=== PATIENT | female | born 1995 | race Caucasian/White ===

== ENCOUNTER 2016-09-21 01:17 | Emergency (ER) | payer OTHER ==
[2016-09-21 01:25] VITALS: TEMP 99; BMI 41.0
--- NOTE | 2016-09-21 01:40 | PDOC ---
History of Present Illness - General Chief Complaint: Pain, Acute Stated Complaint: ABDOMINAL PAIN Time Seen by Provider: 09/21/16 01:20 History Source: Patient Exam Limitations: No Limitations - History of Present Illness Travel History: No Timing/Duration: reports: intermittent Quality: reports: mild Abdominal Pain Onset Location: reports: suprapubic (right) Pain Radiation: reports: no radiation Past History - Travel Traveled outside of the country in the last 30 days: No Close contact w/someone who was outside of country & ill: No - Past Medical History Allergies/Adverse Reactions: Allergies Allergy/AdvReac Type Severity Reaction Status Date / Time No Known Allergies Allergy Verified 09/21/16 01:20 Home Medications: Ambulatory Orders Acyclovir [Zovirax -] 800 mg PO BID 08/23/16 Asthma: Yes - Surgical History Abdominal Surgery: Yes Appendectomy: Yes - Reproductive History (#): 0 Para: 0 Cervical CA: No Dysfunctional Uterine Bleeding: No Ectopic : No Endometrial CA: No Polycystic Ovaries: No Therapeutic (s) & number: No Tubal Ligation: No - Immunization History Immunization Up to Date: Yes - Psycho/Social/Smoking Cessation Hx Anxiety: No Suicidal Ideation: No Smoking Status: No Smoking History: Never smoked Have you smoked in the past 12 months: No Number of Cigarettes Smoked Daily: 0 Hx Alcohol Use: Yes (SOCIAL) Drug/Substance Use Hx: No Substance Use Type: None Abd/GI Specific PMHX - Complaint Specific PMHX Colitis: No Gall Bladder Disease: No GERD: No Hepatitis: No Irritable Bowel Synd (IBS): No Review of Systems - Review of Systems Able to Perform ROS?: Yes Comments:: 09/21/16 01:51 CONSTITUTIONAL: Absent: fever, chills, diaphoresis, generalized weakness, malaise, loss of appetite HEENT: Absent: rhinorrhea, nasal congestion, throat pain, throat swelling, difficulty swallowing, mouth swelling, ear pain, eye pain, visual Changes CARDIOVASCULAR: Absent: chest pain, loss of consciousness, palpitations, irregular heart rate, peripheral edema RESPIRATORY: Absent: cough, shortness of breath, dyspnea with exertion, orthopnea, wheezing, stridor, hemoptysis GASTROINTESTINAL: Absent: abdominal pain, abdominal distension, nausea, vomiting, diarrhea, constipation, melena, hematochezia GENITOURINARY: Left suprapubic pain +frequency, urgency, hesitancy, Absent: dysuria, hematuria, flank pain, genital pain MUSCULOSKELETAL: Absent: myalgia, arthralgia, joint swelling SKIN: Absent: rash, itching, pallor HEMATOLOGIC/IMMUNOLOGIC: Absent: easy bleeding, easy bruising, lymphadenopathy, frequent infections ENDOCRINE: Absent: unexplained weight gain, unexplained weight loss, heat intolerance, cold intolerance NEUROLOGIC: Absent: headache, focal weakness or paresthesias, dizziness, unsteady gait, seizure, mental status changes, bladder or bowel incontinence PSYCHIATRIC: Absent: anxiety, depression, suicidal or homicidal ideation, hallucinations. Is the patient limited Mauritanian proficient: No *Physical Exam - Vital Signs Last Vital Signs Temp Pulse Resp BP Pulse Ox 99 F 113 H 20 128/72 97 09/21/16 01:20 09/21/16 01:20 09/21/16 01:20 09/21/16 01:20 09/21/16 01:20 - Physical Exam Comments: 09/21/16 01:52 GENERAL: Well developed, well nourished. Awake and alert. No acute distress. HEENT: Normocephalic, atraumatic. PERRLA, EOMI. No conjunctival pallor. Sclera are non- icteric. Moist mucous membranes. Oropharynx is clear. NECK: Supple. Full ROM. No JVD. Carotid pulses 2+ and symmetric, without bruits. No thyromegaly. No lymphadenopathy. CARDIOVASCULAR: Regular rate and rhythm. No murmurs, rubs, or gallops. Distal pulses are 2+ and symmetric. PULMONARY: No evidence of respiratory distress. Lungs clear to auscultation bilaterally. No wheezing, rales or rhonchi. ABDOMINAL: Soft. Non-tender. Non-distended. No rebound or guarding. No organomegaly. Normoactive bowel sounds. MUSCULOSKELETAL Normal range of motion at all joints. No bony deformities or tenderness. No CVA tenderness. EXTREMITIES: No cyanosis. No clubbing. No edema. No calf tenderness. SKIN: Warm and dry. Normal capillary refill. No rashes. No jaundice. NEUROLOGICAL: Alert, awake, appropriate. Cranial nerves 2-12 intact. No deficits to light touch and temperature in face, upper extremities and lower extremities. No motor deficits in the in face, upper extremities and lower extremities. Normoreflexic in the upper and lower extremities. Normal speech. Toes are down- going bilaterally. Gait is normal without ataxia. PSYCHIATRIC: Cooperative. Good eye contact. Appropriate mood and affect. ED Treatment Course - LABORATORY CBC & Chemistry Diagram: 09/21/16 02:54 09/21/16 02:54 - RADIOLOGY Radiograph Interpretation: 09/21/16 03:09 Patient Name: Megan Real THIS IS A PRELIMINARYREPORT FROM IMAGING SLOT FLOORPERSON EXAM: Transabdominal pelvic ultrasound, endovaginal pelvic ultrasound and pelvic duplex IMAGES: 27 INDICATION: Suprapubic pain DATE OF SERVICE: 2016-09-21 02:16:17.0 COMPARISON: none FINDINGS: Transabdominal pelvic ultrasound:Uterus is anteverted and measures 7.1centimeters in length. Endovaginal pelvic ultrasound: The endometrium is 3millimeters in thickness which is normal. There are no fibroids. The right ovary measures 3.8centimeters in length, contains a 2.3 cm slightly complex cyst and demonstrates normal flow. Left ovary measures 3.5centimeters in length appears normal demonstrates normal flow. There is no significant free fluid. Pelvic duplex: There is normal arterial and venous flow in both ovaries. IMPRESSION: 2.3 cm slightly complex right ovarian cyst without torsion or free fluid. THIS DOCUMENT HAS BEEN ELECTRONICALLY SIGNED Rich Weller MD 09/21/2016 03:02 CLIVE [place] Please call Imaging Supervisor [employer] [phone] ([phone]) with questions 09/21/16 03:10 Patient Name: Megan Real THIS IS A PRELIMINARYREPORT FROM IMAGING [facility]LOOR[facility] EXAM: Ultrasound abdomen limited, right upper quadrant and limited abdominal duplex IMAGES: 38 INDICATION: Right upper quadrant pain DATE OF SERVICE: 2016-09-21 02:05:48.0 COMPARISON: none FINDINGS: Right upper quadrant ultrasound:The liver is normal, without mass or biliary duct dilation. The gallbladder is partially collapsed but appears normal. The CBD is not dilated and measures4 millimeters in diameter. Right kidney measures 10.0centimeters in length and is unremarkable. The visualized aorta and IVC are normal. Pancreas is partially obscured, but appears normal. Abdominal duplex: The main portal vein demonstrates normal hepatopedal flow. IMPRESSION: No evidence of pathology. THIS DOCUMENT HAS BEEN ELECTRONICALLY SIGNED Rich Weller MD 09/21/16 03:28 Progress Note - Progress Note Progress Note: 21-year-old female presents to the emergency department complaining of right supra pubic pain 2 weeks with urinary urgency/frequency without hematuria/vag d /c or bleed. As as 2 days ago, patient developed right upper quadrant discomfort. Pain is described as 3/10 dull nonradiating intermittent discomfort. There are no exacerbating or alleviating factors. Patient reports she developed a dry cough with a low-grade fever and chills but no n/v/d, cp, sob. Pt believes her discomfort to her abd is from taking acyclovir (x5d). Pt also ran out of her inhaler/proair *DC/Admit/Observation/Transfer Diagnosis at time of Disposition: Cyst of ovary Qualifiers: Laterality: right Qualified Code(s): N83.20 - Unspecified ovarian cysts UTI (urinary tract infection) Qualifiers: Urinary tract infection type: acute cystitis Hematuria presence: without hematuria Qualified Code(s): N30.00 - Acute cystitis without hematuria - Discharge Dispostion Disposition: HOME Condition at time of disposition: Improved Admit: No - Referrals Referrals: Angus Adames [Primary Care Provider] - Destiny Unger MD [Staff Physician] - - Patient Instructions Printed Discharge Instructions: Urinary Tract Infection, DI for Ovarian Cyst Additional Instructions: Take tylenol/motrin as needed for pain Rest Pelvic rest Increase fluids Follow up with your lead architect or the one listed on your discharge
[2016-09-21 03:01] LABS: URINE APPEARANCE CLEAR; URINE BILIRUBIN NEGATIVE (NEGATIVE); URINE COLOR YELLOW; URINE GLUCOSE (UA) NEGATIVE (NEGATIVE); URINE KETONE NEGATIVE (NEGATIVE); URINE NITRITE NEGATIVE (NEGATIVE); URINE UROBILINOGEN NEGATIVE E.U./dl (0.2-1.0)
[2016-09-21 03:02] LABS: MCH 32.2 pg (25.7-33.7); MCHC 33.6 g/dl (32.0-36.0); MEAN CELL VOLUME 95.9 fl (80-96); MEAN PLT VOLUME 8.6 fl (7.5-11.1); PLATELET COUNT 243 K/MM3 (134-434); RDW 13.1 % (11.6-15.6); WHITE BLOOD COUNT 8.1 K/mm3 (4.0-10.0)
[2016-09-21 03:03] LABS: URINE BLOOD 1+ (NEGATIVE); URINE LEUK ESTERASE TRACE (NEGATIVE); URINE PROTEIN 1+ (NEGATIVE)
[2016-09-21 03:06] LABS: URINE BACTERIA RARE /hpf (NONE SEEN); URINE HYALINE CAST 4 /lpf; URINE MUCUS RARE; URINE RBC 2 /hpf (0-3); URINE WBC 6 /hpf (3-5)
[2016-09-21 03:20] LABS: ALBUMIN 3.8 g/dl (3.4-5.0); ANION GAP 10 (8-16); BILIRUBIN,TOTAL 0.3 mg/dL (0.2-1.0); CALCIUM 8.8 mg/dL (8.5-10.1); CO2 25 mmol/L (21-32); CREATININE 0.8 mg/dL (0.55-1.02); GLUCOSE,RANDOM 101 mg/dL (74-106); SGOT/AST 21 U/L (15-37); SGPT/ALT 34 U/L (12-78); TOT PROT 7.7 g/dl (6.4-8.2)
[2016-09-21 03:21] LABS: ALK PHOS 93 U/L (45-117)
[2016-09-21 03:38] LABS: PLATELET COMMENT2 NO CLOTTING DETECTED; PLATELET ESTIMATE ADEQUATE (NORMAL)
[2016-09-21 03:39] VITALS: BP 115/70; PULSE 76
== END 2016-09-21 03:39 | disposition home or self-care (01) ==
LOC: JER 01:17
DX: N30.00 Acute cystitis without hematuria (principal); N83.291 Other ovarian cyst, right side
CPT/HCPCS: 36415; 76705-TC; 76830-TC; 80053; 81003; 81015; 84703; 85025; 99282-25

== ENCOUNTER 2016-09-22 12:46 | Emergency (ER) | payer OTHER ==
[2016-09-22 13:17] VITALS: BP 125/45; PULSE 88; TEMP 98; BMI 39.6
--- NOTE | 2016-09-22 16:52 | PDOC ---
History of Present Illness - General Chief Complaint: Pain, Acute Stated Complaint: PAIN Time Seen by Provider: 09/22/16 16:45 History Source: Patient Exam Limitations: No Limitations - History of Present Illness Initial Comments: CHIEF COMPLAINT: 21 y/o afebrile female with PMH Herpes c/o right sided pelvic pain. HISTORY OF PRESENT ILLNESS: The patient was seen here approximately 36 hours ago for the same complaint. She was diagnosed with a right ovarian cyst and was discharged to home. She states she has been taking 200mg of Ibuprofen every once in a while for the pain with little relief. She denies f/c, n/v/d, CP, SOB, back pain, hematuria, dysuria. She tried to see her [employer]AM MEMBER but could not get an appointment until next week. Vital signs on arrival are within normal limits. REVIEW OF SYSTEMS: GENERAL/CONSTITUTIONAL: No fever/chills. No weakness. No weight change. HEAD, EYES, EARS, NOSE AND THROAT: No change in vision. No ear pain or discharge. No sore throat. CARDIOVASCULAR: No chest pain or shortness of breath. RESPIRATORY: No cough, wheezing, or hemoptysis. GASTROINTESTINAL: +right pelvic pain. No nausea, vomiting, diarrhea, constipation. GENITOURINARY: No dysuria, frequency, or change in urination. MUSCULOSKELETAL: No joint or muscle swelling or pain. No neck or back pain. SKIN: No rash or easy bruising. NEUROLOGIC: No headache, vertigo, loss of consciousness, or loss of sensation. PHYSICAL EXAM: GENERAL: The patient is awake, alert, and fully oriented, in no acute distress. The patient is well appearing, obese and ambulatory. HEAD: Normal with no signs of trauma. ENT: Pupils equal, round and reactive to light, extraocular movements intact, sclera anicteric, conjunctiva clear. Neck supple. LUNGS: Clear to auscultation bilaterally. Normal excursion. No respiratory distress or use of accessory muscles. CV: RRR, S1/S2, no MRG. Cap refill < 2 sec. ABDOMEN: Soft, obese, TTP of RLQ/right pelvic region. No rebound, guarding or rigidity. No flank pain b/l BACK: No CVA TTP b/l VAGINAL: Right adnexal TTP and CMT. Small painful lesion seen at entrance to vaginal canal, consistent with herpes. EXTREMITIES: Normal range of motion, no edema. NEUROLOGICAL: Normal speech, normal gait. CN II-XII grossly intact. PSYCH: Normal mood, normal affect. SKIN: Warm, dry, normal turgor, no rashes or lesions noted. Past History - Past Medical History Allergies/Adverse Reactions: Allergies Allergy/AdvReac Type Severity Reaction Status Date / Time No Known Allergies Allergy Verified 09/22/16 13:14 Home Medications: Ambulatory Orders NK [No Known Home Medication] 09/22/16 Asthma: Yes Other medical history: OVARIAN CYST - Surgical History Abdominal Surgery: Yes Appendectomy: Yes - Reproductive History (#): 0 Para: 0 Cervical CA: No Dysfunctional Uterine Bleeding: No Ectopic : No Endometrial CA: No Polycystic Ovaries: No Therapeutic (s) & number: No Tubal Ligation: No - Immunization History Immunization Up to Date: Yes - Psycho/Social/Smoking Cessation Hx Anxiety: No Suicidal Ideation: No Smoking Status: No Smoking History: Never smoked Have you smoked in the past 12 months: No Number of Cigarettes Smoked Daily: 0 Information on smoking cessation initiated: No Hx Alcohol Use: No Drug/Substance Use Hx: No Substance Use Type: None *Physical Exam - Vital Signs Last Vital Signs Temp Pulse Resp BP Pulse Ox 98.0 F 88 18 125/45 100 09/22/16 13:14 09/22/16 13:14 09/22/16 13:14 09/22/16 13:14 09/22/16 13:14 Medical Decision Making - Medical Decision Making A/P: 21 y/o female with diagnosed right ovarian cyst who is underdosing herself with Ibuprofen c/o continued right pelvic pain. Plan is as follows: 1. UA/culture 2. Repeat transvaginal ultrasound 3. IM Toradol hcg drawn 2 days ago - negative; will not recheck I am signing this patient out to my colleague: CANDI Vuong In brief, this patient is being seen in the ED for a chief complaint of: right pelvic pain I have completed the initial assessment interview note and have ordered: UA/ culture I have reviewed the following results: UA Pending results are: Transvaginal US Plan for disposition is as follows: Pending *DC/Admit/Observation/Transfer Diagnosis at time of Disposition: Pelvic pain Ovarian cyst Qualifiers: Laterality: right Qualified Code(s): N83.20 - Unspecified ovarian cysts - Discharge Dispostion Condition at time of disposition: Stable
[2016-09-22 18:05] LABS: URINE APPEARANCE CLEAR; URINE BILIRUBIN NEGATIVE (NEGATIVE); URINE COLOR YELLOW; URINE GLUCOSE (UA) NEGATIVE (NEGATIVE); URINE KETONE 2+ (NEGATIVE); URINE NITRITE NEGATIVE (NEGATIVE); URINE PROTEIN NEGATIVE (NEGATIVE); URINE UROBILINOGEN NEGATIVE E.U./dl (0.2-1.0)
[2016-09-22 18:14] LABS: URINE BLOOD 1+ (NEGATIVE); URINE LEUK ESTERASE TRACE (NEGATIVE)
[2016-09-22 18:15] LABS: URINE MUCUS RARE; URINE RBC 2 /hpf (0-3); URINE WBC 2 /hpf (3-5)
[2016-09-22] MEDS ORDERED: KETOROLAC TROMETHAMINE 60 MG/2 ML VIAL IM ONE (18:38)
[2016-09-22] MEDS ORDERED: KETOROLAC TROMETHAMINE 60 MG/2 ML VIAL ONE (19:14)
--- NOTE | 2016-09-22 19:20 | PDOC ---
*Physical Exam - Vital Signs Last Vital Signs Temp Pulse Resp BP Pulse Ox 98.0 F 88 18 125/45 100 09/22/16 13:14 09/22/16 13:14 09/22/16 13:14 09/22/16 13:14 09/22/16 13:14 - Physical Exam Comments: 09/22/16 19:20 Sign-out received from outgoing ER provider Jose Angel. Pt interviewed and examined. Ancillary studies reviewed. Awaiting TV US results. 09/22/16 21:49 Ultrasound results: A small right ovarian cyst is noted which appears to be slightly diminished in size comparison to previous exam of 09/21/2016 ? due to cyst rupture. Department of a small amount of free fluid is seen within the cul- de-sac. Read by Chung Nance M.D. Patient reassessed. Patient complains of worsening nausea and abdominal pain. Discussed with patient that she can be managed outpatient with pain control or admitted for observation. At this time patient states she wants to stay. Will administer pain medication and reassess. -Perococet 5/325 po -8 mg Zofran ODT ED Treatment Course - ADDITIONAL ORDERS Additional order review: Laboratory Results 09/22/16 17:53 Urine Color Yellow Urine Appearance Clear Urine pH 6.0 Ur Specific Man 1.019 Urine Protein Negative Urine Glucose (UA) Negative Urine Ketones 2+ H Urine Blood 1+ H Urine Nitrite Negative Urine Bilirubin Negative Urine Urobilinogen Negative Ur Leukocyte Esterase Trace H Urine RBC 2 Urine WBC 2 Ur Epithelial Cells Rare Urine Mucus Rare *DC/Admit/Observation/Transfer Diagnosis at time of Disposition: Pelvic pain, Ruptured ovarian cyst Ovarian cyst Qualifiers: Laterality: right Qualified Code(s): N83.20 - Unspecified ovarian cysts - Discharge Dispostion Disposition: HOME Condition at time of disposition: Stable Admit: No - Prescriptions Prescriptions: Oxycodone HCl/Acetaminophen [Percocet 5-325 mg Tablet] 1 tab PO Q8H PRN #15 tablet MDD 3 PRN Reason: Pain Ondansetron [Zofran *Odt*] 8 mg SL TID PRN #12 od.tablet PRN Reason: Nausea And/Or Vomiting - Referrals Referrals: Angus Adames [Primary Care Provider] - Everardo Rae MD [Staff Physician] - - Patient Instructions Printed Discharge Instructions: DI for Ovarian Cyst Additional Instructions: Please take medication as prescribed. As discussed, do not operate vehicles or heavy machinery while taking Percocet. You MUST follow up with a realtime court reporter in the next two days. If you experience any severe pain, extreme vaginal bleeding (more than one soaked pad per hour (, fever, chills, nausea, vomiting, diarrhea, that is not resolved with medication or any new or worsening symptoms please return to the ED. - Post Discharge Activity Work/School Note: Back to Work
[2016-09-22] MEDS ORDERED: OXYCODONE/APAP 5/325MG COMBO TABLET PO ONE (21:30)
[2016-09-22] MEDS ORDERED: ONDANSETRON *ODT* 4 MG TABLET SL ONE (21:40)
[2016-09-22] MEDS ORDERED: ONDANSETRON *ODT* 4 MG TABLET ONE (21:52)
[2016-09-22] MEDS ORDERED: OXYCODONE/APAP 5/325MG COMBO TABLET ONE (21:52)
== END 2016-09-22 23:14 | disposition home or self-care (01) ==
LOC: JER 12:46
PROC: 3E0233Z Introduction of Anti-inflammatory into Muscle, Percutaneous Approach (ICD-10-PCS; principal; 2016-09-22)
DX: N83.291 Other ovarian cyst, right side (principal); J45.909 Unspecified asthma, uncomplicated
CPT/HCPCS: 76830-TC; 81003; 81015; 87086; 96372; 99282-25

== ENCOUNTER 2017-05-04 05:08 | Emergency (ER) | payer OTHER ==
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
[2017-05-04] MEDS ORDERED: ACETAMINOPHEN 500 MG TABLET (FP) PO ONE (06:34)
[2017-05-04] MEDS ORDERED: BACITRACIN 15 GM TUBE TOPICAL OINTMENT TP ONE (06:34)
[2017-05-04] MEDS ORDERED: DIPHTH,PERTUSS(ACELL),TET VAC 0.5 ML VIAL IM ONE (06:34)
[2017-05-04] MEDS ORDERED: ACETAMINOPHEN 325 MG TABLET (FP) ONE (06:34)
[2017-05-04] MEDS ORDERED: BACITRACIN 0.9 GM PACKET ONE (06:40)
[2017-05-04 07:04] VITALS: BMI 30.2
[2017-05-04 07:10] LABS: URINE APPEARANCE CLOUDY; URINE BILIRUBIN NEGATIVE (NEGATIVE); URINE BLOOD 1+ (NEGATIVE); URINE COLOR YELLOW; URINE GLUCOSE (UA) NEGATIVE (NEGATIVE); URINE KETONE 1+ (NEGATIVE); URINE LEUK ESTERASE TRACE (NEGATIVE); URINE NITRITE NEGATIVE (NEGATIVE); URINE UROBILINOGEN NEGATIVE mg/dL (0.2-1.0)
[2017-05-04 07:14] LABS: URINE PROTEIN 2+ (NEGATIVE)
[2017-05-04 07:15] LABS: URINE MUCUS FEW; URINE RBC 2 /hpf (0-3); URINE WBC 8 /hpf (3-5)
--- NOTE | 2017-05-04 07:41 | PDOC ---
*Physical Exam - Vital Signs Last Vital Signs Temp Pulse Resp BP Pulse Ox 97.9 F 85 18 130/70 100 05/04/17 05:09 05/04/17 05:09 05/04/17 05:09 05/04/17 05:09 05/04/17 05:09 ED Treatment Course - ADDITIONAL ORDERS Additional order review: Laboratory Results 05/04/17 05/04/17 06:41 06:41 Urine Color Yellow Urine Appearance Cloudy Urine pH 5.0 Urine Protein 2+ H Urine Glucose (UA) Negative Urine Ketones 1+ H Urine Blood 1+ H Urine Nitrite Negative Urine Bilirubin Negative Urine Urobilinogen Negative Ur Leukocyte Esterase Trace Urine RBC 2 Urine WBC 8 Ur Epithelial Cells Moderate Urine Mucus Few Urine HCG, Qual Negative - Medications Given in the ED: ED Medications Discontinued Medications Generic Name Dose Route Start Last Admin Trade Name Freq PRN Reason Stop Dose Admin Acetaminophen 1,000 mg 05/04/17 06:34 05/04/17 06:39 Tylenol - PO 05/04/17 06:35 1,000 mg ONCE ONE Administration Bacitracin 1 applic 05/04/17 06:34 05/04/17 06:49 Bacitracin - TP 05/04/17 06:35 1 applic ONCE ONE Administration Diphtheria/Tetanus/Acell Pertussis 0.5 ml 05/04/17 06:34 05/04/17 06:38 Adacel Adolescent/Adult - IM 05/04/17 06:35 0.5 ml .ONCE ONE Administration *DC/Admit/Observation/Transfer Diagnosis at time of Disposition: Closed head injury Qualifiers: Encounter type: initial encounter Qualified Code(s): S09.90XA - Unspecified injury of head, initial encounter - Discharge Dispostion Disposition: HOME Condition at time of disposition: Stable Admit: No - Referrals Referrals: Angus Adames [Primary Care Provider] - - Patient Instructions - Post Discharge Activity
[2017-05-04 10:09] VITALS: BP 101/55; PULSE 81; TEMP 98.1
== END 2017-05-04 10:09 | disposition home or self-care (01) ==
LOC: JER 05:08
PROC: 3E0234Z Introduction of Serum, Toxoid and Vaccine into Muscle, Percutaneous Approach (ICD-10-PCS; principal; 2017-05-04)
DX: S00.03XA Contusion of scalp, initial encounter (principal); S01.81XA Laceration without foreign body of other part of head, initial encounter; S01.21XA Laceration without foreign body of nose, initial encounter; Y04.0XXA Assault by unarmed brawl or fight, initial encounter; Y93.89 Activity, other specified; Y92.014 Private driveway to single-family (private) house as the place of occurrence of the external cause; Y07.411 Sister, perpetrator of maltreatment and neglect
CPT/HCPCS: 70450-TC; 81003; 81015; 84703; 90471; 90715; 99285-25

== ENCOUNTER 2017-07-23 15:48 | Emergency (ER) | payer OTHER ==
[2017-07-23 16:04] VITALS: BMI 31.1
[2017-07-23 16:59] LABS: BASOPHIL 0.4 % (0-2.0); EOSINOPHIL 2.4 % (0-4.5); MCH 32.1 pg (25.7-33.7); MCHC 33.9 g/dl (32.0-36.0); MEAN CELL VOLUME 94.8 fl (80-96); MEAN PLT VOLUME 8.5 fl (7.5-11.1); NEUTROPHILS 63.3 % (42.8-82.8); PLATELET COUNT 277 K/MM3 (134-434); WHITE BLOOD COUNT 10.8 K/mm3 (4.0-10.0)
--- NOTE | 2017-07-23 17:05 | PDOC ---
History of Present Illness - General Chief Complaint: Pain, Acute Stated Complaint: ABD PAIN Time Seen by Provider: 07/23/17 16:38 - History of Present Illness Initial Comments: 07/23/17 16:59 21 yo F with h/o appendectomy who presents with RLQ abdominal pain. Pt. reports onset of sharp, remitting, RLQ abdominal pain beginning yesterday evening. Has been exeperiencing crampy abdominal pain for 2 weeks. Also endorses vaginal spotting and nausea yesterday evening and this morning. No clots or tissues visualized. Denies fevers/chills, dysuria, hematuria, appetite changes, diarrhea/constipation, BRBPR, lightheadedness, chest pain, palpitations, SOB, weakness. No PCP. confirmed by urine BHCG at outpatient [facility]OMER ASSISTANT ( Liss Almendarez) 2 weeks ago. Not on OCP. Transvaginal U/S () Unremarkable. LMP 05/01/17 with irregular spotting and dysmennorhea. Past History - Past Medical History Allergies/Adverse Reactions: Allergies Allergy/AdvReac Type Severity Reaction Status Date / Time No Known Allergies Allergy Verified 07/23/17 15:52 Home Medications: Ambulatory Orders NK [No Known Home Medication] 05/04/17 Asthma: Yes COPD: No - Surgical History Abdominal Surgery: Yes Appendectomy: Yes - Reproductive History Is Patient Now?: Yes (#): 0 Para: 0 Cervical CA: No Dysfunctional Uterine Bleeding: No Ectopic : No Endometrial CA: No Polycystic Ovaries: No Therapeutic (s) & number: Yes (x1) Tubal Ligation: No - Immunization History Immunization Up to Date: Yes - Suicide/Smoking/Psychosocial Hx Smoking Status: No Smoking History: Never smoked Have you smoked in the past 12 months: No Number of Cigarettes Smoked Daily: 0 Information on smoking cessation initiated: Yes Hx Alcohol Use: No Drug/Substance Use Hx: No Substance Use Type: None Review of Systems - Review of Systems Comments:: 07/23/17 17:08 GENERAL/CONSTITUTIONAL: No fever or chills. No weakness. HEAD, EYES, EARS, NOSE AND THROAT: No change in vision. No ear pain or discharge. No sore throat.- CARDIOVASCULAR: No chest pain or shortness of breath RESPIRATORY: No cough, wheezing, or hemoptysis. GASTROINTESTINAL: + Abdominal pain. No nausea, vomiting, diarrhea or constipation. GENITOURINARY:+ Vaginal bleeding. No dysuria, frequency, or change in urination. MUSCULOSKELETAL: No joint or muscle swelling or pain. No neck or back pain. SKIN: No rash NEUROLOGIC: No headache, vertigo, loss of consciousness, or change in strength/ sensation. ENDOCRINE: No increased thirst. No abnormal weight change HEMATOLOGIC/LYMPHATIC: No anemia, easy bleeding, or history of blood clots. ALLERGIC/IMMUNOLOGIC: No hives or skin allergy. *Physical Exam - Vital Signs Last Vital Signs Temp Pulse Resp BP Pulse Ox 97.9 F 94 H 20 117/70 100 07/23/17 15:52 07/23/17 15:52 07/23/17 15:52 07/23/17 15:52 07/23/17 15:52 - Physical Exam Comments: 07/23/17 17:09 GENERAL: Awake, alert, and fully oriented, in no acute distress HEAD: No signs of trauma, normocephalic, atraumatic EYES: PERRLA, EOMI, sclera anicteric, conjunctiva clear ENT: Hearing grossly normal, nares patent, oropharynx clear without exudates. Moist mucosa NECK: Normal ROM, no JVD, or masses LUNGS: No distress, speaks full sentences, clear to auscultation bilaterally HEART: Regular rate and rhythm, normal S1 and S2, no murmurs, rubs or gallops, peripheral pulses normal and equal bilaterally. ABDOMEN: Soft, RLQ > LLQ ttp. Normoactive bowel sounds. No guarding,no rigidity , no rebound. No masses. Neg CVA ttp. EXTREMITIES : Normal inspection, Normal range of motion, no edema. No clubbing or cyanosis. SKIN: Warm, Dry, normal turgor, no rashes or lesions noted. ED Treatment Course - LABORATORY CBC & Chemistry Diagram: 07/23/17 04:45 07/23/17 04:45 Medical Decision Making - Medical Decision Making 07/23/17 17:12 21 yo F with h/o appendectomy who reports acute onset of sharp , remitting, RLQ abdominal pain beginning yesterday evening. Associated with vaginal spotting and nausea yesterday evening and this morning. No clots or tissues visualized. confirmed by in office test 2 weeks ago. Denies fevers/chills, dysuria, hematuria, appetite changes, diarrhea/ constipation, BRBPR, lightheadedness, chest pain, palpitations, SOB, weakness. Physical exam reveals RLQ/LLQ ttp. Hemodynamically stable. Differential includes ectopic vs. ( incomplete, complete, threatened). ED Course: CBC, CMP,Cardiac, BNP, Trop EKG, CXR UA 07/23/17 18:32 CBC, CMP: Unremarkable UA: Neg Patient is comfortable and stable at bedside. Advised to f/u with OBGYN with strict return precautions. Transvaginal U/S pending. 07/23/17 19:13 U/S: 5 w 6 d intrauterine . *DC/Admit/Observation/Transfer Diagnosis at time of Disposition: Vaginal bleeding before 22 weeks gestation - Discharge Dispostion Disposition: HOME Condition at time of disposition: Stable Admit: No - Referrals Referrals: Everardo Rae MD [Staff Physician] - - Patient Instructions Printed Discharge Instructions: DI for Vaginal Bleeding During Additional Instructions: Please return to the emergency department with any new or worsening symptoms or concerns. Please establish care with [facility]IST[facility] physician this following week. - Post Discharge Activity - Attestations Physician Attestion: 07/23/17 18:48 I attest to the information provided in this note.
[2017-07-23] MEDS ORDERED: ACETAMINOPHEN 325 MG TABLET (FP) PO ONE (17:11)
[2017-07-23] MEDS ORDERED: ONDANSETRON 4 MG TABLET PO ONE (17:11)
[2017-07-23] MEDS ORDERED: ONDANSETRON *ODT* 4 MG TABLET ONE (17:17)
[2017-07-23] MEDS ORDERED: ACETAMINOPHEN 325 MG TABLET (FP) ONE (17:17)
[2017-07-23 17:32] LABS: URINE APPEARANCE CLOUDY; URINE BILIRUBIN NEGATIVE (NEGATIVE); URINE BLOOD NEGATIVE (NEGATIVE); URINE COLOR YELLOW; URINE GLUCOSE (UA) NEGATIVE (NEGATIVE); URINE KETONE NEGATIVE (NEGATIVE); URINE NITRITE NEGATIVE (NEGATIVE); URINE PROTEIN NEGATIVE (NEGATIVE); URINE UROBILINOGEN NEGATIVE mg/dL (0.2-1.0)
[2017-07-23 17:37] LABS: ALBUMIN 3.4 g/dl (3.4-5.0); ANION GAP 6 (8-16); CALCIUM 8.5 mg/dL (8.5-10.1); CO2 27 mmol/L (21-32); GLUCOSE,RANDOM 86 mg/dL (74-106); SGOT/AST 17 U/L (15-37); SGPT/ALT 25 U/L (12-78)
--- NOTE | 2017-07-23 17:45 | PDOC ---
Attending Attestation - Resident Resident Name: Daniel Holliday - ED Attending Attestation I have performed the following: I have examined & evaluated the patient, The case was reviewed & discussed with the resident, I agree w/resident's findings & plan, Exceptions are as noted - HPI HPI: 07/23/17 17:42 21 yo F currently , unsure last menstrual period with positive test 2 weeks ago, here today with rlq pain and abd pain. vaginal spotting. no h/o of prior ectopic. pain intermittent. moderate. no mod factors. no urinary complaints. - Physicial Exam PE: 07/23/17 17:44 awake alert lungs clear bilat heart rrr no mrg. abd soft NT ND. skin warm and dry. alert oriented x 3 - Medical Decision Making 07/23/17 17:44 differential includes, ectopic, , iup, uti, ovarian cyst plans labs ua tvus. blood type. 07/23/17 19:12 us demonstrating IUP 5 wk and 6 days iup with yolk sac , no free fluid. blood type RH positive. will follow up with ob given referral.
[2017-07-23 17:53] LABS: ALK PHOS 92 U/L (45-117); BILIRUBIN,TOTAL 0.5 mg/dL (0.2-1.0); TOT PROT 7.1 g/dl (6.4-8.2)
[2017-07-23 19:30] VITALS: BP 107/73; PULSE 82; TEMP 98.7
[2017-07-23 22:32] LABS: URINE LEUK ESTERASE Negative (NEGATIVE)
== END 2017-07-23 19:30 | disposition home or self-care (01) ==
LOC: JER 15:48
DX: O26.891 Other specified pregnancy related conditions, first trimester (principal); O20.8 Other hemorrhage in early pregnancy; Z3A.01 Less than 8 weeks gestation of pregnancy
CPT/HCPCS: 36415; 76817-TC; 80053; 81003; 84702; 85025; 86850; 86900; 86901; 99284-25

== ENCOUNTER 2017-07-28 15:53 | Emergency (ER) | payer OTHER ==
--- NOTE | 2017-07-28 15:59 | PDOC ---
Rapid Medical Evaluation Medical Evaluation: Allergies Allergy/AdvReac Type Severity Reaction Status Date / Time No Known Allergies Allergy Verified 07/28/17 15:54 07/28/17 15:57 Pt here for c/o: vag bleeding, 6 wks preg, + abd pain Pt briefly examined: vss Pt ordered for: cbc, comp, beta hcg, ua, upreg, preg u/s Pt to proceed to the ED <Silvia Lawrence - Last Filed: 07/28/17 15:57> Medical Evaluation: Allergies Allergy/AdvReac Type Severity Reaction Status Date / Time No Known Allergies Allergy Verified 07/28/17 15:57 Vital Signs Temp Pulse Resp BP Pulse Ox 98.1 F 87 18 116/58 100 07/28/17 15:58 07/28/17 15:58 07/28/17 15:58 07/28/17 15:58 07/28/17 15:58 <Sofy Watson - Last Filed: 07/28/17 22:15> Time Seen by Provider: 07/28/17 15:57 Discharge Disposition <Silvia Lawrence - Last Filed: 07/28/17 15:57> <Sofy Watson - Last Filed: 07/28/17 22:15> - Diagnosis Abdominal pain, Vaginal bleeding before 22 weeks gestation
[2017-07-28 16:01] VITALS: BP 116/58; PULSE 87; TEMP 98.1; BMI 30.2
[2017-07-28 16:43] LABS: URINE APPEARANCE CLEAR; URINE BILIRUBIN NEGATIVE (NEGATIVE); URINE BLOOD NEGATIVE (NEGATIVE); URINE COLOR LT. YELLOW; URINE GLUCOSE (UA) NEGATIVE (NEGATIVE); URINE KETONE 1+ (NEGATIVE); URINE NITRITE NEGATIVE (NEGATIVE); URINE PROTEIN NEGATIVE (NEGATIVE); URINE UROBILINOGEN 0.2 mg/dL (0.2-1.0)
[2017-07-28 17:25] LABS: ALBUMIN 3.8 g/dl (3.4-5.0); ANION GAP 11 (8-16); BILIRUBIN,TOTAL 0.8 mg/dL (0.2-1.0); CALCIUM 9.1 mg/dL (8.5-10.1); CO2 23 mmol/L (21-32); CREATININE 0.7 mg/dL (0.55-1.02); GLUCOSE,RANDOM 83 mg/dL (74-106); SGOT/AST 25 U/L (15-37); SGPT/ALT 41 U/L (12-78); TOT PROT 7.2 g/dl (6.4-8.2)
[2017-07-28 17:40] LABS: ALK PHOS 99 U/L (45-117)
[2017-07-28 19:53] LABS: URINE LEUK ESTERASE Negative (NEGATIVE)
--- NOTE | 2017-07-28 22:16 | PDOC ---
History of Present Illness - History of Present Illness Initial Comments: 07/28/17 22:31 The patient is a 21 year old female who is currently (~5 weeks 6 days) , with a significant past medical history of asthma, who presents to the emergency department with vaginal bleeding for 5 days. She states her LMP was in the beginning of May. She was seen 2 weeks ago where they did an ultrasound and she found out that she was 5 weeks . She is currently experiencing suprapublic cramping and small vaginal blood clots. She denies recent fevers, chills, headache or dizziness. She denies recent nausea, vomit, diarrhea or constipation. She denies recent dysuria, frequency, urgency or hematuria. She denies recent chest pain or shortness of breath. Allergies: NKA Past surgical history: tonsillectomy Social history: Nonsmoker. Denies EtOH use and recreational drug use. Primary Care Physician: Angus Adames <Lynette Hathaway - Last Filed: 07/28/17 22:31> <Sofy Watson - Last Filed: 07/29/17 02:17> - General Chief Complaint: Vaginal Bleeding Stated Complaint: ABD PAIN, BLEEDING (6 WKS ) Time Seen by Provider: 07/28/17 15:57 Past History <Lynette Hathaway - Last Filed: 07/28/17 22:31> - Past Medical History Asthma: Yes COPD: No - Surgical History Abdominal Surgery: Yes Appendectomy: Yes - Reproductive History (#): 0 Para: 0 Cervical CA: No Dysfunctional Uterine Bleeding: No Ectopic : No Endometrial CA: No Polycystic Ovaries: No Therapeutic (s) & number: Yes (x1) Tubal Ligation: No - Immunization History Immunization Up to Date: Yes - Suicide/Smoking/Psychosocial Hx Smoking Status: No Smoking History: Never smoked Have you smoked in the past 12 months: No Number of Cigarettes Smoked Daily: 0 Information on smoking cessation initiated: No Hx Alcohol Use: No Drug/Substance Use Hx: No Substance Use Type: None <Sofy Watson - Last Filed: 07/29/17 02:17> - Past Medical History Allergies/Adverse Reactions: Allergies Allergy/AdvReac Type Severity Reaction Status Date / Time No Known Allergies Allergy Verified 07/28/17 15:57 Home Medications: Ambulatory Orders NK [No Known Home Medication] 05/04/17 Abd/GI Specific PMHX - Complaint Specific PMHX Colitis: No Gall Bladder Disease: No GERD: No Hepatitis: No Irritable Bowel Synd (IBS): No <Sofy Watson - Last Filed: 07/29/17 02:17> Review of Systems - Review of Systems Comments:: 07/28/17 22:31 CONSTITUTIONAL: Absent: fever, no chills, no fatigue EYES: Absent: visual changes ENT: Absent: ear pain, no sore throat CARDIOVASCULAR: Absent: chest pain, no palpitations RESPIRATORY: Absent: cough, no SOB GI: Present: suprapubic tenderness. Absent: no nausea, no vomiting, no constipation, no diarrhea GENITOURINARY: Absent: dysuria, no frequency, no hematuria NUTRITION HELPER: Present: passing small blood clots MUSCULOSKELETAL: Absent: back pain, no arthralgia, no myalgia SKIN: Absent: rash NEURO: Absent: headache <Lynette Hathaway - Last Filed: 07/28/17 22:31> *Physical Exam - Vital Signs Last Vital Signs Temp Pulse Resp BP Pulse Ox 98.1 F 87 18 116/58 100 07/28/17 15:58 07/28/17 15:58 07/28/17 15:58 07/28/17 15:58 07/28/17 15:58 - Physical Exam Comments: 07/28/17 22:31 GENERAL: Well-appearing, well-nourished. No apparent distress. HEENT: Normocephalic, atraumatic. PERRL, EOM intact. CARDIOVASCULAR: Normal S1, S2. Regular rate and rhythm. PULMONARY: Clear to auscultation bilaterally. ABDOMEN: Soft, non-distended, suprapubic tenderness. EXTREMITIES: Normal ROM in all four extremities. No gross deformities. SKIN: Warm, dry. No rash NEUROLOGICAL: No focal neurological deficits. <Lynette Hathaway - Last Filed: 07/28/17 22:31> - Vital Signs Last Vital Signs Temp Pulse Resp BP Pulse Ox 98.1 F 87 18 116/58 100 07/28/17 15:58 07/28/17 15:58 07/28/17 15:58 07/28/17 15:58 07/28/17 15:58 <Sofy Watson - Last Filed: 07/29/17 02:17> ED Treatment Course - LABORATORY CBC & Chemistry Diagram: 07/28/17 16:30 07/28/17 16:30 - ADDITIONAL ORDERS Additional order review: Laboratory Results 07/28/17 07/28/17 16:30 16:30 Sodium 137 Potassium 3.9 Chloride 103 Carbon Dioxide 23 Anion Gap 11 BUN 8 D Creatinine 0.7 D Creat Clearance w eGFR > 60 Random Glucose 83 Calcium 9.1 Total Bilirubin 0.8 D AST 25 D ALT 41 D Alkaline Phosphatase 99 Total Protein 7.2 Albumin 3.8 Beta HCG, Quant .1 Urine Color Lt. yellow Urine Appearance Clear Urine pH 8.0 Ur Specific [place] 1.020 Urine Protein Negative Urine Glucose (UA) Negative Urine Ketones 1+ H Urine Blood Negative Urine Nitrite Negative Urine Bilirubin Negative Urine Urobilinogen 0.2 Ur Leukocyte Esterase Negative <Lynette Hathaway - Last Filed: 07/28/17 22:31> - LABORATORY CBC & Chemistry Diagram: 07/28/17 16:30 07/28/17 16:30 - ADDITIONAL ORDERS Additional order review: Laboratory Results 07/28/17 07/28/17 16:30 16:30 Sodium 137 Potassium 3.9 Chloride 103 Carbon Dioxide 23 Anion Gap 11 BUN 8 D Creatinine 0.7 D Creat Clearance w eGFR > 60 Random Glucose 83 Calcium 9.1 Total Bilirubin 0.8 D AST 25 D ALT 41 D Alkaline Phosphatase 99 Total Protein 7.2 Albumin 3.8 Beta HCG, Quant .1 Urine Color Lt. yellow Urine Appearance Clear Urine pH 8.0 Ur Specific [place] 1.020 Urine Protein Negative Urine Glucose (UA) Negative Urine Ketones 1+ H Urine Blood Negative Urine Nitrite Negative Urine Bilirubin Negative Urine Urobilinogen 0.2 Ur Leukocyte Esterase Negative <Sofy Watson - Last Filed: 07/29/17 02:17> Medical Decision Making - Medical Decision Making 07/29/17 02:06 29-year-old female who states she is about 5 weeks and had some brown vaginal discharge. Beta-hCG is 4200. Ultrasound shows intrauterine sac of 5 weeks and 4 days but no pole. Impression threatened AB. Patient has an appointment this week with her [facility] on <Sofy Watson - Last Filed: 07/29/17 02:17> *DC/Admit/Observation/Transfer - Attestations Scribe Attestion: 07/28/17 22:32 Documentation prepared by Lynette Hathaway, acting as medical transcription supervisor for Sofy Watson MD. <Lynette Hathaway - Last Filed: 07/28/17 22:31> <oSfy Watson - Last Filed: 07/29/17 02:17> Diagnosis at time of Disposition: Threatened in early - Discharge Dispostion Disposition: HOME Condition at time of disposition: Stable - Referrals Referrals: Angus Adames [Primary Care Provider] - - Patient Instructions Printed Discharge Instructions: DI for Threatened Additional Instructions: follow up with your manager installation - Post Discharge Activity
[2017-07-28 23:59] LABS: BASOPHIL 0.4 % (0-2.0); MCH 31.7 pg (25.7-33.7); MCHC 32.9 g/dl (32.0-36.0); MEAN CELL VOLUME 96.3 fl (80-96); PLATELET COUNT 319 K/MM3 (134-434); RDW 12.9 % (11.6-15.6); WHITE BLOOD COUNT 12.4 K/mm3 (4.0-10.0)
== END 2017-07-28 23:24 | disposition home or self-care (01) ==
LOC: JER 15:53
DX: O26.891 Other specified pregnancy related conditions, first trimester (principal); O20.0 Threatened abortion; Z3A.01 Less than 8 weeks gestation of pregnancy
CPT/HCPCS: 36415; 76801-TC; 80053; 81003; 84702; 85025; 87086; 99283-25

== ENCOUNTER 2017-09-01 18:58 | Emergency (ER) | payer OTHER ==
[2017-09-01 19:06] VITALS: BP 121/78; PULSE 115; TEMP 98.7; BMI 28.3
--- NOTE | 2017-09-01 19:07 | PDOC ---
Rapid Medical Evaluation Time Seen by Provider: 09/01/17 19:04 Medical Evaluation: Allergies Allergy/AdvReac Type Severity Reaction Status Date / Time No Known Allergies Allergy Verified 09/01/17 19:04 09/01/17 19:04 I have performed a brief in-person evaluation of this patient. The patient presents with a chief complaint of: Abd pain w/ n/v x 1 week. No sig pmhx Pertinent physical exam findings:Tachy to 115 I have ordered the following: labs The patient will proceed to the ED for further evaluation. 09/01/17 19:07
[2017-09-01 19:33] LABS: BASO % 0.3 % (0-2.0); EOS % 2.7 % (0-4.5); HEMATOCRIT 42.1 % (32.4-45.2); LYMPH % 19.3 % (8-40); MCH 31.8 pg (25.7-33.7); MCHC 33.2 g/dl (32.0-36.0); MEAN CELL VOLUME 95.6 fl (80-96); MEAN PLT VOLUME 8.3 fl (7.5-11.1); MONO % 6.1 % (3.8-10.2); NEUT % 71.6 % (42.8-82.8); PLATELET COUNT 310 K/MM3 (134-434); RBC 4.41 M/mm3 (3.60-5.2); RDW 12.9 % (11.6-15.6); WHITE BLOOD COUNT 7.6 K/mm3 (4.0-10.0)
[2017-09-01 19:55] LABS: ALBUMIN 3.9 g/dl (3.4-5.0); ALK PHOS 107 U/L (45-117); ANION GAP 7 (8-16); BILIRUBIN,TOTAL 1.4 mg/dL (0.2-1.0); BLOOD UREA NITROGEN 10 mg/dL (7-18); CALCIUM 8.5 mg/dL (8.5-10.1); CHLORIDE 104 mmol/L (98-107); CO2 26 mmol/L (21-32); CREATININE 0.7 mg/dL (0.55-1.02); GLUCOSE,RANDOM 88 mg/dL (74-106); SGPT/ALT 30 U/L (12-78); SODIUM 137 mmol/L (136-145); TOT PROT 7.9 g/dl (6.4-8.2)
[2017-09-01 19:58] LABS: POTASSIUM 3.7 mmol/L (3.5-5.1); SGOT/AST 20 U/L (15-37)
--- NOTE | 2017-09-01 21:25 | PDOC ---
History of Present Illness - General History Source: Patient Exam Limitations: No Limitations - History of Present Illness Initial Comments: 09/01/17 22:57 Patient is a 22 year old female with a significant past medical history of Appendectomy, s/p AB (Surgical) x2 weeks, who presents to the ED with complaints of right sided abdominal pain that began this morning. Patient reports getting 2 weeks ago on August 15, while 10 weeks . She reports experiencing intermittent right sided abdominal pain since this morning suddenly while at home. Patient does not rate abdominal pain on a scale but states right sided abdominal pain is a stabbing pain that was intense enough to wake her from sleep. She reports experiencing vomiting and constipation, but is unsure if it is related to her abdominal pain. Patient's Beta levels were 20,000 at end of July, and is currently at 50 while in the ED. Patient states she had sexual intercourse 1 week following her procedure. Denies chest pain, SOB. Denies contact with sick individuals, out of state travel. Denies any other symptoms. Allergies: None Social history: Live with daughter. No smoking. No alcohol. No illicit drugs. Surgical history: Appendectomy PMD: None <Jamal Renteria - Last Filed: 09/01/17 22:56> <Sofy Watson - Last Filed: 09/01/17 23:56> - General Chief Complaint: Pain Stated Complaint: NAUSEA/VOMITING Time Seen by Provider: 09/01/17 19:04 Past History <Jamal Renteria - Last Filed: 09/01/17 22:56> - Past Medical History Asthma: Yes COPD: No - Surgical History Abdominal Surgery: Yes Appendectomy: Yes - Reproductive History (#): 0 Para: 0 Cervical CA: No Dysfunctional Uterine Bleeding: No Ectopic : No Endometrial CA: No Polycystic Ovaries: No Therapeutic (s) & number: Yes (x1) Tubal Ligation: No - Immunization History Immunization Up to Date: Yes - Suicide/Smoking/Psychosocial Hx Smoking Status: No Smoking History: Never smoked Have you smoked in the past 12 months: No Number of Cigarettes Smoked Daily: 0 Information on smoking cessation initiated: No Hx Alcohol Use: No Drug/Substance Use Hx: No Substance Use Type: None <Sofy Watson - Last Filed: 09/01/17 23:56> - Past Medical History Allergies/Adverse Reactions: Allergies Allergy/AdvReac Type Severity Reaction Status Date / Time No Known Allergies Allergy Verified 09/01/17 19:04 Home Medications: Ambulatory Orders Ranitidine HCl [Zantac] 150 mg PO DAILY PRN #14 tablet 09/01/17 Abd/GI Specific PMHX - Complaint Specific PMHX Colitis: No Gall Bladder Disease: No GERD: No Hepatitis: No Irritable Bowel Synd (IBS): No <Sofy Watson - Last Filed: 09/01/17 23:56> Review of Systems - Review of Systems Able to Perform ROS?: Yes Comments:: 09/01/17 22:57 CONSTITUTIONAL: Absent: fever, no chills, no fatigue EYES: Absent: visual changes ENT: Absent: ear pain, no sore throat CARDIOVASCULAR: Absent: chest pain, no palpitations RESPIRATORY: Absent: cough, no SOB GI: +Right sided abdominal pain. +Vomiting. +Constipation. Absent: no nausea, no diarrhea GENITOURINARY: Absent: dysuria, no frequency, no hematuria MUSCULOSKELETAL: Absent: back pain, no arthralgia, no myalgia SKIN: Absent: rash NEURO: Absent: headache All Other Systems: Reviewed and Negative <Jamal Renteria - Last Filed: 09/01/17 22:56> *Physical Exam - Vital Signs Last Vital Signs Temp Pulse Resp BP Pulse Ox 98.7 F 115 H 18 121/78 100 09/01/17 19:04 09/01/17 19:04 09/01/17 19:04 09/01/17 19:04 09/01/17 19:04 - Physical Exam Comments: 09/01/17 22:57 GENERAL: Well-appearing, well-nourished. No apparent distress. HEENT: Normocephalic, atraumatic. PERRL, EOM intact. CARDIOVASCULAR: Normal S1, S2. Regular rate and rhythm. PULMONARY: Clear to auscultation bilaterally. ABDOMEN: Soft, non-distended, non-tender. EXTREMITIES: Normal ROM in all four extremities. No gross deformities. SKIN: Warm, dry. No rash NEUROLOGICAL: No focal neurological deficits. <Jamal Renteria - Last Filed: 09/01/17 22:56> - Vital Signs Last Vital Signs Temp Pulse Resp BP Pulse Ox 98.7 F 115 H 18 121/78 100 09/01/17 19:04 09/01/17 19:04 09/01/17 19:04 09/01/17 19:04 09/01/17 19:04 <Sofy Watson - Last Filed: 09/01/17 23:56> ED Treatment Course - LABORATORY CBC & Chemistry Diagram: 09/01/17 19:17 09/01/17 19:17 - ADDITIONAL ORDERS Additional order review: Laboratory Results 09/01/17 09/01/17 09/01/17 22:00 19:17 19:17 Sodium Potassium Chloride Carbon Dioxide Anion Gap BUN Creatinine Creat Clearance w eGFR Random Glucose Calcium Total Bilirubin AST ALT Alkaline Phosphatase Total Protein Albumin Beta HCG, Quant 54.6 Serum , Qual Positive Urine Color Yellow Urine Appearance Clear Urine pH 5.0 D Ur Specific [place] 1.024 Urine Protein Negative Urine Glucose (UA) Negative Urine Ketones Negative Urine Blood 1+ H Urine Nitrite Negative Urine Bilirubin Negative Urine Urobilinogen 2.0 H 09/01/17 19:17 Sodium 137 Potassium 3.7 Chloride 104 Carbon Dioxide 26 Anion Gap 7 L BUN 10 D Creatinine 0.7 Creat Clearance w eGFR > 60 Random Glucose 88 Calcium 8.5 Total Bilirubin 1.4 H D AST 20 ALT 30 D Alkaline Phosphatase 107 Total Protein 7.9 Albumin 3.9 Beta HCG, Quant Serum , Qual Urine Color Urine Appearance Urine pH Ur Specific [place] Urine Protein Urine Glucose (UA) Urine Ketones Urine Blood Urine Nitrite Urine Bilirubin Urine Urobilinogen 09/01/17 19:17 RBC 4.41 MCV 95.6 MCHC 33.2 RDW 12.9 MPV 8.3 Neutrophils % 71.6 D Lymphocytes % 19.3 D Monocytes % 6.1 Eosinophils % 2.7 Basophils % 0.3 - Medications Given in the ED: ED Medications Discontinued Medications Generic Name Dose Route Start Last Admin Trade Name Freq PRN Reason Stop Dose Admin Al Hydroxide/Mg Hydroxide 30 ml 09/01/17 21:30 09/01/17 21:56 Mylanta Oral Suspension - PO 09/01/17 21:31 30 ml ONCE ONE Administration Ondansetron HCl 4 mg 09/01/17 21:29 09/01/17 21:56 Zofran Odt - SL 09/01/17 21:30 4 mg ONCE ONE Administration <Jamal Renteria - Last Filed: 09/01/17 22:56> - LABORATORY CBC & Chemistry Diagram: 09/01/17 19:17 09/01/17 19:17 - ADDITIONAL ORDERS Additional order review: Laboratory Results 09/01/17 09/01/17 09/01/17 19:17 19:17 19:17 Sodium 137 Potassium 3.7 Chloride 104 Carbon Dioxide 26 Anion Gap 7 L BUN 10 D Creatinine 0.7 Creat Clearance w eGFR > 60 Random Glucose 88 Calcium 8.5 Total Bilirubin 1.4 H D AST 20 ALT 30 D Alkaline Phosphatase 107 Total Protein 7.9 Albumin 3.9 Beta HCG, Quant 54.6 Serum , Qual Positive 09/01/17 19:17 RBC 4.41 MCV 95.6 MCHC 33.2 RDW 12.9 MPV 8.3 Neutrophils % 71.6 D Lymphocytes % 19.3 D Monocytes % 6.1 Eosinophils % 2.7 Basophils % 0.3 <Sofy Watson - Last Filed: 09/01/17 23:56> Medical Decision Making - Medical Decision Making 09/01/17 23:54 22-year-old female presents with epigastric pain, several episodes of nausea and vomiting and vaginal bleeding. History of present illness patient states she had a surgical on 2016. I reviewed her old chart and found that she had an ER visit on July 28, at which time she had a pelvic ultrasound that showed a single live IUP of 6 weeks. At that time her beta hCG was above 20,000. Her abdominal exam shows some epigastric tenderness but there is no rebound or guarding. She does not have any right lower quadrant tenderness. Urinalysis was negative. Beta-hCG was 50. I spoke with Dr. Nance and he looked at her abdominal ultrasound and he said it was essentially unremarkable with no evidence of acute cholecystitis Assessment, beta-hCG, the patient's labs are essentially noncontributory. Patient told she needs to have a repeat beta-hCG. Within the week to make sure that it does become 0. Prescription for PPI, sent to [facility] <Sofy Watson - Last Filed: 09/01/17 23:56> *DC/Admit/Observation/Transfer - Attestations Scribe Attestion: 09/01/17 22:57 Documentation prepared by Jamal Myra, acting as medical reimbursement specialist for Sofy Watson MD/DO. <Jamal Renteria - Last Filed: 09/01/17 22:56> <Sofy Watson - Last Filed: 09/01/17 23:56> Diagnosis at time of Disposition: Epigastric abdominal pain, Positive test - Discharge Dispostion Disposition: HOME Condition at time of disposition: Stable - Prescriptions Prescriptions: Ranitidine HCl [Zantac] 150 mg PO DAILY PRN #14 tablet PRN Reason: Nausea And/Or Vomiting - Patient Instructions Additional Instructions: Please avoid fatty,fried foods You still have a positive test . You need to have it repeated in 1 week to make sure it is decreasing Return for any worsening symptoms
[2017-09-01] MEDS ORDERED: ONDANSETRON *ODT* 4 MG TABLET SL ONE (21:29)
[2017-09-01] MEDS ORDERED: MAG HYDROX/AL HYDROX/SIMETH 30 ML UNIT-DOSE CUP PO ONE (21:30)
[2017-09-01] MEDS ORDERED: ONDANSETRON *ODT* 4 MG TABLET ONE (21:42)
[2017-09-01] MEDS ORDERED: MAG HYDROX/AL HYDROX/SIMETH 30 ML UNIT-DOSE CUP ONE (21:43)
[2017-09-01 22:32] LABS: URINE APPEARANCE CLEAR; URINE BILIRUBIN NEGATIVE (NEGATIVE); URINE BLOOD 1+ (NEGATIVE); URINE COLOR YELLOW; URINE GLUCOSE (UA) NEGATIVE (NEGATIVE); URINE KETONE NEGATIVE (NEGATIVE); URINE LEUK ESTERASE NEGATIVE (NEGATIVE); URINE NITRITE NEGATIVE (NEGATIVE); URINE PROTEIN NEGATIVE (NEGATIVE)
[2017-09-01 23:15] LABS: EPI CELLS RARE /HPF (FEW); URINE MUCUS MANY
== END 2017-09-02 | disposition home or self-care (01) ==
LOC: JER 18:58
DX: R10.13 Epigastric pain (principal); O03.6 Delayed or excessive hemorrhage following complete or unspecified spontaneous abortion
CPT/HCPCS: 36415; 76705-TC; 80053; 81003; 81015; 84702; 84703; 85025; 99282-25

== ENCOUNTER 2017-10-06 20:55 | Emergency (ER) | payer OTHER ==
--- NOTE | 2017-10-06 21:14 | PDOC ---
Rapid Medical Evaluation Time Seen by Provider: 10/06/17 21:11 Medical Evaluation: Allergies Allergy/AdvReac Type Severity Reaction Status Date / Time No Known Allergies Allergy Verified 09/01/17 19:04 10/06/17 21:11 22 year old female with asthma (overnight hospitalizations in childhood), genital herpes, with 4 days of abdominal pain, constipation, vomiting, nasal congestion, cough, and fever. Hx appendectomy, tonsillectomy. Lungs CTAB. -Tylenol -Rapid flu -To FT for further evaluation
[2017-10-06 21:16] VITALS: BP 107/70; PULSE 112; TEMP 101.5; BMI 34.0
--- NOTE | 2017-10-06 21:21 | PDOC ---
History of Present Illness - General Chief Complaint: Cold Symptoms Stated Complaint: CHILLS/FEVER Time Seen by Provider: 10/06/17 21:11 Past History - Past Medical History Allergies/Adverse Reactions: Allergies Allergy/AdvReac Type Severity Reaction Status Date / Time No Known Allergies Allergy Verified 10/06/17 21:13 Home Medications: Ambulatory Orders Ranitidine HCl [Zantac] 150 mg PO DAILY PRN #14 tablet 09/01/17 Acyclovir [Zovirax -] 400 mg PO TID #15 capsule 10/06/17 Albuterol Sulfate [Proventil HFA Inhaler -] 1 - 2 inh PO QID #1 inhaler Asthma: Yes COPD: No Other medical history: Herpes - Surgical History Abdominal Surgery: Yes Appendectomy: Yes - Reproductive History (#): 0 Para: 0 Cervical CA: No Dysfunctional Uterine Bleeding: No Ectopic : No Endometrial CA: No Polycystic Ovaries: No Therapeutic (s) & number: Yes (x1) Tubal Ligation: No - Immunization History Immunization Up to Date: Yes - Suicide/Smoking/Psychosocial Hx Smoking Status: No Smoking History: Never smoked Have you smoked in the past 12 months: No Number of Cigarettes Smoked Daily: 0 Information on smoking cessation initiated: No Hx Alcohol Use: No Drug/Substance Use Hx: No Substance Use Type: None *Physical Exam - Vital Signs Last Vital Signs Temp Pulse Resp BP Pulse Ox 101.5 F H 112 H 20 107/70 98 10/06/17 21:14 10/06/17 21:14 10/06/17 21:14 10/06/17 21:14 10/06/17 21:14 Medical Decision Making - Medical Decision Making 10/06/17 21:19 22-year-old female, history of asthma, genital herpes, presents with body aches including abdominal pain, some constipation, vomiting, URI symptoms and fever 4 days. No shortness of breath, chest pain or wheezing at this time. Patient requesting refill of her albuterol pump. Also requesting prescription for acyclovir given current genital outbreak 2 days, consistent with her herpes. Patient well-appearing, with low-grade fever and unremarkable exam otherwise. Motrin givem, flu pending 10/06/17 21:37 10/06/17 22:12 Flu positive. Given duration of symptoms, no benefit in giving Tamiflu. Vitals improved with meds. DC with supportive treatment. Contact precautions given 10/06/17 22:14 *DC/Admit/Observation/Transfer Diagnosis at time of Disposition: Influenza, Medication refill - Discharge Dispostion Disposition: HOME Condition at time of disposition: Improved - Prescriptions Prescriptions: Acyclovir [Zovirax -] 400 mg PO TID #15 capsule Albuterol Sulfate [Proventil HFA Inhaler -] 1 - 2 inh PO QID #1 inhaler - Referrals Referrals: Angus Adames [Primary Care Provider] - - Patient Instructions Printed Discharge Instructions: Influenza Additional Instructions: You have the flu. Rest, drink plenty of fluids and take Motrin or Tylenol for pain and/or fever - Post Discharge Activity
[2017-10-06] MEDS ORDERED: IBUPROFEN 400 MG TABLET (FP) PO ONE ×2 (21:36→21:38)
== END 2017-10-06 22:22 | disposition home or self-care (01) ==
LOC: JERFT 20:55
DX: J09.X2 Influenza due to identified novel influenza A virus with other respiratory manifestations (principal); J45.909 Unspecified asthma, uncomplicated; Z76.0 Encounter for issue of repeat prescription; A60.04 Herpesviral vulvovaginitis
CPT/HCPCS: 87804; 99281-25

== ENCOUNTER 2018-01-14 15:03 | Emergency (ER) | payer OTHER ==
[2018-01-14 15:37] VITALS: TEMP 98.6; BMI 38.0
--- NOTE | 2018-01-14 15:44 | PDOC ---
Rapid Medical Evaluation Chief Complaint: Vaginal Bleeding Time Seen by Provider: 01/14/18 15:37 Medical Evaluation: Allergies Allergy/AdvReac Type Severity Reaction Status Date / Time No Known Allergies Allergy Verified 01/14/18 15:35 Vital Signs Temp Pulse Resp BP Pulse Ox 98.6 F 101 H 18 108/70 100 01/14/18 15:35 01/14/18 15:35 01/14/18 15:35 01/14/18 15:35 01/14/18 15:35 01/14/18 15:39 The patient presents with a chief complaint of: Vaginal bleeding for three days. Took pill and has been bleeding since. Also prescribed misopristol. Has not taken it. Going through 3-4 pads every 3 hours. Also with back pain/cramping I have performed a brief in-person evaluation of this patient; Pertinent physical exam findings: ambulatory, in no respiratory distress I have ordered the following: CBC, type and screen, beta, UA, UC, transvaginal us The patient will proceed to the ED for further evaluation.
[2018-01-14 16:41] LABS: BASO % 0.4 % (0-2.0); EOS % 1.3 % (0-4.5); HEMATOCRIT 41.3 % (32.4-45.2); HEMOGLOBIN 13.5 GM/dL (10.7-15.3); LYMPH % 34.5 % (8-40); MCH 31.4 pg (25.7-33.7); MCHC 32.7 g/dl (32.0-36.0); MEAN CELL VOLUME 95.9 fl (80-96); MEAN PLT VOLUME 8.3 fl (7.5-11.1); MONO % 8.9 % (3.8-10.2); NEUT % 54.9 % (42.8-82.8); PLATELET COUNT 272 K/MM3 (134-434); RBC 4.31 M/mm3 (3.60-5.2); RDW 13.3 % (11.6-15.6); WHITE BLOOD COUNT 9.7 K/mm3 (4.0-10.0)
--- NOTE | 2018-01-14 17:03 | PDOC ---
Attending Attestation - HPI HPI: 01/14/18 18:28 This is a 22 YOF who is (two prior D&C's) and who took misoprostol from [facility] 5 days ago to terminate her [id number] . She presents with heavy bright red vaginal bleeding with clots and some white material for the past 3 day. She reports associated lower abdominal cramping radiating to her lower back. She has been taking Motrin for the cramping with minimal relief. She denies any LOC, palpitations, chest pain, dysuria, strange smells to the urine, leg swelling, or other symptoms. - Physicial Exam PE: 01/14/18 18:28 GENERAL: Awake, alert, and fully oriented, in no acute distress HEAD: No signs of trauma EYES: PERRLA, EOMI, sclera anicteric, conjunctiva clear ENT: Auricles normal inspection, hearing grossly normal, nares patent, oropharynx clear without exudates. Moist mucosa NECK: Normal ROM, supple, no lymphadenopathy, JVD, or masses LUNGS: Breath sounds equal, clear to auscultation bilaterally. No wheezes, and no crackles HEART: (+) Tachycardic with regular rhythm, normal S1 and S2, no murmurs, rubs or gallops ABDOMEN: (+) Suprapubic tenderness. Soft, normoactive bowel sounds. No guarding , no rebound. No masses EXTREMITIES: Normal range of motion, no edema. No clubbing or cyanosis. No cords, erythema, or tenderness NEUROLOGICAL: Cranial nerves II through XII grossly intact. Normal speech, normal gait SKIN: Warm, Dry, normal turgor, no rashes or lesions noted. - Medical Decision Making 01/14/18 18:28 Documentation prepared by Bryson Scanlon, acting as biomedical electronics technician for Hannah Garvin DO. <Bryson Scanlon - Last Filed: 01/14/18 18:32> - Resident Resident Name: Liset Owens - ED Attending Attestation I have performed the following: I have examined & evaluated the patient, The case was reviewed & discussed with the resident, I agree w/resident's findings & plan, Exceptions are as noted - Medical Decision Making 01/14/18 17:03 I, Dr. Hannah Garvin DO, attest that this document has been prepared under my direction and personally reviewed by me in its entirety. I further attest, that it accurately reflects all work, treatment, procedures and medical decision -making performed by me. 01/14/18 22:09 h/h stable resident discussed the case with dr. so who recommended doxy and [facility]. 01/14/18 22:09 a/p: 22yo female with medical ab 5 days ago with vaginal bleeding -concern given 7 pads per day of bleeding, passing clots -will check labs, type and screen -will obtain ultrasound will monitor and reassess 01/14/18 22:10 hemoglobin stable 01/14/18 22:11 stable for d/c to home <Hannah Garvin - Last Filed: 01/14/18 22:11> Heart Score/ECG Review - ECG Impressions Comment:: 01/14/18 18:32 Sinus 69 normal axis normal interval no st or t changes <Bryson Scanlon - Last Filed: 01/14/18 18:32>
[2018-01-14 17:21] LABS: URINE APPEARANCE SLCLOUDY; URINE BILIRUBIN NEGATIVE (<2.0 mg/dL); URINE COLOR YELLOW; URINE GLUCOSE (UA) NEGATIVE (NEGATIVE); URINE KETONE NEGATIVE (NEGATIVE); URINE LEUK ESTERASE NEGATIVE (NEGATIVE); URINE NITRITE NEGATIVE (NEGATIVE); URINE PROTEIN NEGATIVE (NEGATIVE)
[2018-01-14 17:27] LABS: CALCIUM OXALATE CRYSTALS RARE /hpf (NONE SEEN); EPI CELLS RARE /HPF (FEW); URINE MUCUS RARE
--- NOTE | 2018-01-14 17:58 | PDOC ---
History of Present Illness - General Chief Complaint: Vaginal Bleeding Stated Complaint: VAGINAL BLEEDING, LIGHTHEADED Time Seen by Provider: 01/14/18 15:37 History Source: Patient Exam Limitations: No Limitations - History of Present Illness Initial Comments: This is a 22 YOF who is (two prior D&C's) and who took misoprostol from [facility] 5 days ago to terminate her [id number] . She presents with heavy bright red vaginal bleeding with clots and some white material for the past 3 days, and soaking 5 heavy-duty feminine pads over 30 minutes [employer]FU[employer] to the ED. She additionally notes moderate lower abdominal cramping radiating to her bilateral lower back, mild headache, lightheadedness, fatigue, and mild shortness of breath. She has never had these symptoms before. She has been taking Motrin for the cramping with minimal relief. She denies any LOC, palpitations, chest pain, dysuria, strange smells to the urine, leg swelling, or other symptoms. Past History - Past Medical History Allergies/Adverse Reactions: Allergies Allergy/AdvReac Type Severity Reaction Status Date / Time No Known Allergies Allergy Verified 01/14/18 15:35 Home Medications: Ambulatory Orders NK [No Known Home Medication] 01/14/18 Asthma: Yes COPD: No - Surgical History Abdominal Surgery: Yes Appendectomy: Yes - Reproductive History (#): 0 Para: 0 Cervical CA: No Dysfunctional Uterine Bleeding: No Ectopic : No Endometrial CA: No Polycystic Ovaries: No Therapeutic (s) & number: Yes (x1) Tubal Ligation: No - Immunization History Immunization Up to Date: Yes - Suicide/Smoking/Psychosocial Hx Smoking Status: No Smoking History: Never smoked Have you smoked in the past 12 months: No Number of Cigarettes Smoked Daily: 4 Information on smoking cessation initiated: No Hx Alcohol Use: No Drug/Substance Use Hx: No Substance Use Type: None Abd/GI Specific PMHX - Complaint Specific PMHX Colitis: No Gall Bladder Disease: No GERD: No Hepatitis: No Irritable Bowel Synd (IBS): No Review of Systems - Review of Systems Able to Perform ROS?: Yes Constitutional: Yes: Weakness, Other (fatigue). No: Chills, Fever, Unexplained wgt Loss HEENTM: No: Nose Congestion, Throat Pain Respiratory: Yes: Shortness of Breath (mild). No: Cough Cardiac (ROS): Yes: Lightheadedness. No: Chest Pain, Edema, Palpitations ABD/GI: Yes: Other (lower abdominal pain). No: Constipated, Diarrhea, Nausea, Vomiting : Yes: Other (vaginal bleeding). No: Burning, Dysuria Musculoskeletal: Yes: Back Pain. No: Neck Pain Integumentary: No: Bruising, Rash Neurological: Yes: Headache. No: Numbness, Tingling, Weakness Endocrine: No: Unexplained Weight Gain, Unexplained Weight Loss *Physical Exam - Vital Signs Last Vital Signs Temp Pulse Resp BP Pulse Ox 98.6 F 101 H 18 108/70 100 01/14/18 15:35 01/14/18 15:35 01/14/18 15:35 01/14/18 15:35 01/14/18 15:35 - Physical Exam General Appearance: Yes: Nourished, Appropriately Dressed, Obese, Other (alert, oriented, answering questions appropriately, not particularly pale appearing, a bit anxious). No: Apparent Distress HEENT: positive: EOMI, KIA, Normal Voice, Hearing Grossly Normal. negative: Pale Conjunctivae, Scleral Icterus (R), Scleral Icterus (L), Nasal Congestion Neck: positive: Trachea midline, Supple. negative: Tender, Rigid Respiratory/Chest: positive: Lungs Clear, Normal Breath Sounds. negative: Respiratory Distress, Crackles, Rhonchi, Stridor, Wheezing Cardiovascular: positive: Regular Rhythm, S1, S2, Tachycardia (mild). negative : Edema, JVD, Murmur Gastrointestinal/Abdominal: positive: Normal Bowel Sounds, Tender (minimal suprapubic ttp), Soft. negative: Organomegaly, Pulsatile Mass, Guarding Musculoskeletal: positive: Normal Inspection. negative: CVA Tenderness, Decreased Range of Motion, Vertebral Tenderness Extremity: positive: Normal Capillary Refill, Normal Inspection, Normal Range of Motion. negative: Tender, Cyanosis Integumentary: positive: Normal Color, Dry, Warm. 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 negative: EOM Palsy, Facial Droop , Numbness, Sensory Deficit, Confused, Disoriented ED Treatment Course - LABORATORY CBC & Chemistry Diagram: 01/14/18 16:27 - ADDITIONAL ORDERS Additional order review: Laboratory Results 01/14/18 01/14/18 16:27 16:27 Urine Color Yellow Urine Appearance Slcloudy Urine pH 5.0 Ur Specific [place] 1.023 Urine Protein Negative Urine Glucose (UA) Negative Urine Ketones Negative Urine Blood 3+ H Urine Nitrite Negative Urine Bilirubin Negative Urine Urobilinogen 2.0 H Ur Leukocyte Esterase Negative Urine WBC (Auto) None Urine RBC (Auto) 892 Ur Epithelial Cells Rare Calcium Oxalate Crystal Rare Urine Mucus Rare Blood Type O POSITIVE Antibody Screen Negative 01/14/18 16:27 RBC 4.31 MCV 95.9 MCHC 32.7 RDW 13.3 MPV 8.3 Neutrophils % 54.9 D Lymphocytes % 34.5 D Monocytes % 8.9 Eosinophils % 1.3 Basophils % 0.4 - RADIOLOGY Radiology Studies Ordered: Category Date Time Status CHEST PA & LAT [RAD] Stat Radiology 01/14/18 17:46 Ordered Medical Decision Making - Medical Decision Making Adult female p/w vaginal bleeding and lower abdominal pain 5 days after taking misoprostol to terminate a 5 week . Initial Vital Signs Temp Pulse Resp BP Pulse Ox 98.6 F 101 H 18 108/70 100 01/14/18 15:35 01/14/18 15:35 01/14/18 15:35 01/14/18 15:35 01/14/18 15:35 Exam: well appearing, no particularly pale, mild suprapubic ttp, on pelvic os is closed, small amount of blood in vaginal vault, no discharge. DDX IBNLT: normal expectant management, threatened/inevitable/incomplete/ complete/septic , ectopic, PID/TOA/cervicitis, endometritis, ruptured ovarian cyst, ovarian torsion, malignancy, menorrhagia, endometriosis, rectal bleed, hematuria, constipation, fibroids, etc. Ordered is CBCD CMP Coags T&S UA UCx hCG Quant transvaginal US. Laboratory Tests 01/14/18 01/14/18 01/14/18 16:27 16:27 16:27 WBC 9.7 RBC 4.31 Hgb 13.5 Hct 41.3 MCV 95.9 MCH 31.4 MCHC 32.7 RDW 13.3 Plt Count 272 MPV 8.3 Neutrophils % 54.9 D Lymphocytes % 34.5 D Monocytes % 8.9 Eosinophils % 1.3 Basophils % 0.4 Beta HCG, Quant 2889.8 Urine Color Yellow Urine Appearance Slcloudy Urine pH 5.0 Ur Specific [place] 1.023 Urine Protein Negative Urine Glucose (UA) Negative Urine Ketones Negative Urine Blood 3+ H Urine Nitrite Negative Urine Bilirubin Negative Urine Urobilinogen 2.0 H Ur Leukocyte Esterase Negative Urine WBC (Auto) None Urine RBC (Auto) 892 Ur Epithelial Cells Rare Calcium Oxalate Crystal Rare Urine Mucus Rare Blood Type Antibody Screen 01/14/18 16:27 WBC RBC Hgb Hct MCV MCH MCHC RDW Plt Count MPV Neutrophils % Lymphocytes % Monocytes % Eosinophils % Basophils % Beta HCG, Quant Urine Color Urine Appearance Urine pH Ur Specific [place] Urine Protein Urine Glucose (UA) Urine Ketones Urine Blood Urine Nitrite Urine Bilirubin Urine Urobilinogen Ur Leukocyte Esterase Urine WBC (Auto) Urine RBC (Auto) Ur Epithelial Cells Calcium Oxalate Crystal Urine Mucus Blood Type O POSITIVE Antibody Screen Negative Blood type is: O+ and patient does not need Rhogam. Patient's care is endorsed to Dr. Jain at the end of my shift. *DC/Admit/Observation/Transfer - Referrals Referrals: Angus Adames [Primary Care Provider] - - Patient Instructions Additional Instructions: You were seen in the ER for vaginal bleeding and cramping after taking misoprostol. We did an exam, laboratory work on your blood and urine, and an ultrasound. After our assessment, we do not think you are having a medical emergency at this time, and you are safe to go home. Please take Tylenol for any pain. Follow up with your patient transport orderly (at [facility]) and regular PCP doctor in the next 1-3 days. Call their clinic [facility], tell them you were seen in the ER, and tell them you need an appointment. Please come back to the ER at any time (24 hours a day) for any new or worsening symptoms, like worsening pelvic pain, discharge, high fever, headache, seizure, fainting, increased blood loss, or other symptoms. If you are having severe or life threatening symptoms, or symptoms that make it unsafe to drive or have someone drive you, please call 911. - Post Discharge Activity
[2018-01-14] MEDS ORDERED: SODIUM CHLORIDE 0.9% 500 ML INFUS.BAG IV ONE (18:25)
[2018-01-14] MEDS ORDERED: ACETAMINOPHEN 1000 MG/100 ML VIAL (NON FORMULARY) IVPB ONE (19:13)
[2018-01-14] MEDS ORDERED: ONDANSETRON 4 MG/2 ML VIAL IVPUSH ONE (19:13)
[2018-01-14] MEDS ORDERED: ACETAMINOPHEN INJECTION 100 ML IVPB ONE (19:30)
[2018-01-14] MEDS ORDERED: ONDANSETRON 4 MG/2 ML VIAL ONE (19:30)
[2018-01-14 20:49] VITALS: BP 92/55; PULSE 75
[2018-01-14 20:54] LABS: BASO % 0.2 % (0-2.0); EOS % 1.3 % (0-4.5); HEMATOCRIT 38.6 % (32.4-45.2); HEMOGLOBIN 12.8 GM/dL (10.7-15.3); LYMPH % 35.2 % (8-40); MCH 31.6 pg (25.7-33.7); MCHC 33.1 g/dl (32.0-36.0); MEAN CELL VOLUME 95.3 fl (80-96); MEAN PLT VOLUME 7.9 fl (7.5-11.1); MONO % 7.1 % (3.8-10.2); NEUT % 56.2 % (42.8-82.8); PLATELET COUNT 258 K/MM3 (134-434); RBC 4.05 M/mm3 (3.60-5.2); RDW 12.9 % (11.6-15.6); WHITE BLOOD COUNT 9.4 K/mm3 (4.0-10.0)
[2018-01-14 21:10] LABS: INR 1.01 (0.82-1.09); PROTHROMBIN TIME (PATIENT) 11.4 SEC (9.7-13.0)
[2018-01-14] MEDS ORDERED: IBUPROFEN 600 MG TABLET (FP) PO ONE ×2 (21:13→22:06)
[2018-01-14] MEDS ORDERED: DOXYCYCLINE HYCLATE 100 MG CAPSULE PO ONE ×2 (22:01→22:06)
--- NOTE | 2018-01-14 22:08 | PDOC ---
*Physical Exam - Vital Signs Last Vital Signs Temp Pulse Resp BP Pulse Ox 98.6 F 75 20 92/55 98 01/14/18 15:35 01/14/18 20:35 01/14/18 20:35 01/14/18 20:35 01/14/18 20:35 - Physical Exam Comments: 01/14/18 22:02 GENERAL: Awake, alert, and fully oriented, in no acute distress HEAD: No signs of trauma, normocephalic, atraumatic EYES: PERRLA, EOMI, sclera anicteric, conjunctiva clear ENT: Auricles normal inspection, hearing grossly normal, nares patent, oropharynx clear without exudates. Moist mucosa NECK: Normal ROM, supple, no lymphadenopathy, JVD, or masses LUNGS: No distress, speaks full sentences, clear to auscultation bilaterally HEART: Regular rate and rhythm, normal S1 and S2, no murmurs, rubs or gallops, peripheral pulses normal and equal bilaterally. NEUROLOGICAL: Cranial nerves II through XII grossly intact. Normal speech, normal gait, no focal sensorimotor deficits ED Treatment Course - LABORATORY CBC & Chemistry Diagram: 01/14/18 20:44 - ADDITIONAL ORDERS Additional order review: Laboratory Results 01/14/18 01/14/18 01/14/18 16:27 16:27 16:27 PT with INR INR Beta HCG, Quant 2889.8 Urine Color Yellow Urine Appearance Slcloudy Urine pH 5.0 Ur Specific [place] 1.023 Urine Protein Negative Urine Glucose (UA) Negative Urine Ketones Negative Urine Blood 3+ H Urine Nitrite Negative Urine Bilirubin Negative Urine Urobilinogen 2.0 H Ur Leukocyte Esterase Negative Urine WBC (Auto) None Urine RBC (Auto) 892 Ur Epithelial Cells Rare Calcium Oxalate Crystal Rare Urine Mucus Rare Blood Type O POSITIVE Antibody Screen Negative 01/14/18 16:27 PT with INR 11.40 INR 1.01 Beta HCG, Quant Urine Color Urine Appearance Urine pH Ur Specific [place] Urine Protein Urine Glucose (UA) Urine Ketones Urine Blood Urine Nitrite Urine Bilirubin Urine Urobilinogen Ur Leukocyte Esterase Urine WBC (Auto) Urine RBC (Auto) Ur Epithelial Cells Calcium Oxalate Crystal Urine Mucus Blood Type Antibody Screen 01/14/18 01/14/18 20:44 16:27 RBC 4.05 4.31 MCV 95.3 95.9 MCHC 33.1 32.7 RDW 12.9 13.3 MPV 7.9 8.3 Neutrophils % 56.2 54.9 D Lymphocytes % 35.2 34.5 D Monocytes % 7.1 8.9 Eosinophils % 1.3 1.3 Basophils % 0.2 0.4 - Medications Given in the ED: ED Medications Discontinued Medications Generic Name Dose Route Start Last Admin Trade Name Dyllan PRN Reason Stop Dose Admin Acetaminophen 1,000 mg 01/14/18 19:13 01/14/18 20:24 Ofirmev Injection - IVPB 01/14/18 19:14 1,000 mg ONCE ONE Administration Ondansetron HCl 4 mg 01/14/18 19:13 01/14/18 20:24 Zofran Injection IVPUSH 01/14/18 19:14 4 mg NOW ONE Administration Sodium Chloride 1,000 ml 01/14/18 18:25 01/14/18 18:10 Normal Saline - IV 01/14/18 18:26 1,000 ml ONCE ONE Administration Medical Decision Making - Medical Decision Making 01/14/18 22:[address] Garrison. Patient is 22F who is complaining of vaginal bleeding. Initially tachycardic, vital signs now normal and stable. Pending US. Ultrasound shows concern for retained product of conception. Dr Rae consulted, states that patient should go to [facility] tomorrow and take doxycycline in the meantime. *DC/Admit/Observation/Transfer Diagnosis at time of Disposition: Vaginal bleeding - Discharge Dispostion Disposition: HOME Condition at time of disposition: Good Decision to Admit order: No - Referrals Referrals: Angus Adames [Primary Care Provider] - - Patient Instructions Additional Instructions: Please follow up with [facility] tomorrow regarding the vaginal bleeding after taking misoprostol. Please take your antibiotics that were prescribed to you. You were seen in the ER for vaginal bleeding and cramping after taking misoprostol. We did an exam, laboratory work on your blood and urine, and an ultrasound. After our assessment, we do not think you are having a medical emergency at this time, and you are safe to go home. Please take Tylenol for any pain. Follow up with your rn endocrinology (at [facility]) and regular PCP doctor in the next 1-3 days. Call their clinic [facility], tell them you were seen in the ER, and tell them you need an appointment. Please come back to the ER at any time (24 hours a day) for any new or worsening symptoms, like worsening pelvic pain, discharge, high fever, headache, seizure, fainting, increased blood loss, or other symptoms. If you are having severe or life threatening symptoms, or symptoms that make it unsafe to drive or have someone drive you, please call 911. - Post Discharge Activity
--- NOTE | 2018-01-15 11:17 | EKG ---
Test Reason : Blood Pressure : / mmHG Vent. Rate : 069 BPM Atrial Rate : 069 BPM P-R Int : 136 ms QRS Dur : 084 ms QT Int : 386 ms P-R-T Axes : 063 082 048 degrees QTc Int : 413 ms NORMAL SINUS RHYTHM NORMAL ECG WHEN COMPARED WITH ECG OF 09-APR-2016 10:33, NO SIGNIFICANT CHANGE WAS FOUND Confirmed by CHLOE SOTO MD ([id number]) on 01/15/2018 11:16:30 AM Referred By: Confirmed By:CHLOE SOTO MD
== END 2018-01-14 22:20 | disposition home or self-care (01) ==
LOC: JER 15:03
PROC: 3E033GC Introduction of Other Therapeutic Substance into Peripheral Vein, Percutaneous Approach (ICD-10-PCS; principal; 2018-01-14)
PROC: 3E033NZ Introduction of Analgesics, Hypnotics, Sedatives into Peripheral Vein, Percutaneous Approach (ICD-10-PCS; 2018-01-14)
DX: O03.6 Delayed or excessive hemorrhage following complete or unspecified spontaneous abortion (principal)
CPT/HCPCS: 36415; 71046-TC-FY; 76817-TC; 81003; 81015; 84702; 85025; 85610; 86850; 86900; 86901; 87086; 93005; 93010; 99285-25; J0131

== ENCOUNTER 2018-06-06 23:54 | Emergency (ER) | payer OTHER ==
[2018-06-06 23:59] VITALS: BMI 35.9
[2018-06-07] MEDS ORDERED: ACETAMINOPHEN 500 MG TABLET (FP) PO ONE (03:18)
[2018-06-07] MEDS ORDERED: ACETAMINOPHEN 325 MG TABLET (FP) ONE (03:20)
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
[2018-06-07 05:58] VITALS: BP 127/76; PULSE 89; TEMP 97.6
== END 2018-06-07 06:02 | disposition home or self-care (01) ==
LOC: JER 23:54
DX: S00.83XA Contusion of other part of head, initial encounter (principal); S40.012A Contusion of left shoulder, initial encounter; S60.221A Contusion of right hand, initial encounter; Y04.2XXA Assault by strike against or bumped into by another person, initial encounter; Y93.89 Activity, other specified; Y92.89 Other specified places as the place of occurrence of the external cause; Y99.8 Other external cause status; Y07.9 Unspecified perpetrator of maltreatment and neglect
CPT/HCPCS: 70450-TC; 73030-TC-LT-FY; 73130-TC-RT-FY; 84703; 99282-25

== ENCOUNTER 2018-07-28 21:12 | Emergency (ER) | payer OTHER ==
[2018-07-28 21:29] VITALS: BP 112/65; PULSE 81; TEMP 98.6; BMI 39.6
--- NOTE | 2018-07-28 21:29 | PDOC ---
Rapid Medical Evaluation Time Seen by Provider: 07/28/18 21:27 Medical Evaluation: Allergies Allergy/AdvReac Type Severity Reaction Status Date / Time No Known Allergies Allergy Verified 06/07/18 02:10 07/28/18 21:28 I have performed a brief in-person evaluation of this patient. The patient presents with a chief complaint of: with vaginal bleeding- LMP 06/21 Pertinent physical exam findings: abd SNTND. I have ordered the following: labs, urine The patient will proceed to the ED for further evaluation. Discharge Disposition - Diagnosis Vaginal bleeding before 22 weeks gestation - Referrals - Patient Instructions - Post Discharge Activity
[2018-07-28] MEDS ORDERED: ACETAMINOPHEN 500 MG TABLET (FP) PO ONE (21:30)
[2018-07-28 22:19] LABS: HCG,QUALITATIVE URINE Positive
[2018-07-28 22:20] LABS: BASO % 0.3 % (0-2.0); HEMATOCRIT 37.7 % (32.4-45.2); HEMOGLOBIN 13.2 GM/dL (10.7-15.3); LYMPH % 27.4 % (8-40); MCH 32.8 pg (25.7-33.7); MCHC 34.9 g/dl (32.0-36.0); MEAN PLT VOLUME 7.8 fl (7.5-11.1); MONO % 7.5 % (3.8-10.2); NEUT % 62.8 % (42.8-82.8); PLATELET COUNT 312 K/MM3 (134-434); RBC 4.01 M/mm3 (3.60-5.2); RDW 13.1 % (11.6-15.6)
[2018-07-28 22:27] LABS: URINE APPEARANCE CLEAR; URINE BILIRUBIN NEGATIVE (<2.0 mg/dL); URINE COLOR YELLOW; URINE GLUCOSE (UA) NEGATIVE (NEGATIVE); URINE KETONE NEGATIVE (NEGATIVE); URINE LEUK ESTERASE NEGATIVE (NEGATIVE); URINE NITRITE NEGATIVE (NEGATIVE); URINE PROTEIN NEGATIVE (NEGATIVE)
[2018-07-28 22:38] LABS: ANION GAP 8 MMOL/L (8-16); BLOOD UREA NITROGEN 12 mg/dL (7-18); CALCIUM 8.4 mg/dL (8.5-10.1); CHLORIDE 106 mmol/L (98-107); CO2 24 mmol/L (21-32); CREATININE 0.7 mg/dL (0.55-1.3); GLUCOSE,RANDOM 83 mg/dL (74-106); POTASSIUM 3.7 mmol/L (3.5-5.1); SODIUM 138 mmol/L (136-145)
--- NOTE | 2018-07-28 22:43 | PDOC ---
Attending Attestation - HPI HPI: 07/29/18 00:08 The patient is a 22-year-old female, , with past medical history significant for asthma and Herpes (oral and vaginal) presents to the emergency department with vaginal bleeding. The patient reports since yesterday shes been having vaginal spotting, with the passing of a clot this morning. The patient reports the blood was brown in quality yesterday and earlier today she was passing bright red blood reports associated symptoms of RLQ pain. The patient states she wasnt aware that she was till today. Denies fever, chills, chest pain, shortness of breath, dysuria, frequency or urgency to urinate, changes in bowel habits. LMP: June 18-. Allergies: NKA Social history: Daily use of tobacco. No alcohol use reported. No recreational drug use reported. Surgical history: Two prior D&Cs PCP: None reported BEHAVIORAL PEDIATRICIAN: Liss johnson. - Physicial Exam PE: 07/29/18 00:09 GENERAL: Awake, alert, and fully oriented, in no acute distress HEAD: No signs of trauma EYES: PERRLA, EOMI, sclera anicteric, conjunctiva clear ENT: Auricles normal inspection, hearing grossly normal, nares patent, oropharynx clear without exudates. Moist mucosa NECK: Normal ROM, supple, no lymphadenopathy, JVD, or masses LUNGS: Breath sounds equal, clear to auscultation bilaterally. No wheezes, and no crackles HEART: Regular rate and rhythm, normal S1 and S2, no murmurs, rubs or gallops ABDOMEN: Soft, nontender, normoactive bowel sounds. No guarding, no rebound. No masses EXTREMITIES: Normal range of motion, no edema. No clubbing or cyanosis. No cords, erythema, or tenderness NEUROLOGICAL: Cranial nerves II through XII grossly intact. Normal speech, normal gait SKIN: Warm, Dry, normal turgor, no rashes or lesions noted. - Medical Decision Making 07/29/18 00:09 Documentation prepared by Shaneka Mclain, acting as medical facilities section director for Hannah Garvin DO. <Shaneka Mclain - Last Filed: 07/29/18 00:08> - Resident Resident Name: Irene Venegas - ED Attending Attestation I have performed the following: I have examined & evaluated the patient, The case was reviewed & discussed with the resident, I agree w/resident's findings & plan, Exceptions are as noted - Medical Decision Making 07/28/18 22:43 I, Dr. Hannah Garvin, DO, attest that this document has been prepared under my direction and personally reviewed by me in its entirety. I further attest, that it accurately reflects all work, treatment, procedures and medical decision -making performed by me. 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 [facility] 07/29/18 01:18 0+ on type and screen beat 600 pending ultrasound discussed need for vitamins as outpt 07/29/18 01:20 no IUP seen - thickened endometrium - early vs threatened ab stable for dc to home and repeat beta in 48 hours <Hannah Garvin - Last Filed: 07/29/18 01:22> *DC/Admit/Observation/Transfer - Discharge Dispostion Decision to Admit order: No <Hannah Garvin - Last Filed: 07/29/18 01:22> Diagnosis at time of Disposition: Vaginal bleeding before 22 weeks gestation, Threatened - Discharge Dispostion Disposition: HOME Condition at time of disposition: Stable - Referrals Referrals: Everardo Rae MD [Staff Physician] - - Patient Instructions Printed Discharge Instructions: DI for Threatened , DI for Abdominal Pain -- Early Additional Instructions: Please start taking vitamins. Please return to the ED in 2 days for a repeat Beta HCG. Please schedule a follow up appointment with your AUTOMOBILE SEAT COVER INSTALLER. Please do not drink alcohol or smoke.
--- NOTE | 2018-07-28 23:17 | PDOC ---
History of Present Illness - General Chief Complaint: Vaginal Bleeding Stated Complaint: Vaginal Bleeding Time Seen by Provider: 07/28/18 21:27 - History of Present Illness Initial Comments: 07/28/18 23:11 The patient is a 22 year old female with PMH of herpes and in 2016 that presented to ED today complaining of vaginal bleeding that started yesterday and positive home test. She states that her bleeding was light brown yesterday and bright color today. It is associated with abdominal pain located in RLQ. It is sharp, 6/10, constant, no aggravating/alleviating factors. She had LM P 06/18/18. Denies itching, fever, chills. She has been also treated with Cephalexin by her OBGYN for strep infection and is currently finishing 10 day course. Timing/Duration: 24 hours Severity: moderate Past History - Past Medical History Allergies/Adverse Reactions: Allergies Allergy/AdvReac Type Severity Reaction Status Date / Time No Known Allergies Allergy Verified 07/28/18 21:29 Home Medications: Ambulatory Orders Acyclovir [Zovirax -] 600 mg PO DAILY 07/28/18 Cephalexin [Keflex] 250 mg PO Q6H 07/28/18 Asthma: Yes COPD: No - Surgical History Abdominal Surgery: Yes Appendectomy: Yes - Reproductive History (#): 0 Para: 0 Cervical CA: No Dysfunctional Uterine Bleeding: No Ectopic : No Endometrial CA: No Polycystic Ovaries: No Therapeutic (s) & number: Yes (x1) Tubal Ligation: No - Immunization History Immunization Up to Date: Yes - Suicide/Smoking/Psychosocial Hx Smoking Status: No Smoking History: Never smoked Have you smoked in the past 12 months: No Number of Cigarettes Smoked Daily: 4 Hx Alcohol Use: No Drug/Substance Use Hx: No Substance Use Type: None Review of Systems - Review of Systems Able to Perform ROS?: Yes Constitutional: No: Symptoms Reported Respiratory: No: Symptoms reported Cardiac (ROS): No: Symptoms Reported ABD/GI: Yes: See HPI, Abdominal cramping : Yes: Other (bleeding) *Physical Exam - Vital Signs Last Vital Signs Temp Pulse Resp BP Pulse Ox 98.6 F 81 18 112/65 100 07/28/18 21:27 07/28/18 21:27 07/28/18 21:27 07/28/18 21:27 07/28/18 21:27 - Physical Exam General Appearance: Yes: Nourished, Appropriately Dressed Female Pelvic Exam: positive: other (Pelvic exam: no skin rash, normal mucosa, no visible bleeding/discharge, mild tenderness with bimanual exam.). negative: discharge Gastrointestinal/Abdominal: positive: Normal Bowel Sounds, Tender (RLQ), Soft Moderate Sedation - Procedure Monitoring Vital Signs: Procedure Monitoring Vital Signs Temperature 98.6 F 07/28/18 21:27 Pulse Rate 81 07/28/18 21:27 Respiratory Rate 18 07/28/18 21:27 Blood Pressure 112/65 07/28/18 21:27 O2 Sat by Pulse Oximetry (%) 100 07/28/18 21:27 ED Treatment Course - LABORATORY CBC & Chemistry Diagram: 07/28/18 22:08 07/28/18 22:08 - ADDITIONAL ORDERS Additional order review: Laboratory Results 07/28/18 07/28/18 07/28/18 22:08 22:08 22:08 Sodium 138 Potassium 3.7 Chloride 106 Carbon Dioxide 24 Anion Gap 8 BUN 12 Creatinine 0.7 Creat Clearance w eGFR > 60 Random Glucose 83 Calcium 8.4 L Beta HCG, Quant 615.9 Urine Color Yellow Urine Appearance Clear Urine pH 6.0 Ur Specific [place] 1.025 Urine Protein Negative Urine Glucose (UA) Negative Urine Ketones Negative Urine Blood Negative Urine Nitrite Negative Urine Bilirubin Negative Urine Urobilinogen 2.0 H Ur Leukocyte Esterase Negative Urine HCG, Qual Positive 07/28/18 22:08 RBC 4.01 MCV 94.0 MCHC 34.9 RDW 13.1 MPV 7.8 Neutrophils % 62.8 Lymphocytes % 27.4 D Monocytes % 7.5 Eosinophils % 2.0 Basophils % 0.3 - Medications Given in the ED: ED Medications Discontinued Medications Generic Name Dose Route Start Last Admin Trade Name Freq PRN Reason Stop Dose Admin Acetaminophen 975 mg 07/28/18 21:30 07/28/18 21:54 Tylenol - PO 07/28/18 21:31 975 mg ONCE ONE Administration Medical Decision Making - Medical Decision Making 07/28/18 23:20 Labs notable for WBC 12, neg UA pos , , nl CMP. US ordered, 07/29/18 02:27 US no IUP, early vs threatened ab DC home with recommendation to f/u OBGYN and come back to ED to repeat beta HCG in 48 hrs. *DC/Admit/Observation/Transfer Diagnosis at time of Disposition: Vaginal bleeding before 22 weeks gestation, Threatened - Discharge Dispostion Disposition: HOME Condition at time of disposition: Stable - Referrals Referrals: Everardo Rae MD [Staff Physician] - - Patient Instructions Printed Discharge Instructions: DI for Threatened , DI for Abdominal Pain -- Early Additional Instructions: Please start taking vitamins. Please return to the ED in 2 days for a repeat Beta HCG. Please schedule a follow up appointment with your FENCE POST CUTTER. Please do not drink alcohol or smoke. - Post Discharge Activity
== END 2018-07-29 01:48 | disposition home or self-care (01) ==
LOC: JER 21:12
DX: O26.891 Other specified pregnancy related conditions, first trimester (principal); O20.0 Threatened abortion; O20.8 Other hemorrhage in early pregnancy; Z3A.01 Less than 8 weeks gestation of pregnancy
CPT/HCPCS: 36415; 76817-TC; 80048; 81003; 84702; 84703; 85025; 86850; 86900; 86901; 87086; 99282-25

== ENCOUNTER 2018-07-29 16:10 | Emergency (ER) | payer OTHER ==
[2018-07-29 16:27] VITALS: BP 105/49; PULSE 102; TEMP 98.1; BMI 41.5
[2018-07-29] MEDS ORDERED: ACETAMINOPHEN 500 MG TABLET (FP) PO ONE (16:29)
[2018-07-29] MEDS ORDERED: ACETAMINOPHEN 500 MG TABLET (FP) ONE (16:33)
--- NOTE | 2018-07-29 16:35 | PDOC ---
History of Present Illness - General Chief Complaint[place] [facility] [place] Complaint: PAIN Time Seen by Provider: 07/29/18 16:25 History Source: Patient Exam Limitations: Clinical Condition - History of Present Illness Initial Comments: 07/29/18 16:31 Patient with no sig Pmhx present with complains of abdominal cramping with intermittent vaginal spotting for 4 days. Patient was seen yesterday for same symptoms and beta hcg was 600+ and pelvic sono shows only thickended endometrium. pt LMP 06/05. Denies vaginal bleeding now. pt report she was not told yesterday she could take tylenol for her pain and that was why she came back. pt report she was only told to come back in 48hrs for repeat beta hcg. Denies N/V Timing/Duration: 24 hours Past History - Past Medical History Allergies/Adverse Reactions: Allergies Allergy/AdvReac Type Severity Reaction Status Date / Time No Known Allergies Allergy Verified 07/29/18 16:20 Home Medications: Ambulatory Orders Acetaminophen 650 mg PO Q6H PRN #20 capsule 07/29/18 Asthma: Yes COPD: No - Surgical History Abdominal Surgery: Yes Appendectomy: Yes - Reproductive History (#): 0 Para: 0 Cervical CA: No Dysfunctional Uterine Bleeding: No Ectopic : No Endometrial CA: No Polycystic Ovaries: No Therapeutic (s) & number: Yes (x1) Tubal Ligation: No - Immunization History Immunization Up to Date: Yes - Suicide/Smoking/Psychosocial Hx Smoking Status: No Smoking History: Never smoked Have you smoked in the past 12 months: No Number of Cigarettes Smoked Daily: 4 If you are a former smoker, when did you quit?: 2017 Information on smoking cessation initiated: No Hx Alcohol Use: No Drug/Substance Use Hx: No Substance Use Type: None Review of Systems - Review of Systems Able to Perform ROS?: Yes Is the patient limited Armenian proficient: No Constitutional: No: Chills, Fever, Malaise HEENTM: No: Symptoms Reported Respiratory: No: Symptoms reported Cardiac (ROS): No: Symptoms Reported ABD/GI: Yes: See HPI, Abdominal cramping (intermittent). No: Abdominal Distended, Abd. Pain w/ defecation, Blood Streaked Bowels, Constipated, Diarrhea , Difficulty Swallowing, Nausea, Poor Appetite, Poor Fluid Intake, Rectal Bleeding, Vomiting, Indigestion, Tarry Stools, Other : No: Symptoms Reported, See HPI, Burning, Dysuria, Discharge, Frequency, Flank Pain, Hematuria, Incontinence, Pain, Urgency All Other Systems: Reviewed and Negative *Physical Exam - Vital Signs Last Vital Signs Temp Pulse Resp BP Pulse Ox 98.1 F 102 H 16 105/49 L 98 07/29/18 16:22 07/29/18 16:22 07/29/18 16:22 07/29/18 16:22 07/29/18 16:22 - Physical Exam General Appearance: Yes: Nourished, Appropriately Dressed. No: Apparent Distress HEENT: positive: KIA, Normal ENT Inspection, Normal Voice, TMs Normal, Pharynx Normal Neck: positive: Supple. negative: Tender Respiratory/Chest: positive: Lungs Clear, Normal Breath Sounds. negative: Chest Tender, Respiratory Distress, Accessory Muscle Use Cardiovascular: positive: Regular Rhythm, Regular Rate. negative: Murmur Gastrointestinal/Abdominal: positive: Flat, Soft. negative: Tender, Organomegaly Neurologic: positive: Fully Oriented, Normal Mood/Affect, Normal Response Moderate Sedation - Procedure Monitoring Vital Signs: Procedure Monitoring Vital Signs Temperature 98.1 F 07/29/18 16:22 Pulse Rate 102 H 07/29/18 16:22 Respiratory Rate 16 07/29/18 16:22 Blood Pressure 105/49 L 07/29/18 16:22 O2 Sat by Pulse Oximetry (%) 98 07/29/18 16:22 Medical Decision Making - Medical Decision Making 07/29/18 16:35 Patient with no sig Pmhx present with complains of abdominal cramping with intermittent vaginal spotting for 4 days. Patient was seen yesterday for same symptoms and beta hcg was 600+ and pelvic sono shows only thickended endometrium. clinical exam unremarkable. explained to patient she can take tylenol for pain and come back for the 48hrs labs tomorrow and ultrasound or she can be seen today, have rpt labs and come back in 2 days again for rpt beta hcg. pt opted to take tylenol for pain and come back tomorrow for rpt work-up as instructed *DC/Admit/Observation/Transfer Diagnosis at time of Disposition: Threatened in early - Discharge Dispostion Disposition: HOME Condition at time of disposition: Stable Decision to Admit order: No - Prescriptions Prescriptions: Acetaminophen 650 mg PO Q6H PRN #20 capsule PRN Reason: pain - Referrals - Patient Instructions Printed Discharge Instructions: Threatened Additional Instructions: take tylenol every 4-6hrs as needed for pain. come back tomorrow as instructed for repeat blood work and ultrasound - Post Discharge Activity
== END 2018-07-29 17:38 | disposition home or self-care (01) ==
LOC: JERFT 16:10
DX: O26.891 Other specified pregnancy related conditions, first trimester (principal); Z3A.01 Less than 8 weeks gestation of pregnancy
CPT/HCPCS: 99281-25

== ENCOUNTER 2018-07-30 11:43 | Emergency (ER) | payer OTHER ==
[2018-07-30 12:17] VITALS: BP 114/61; PULSE 84; TEMP 98.4; BMI 41.5
--- NOTE | 2018-07-30 12:28 | PDOC ---
History of Present Illness - General Chief Complaint: Revisit, Lab Variance Stated Complaint: REVISIT, FOLLOW UP Time Seen by Provider: 07/30/18 12:19 Exam Limitations: No Limitations - History of Present Illness Initial Comments: 07/30/18 12:27 lmp 06/18/18 presents for follow up blood work r/o ectopic. Pt seen 2 days ago in ER with spotting Pt states today has RLQ pain and brown spotting. no back pain no vomiting. Severity: mild Associated Symptoms: reports: denies symptoms Aspirin Received prior to arrival: Yes: no aspirin today Asa Contraindications(Core Measure): No: Allergy Past History - Past Medical History Allergies/Adverse Reactions: Allergies Allergy/AdvReac Type Severity Reaction Status Date / Time No Known Allergies Allergy Verified 07/30/18 12:14 Home Medications: Ambulatory Orders Acetaminophen 650 mg PO Q6H PRN #20 capsule 07/29/18 Asthma: Yes COPD: No - Surgical History Abdominal Surgery: Yes Appendectomy: Yes - Reproductive History (#): 0 Para: 0 Cervical CA: No Dysfunctional Uterine Bleeding: No Ectopic : No Endometrial CA: No Polycystic Ovaries: No Therapeutic (s) & number: Yes (x1) Tubal Ligation: No - Immunization History Immunization Up to Date: Yes - Suicide/Smoking/Psychosocial Hx Smoking Status: No Smoking History: Unknown if ever smoked Have you smoked in the past 12 months: No Number of Cigarettes Smoked Daily: 4 If you are a former smoker, when did you quit?: 2017 Hx Alcohol Use: No Drug/Substance Use Hx: No Substance Use Type: None Review of Systems - Review of Systems Able to Perform ROS?: Yes Is the patient limited Ukrainian proficient: No Constitutional: No: Symptoms Reported ABD/GI: Yes: Symptoms Reported *Physical Exam - Vital Signs Last Vital Signs Temp Pulse Resp BP Pulse Ox 98.4 F 84 16 114/61 99 07/30/18 12:15 07/30/18 12:15 07/30/18 12:15 07/30/18 12:15 07/30/18 12:15 - Physical Exam General Appearance: Yes: Nourished, Appropriately Dressed HEENT: positive: EOMI, KIA Neck: positive: Supple. negative: Tender, Lymphadenopathy (R), Lymphadenopathy (L) Respiratory/Chest: positive: Lungs Clear, Normal Breath Sounds. negative: Decreased Breath Sounds, Crackles, Rales, Rhonchi, Stridor, Wheezing Cardiovascular: positive: Regular Rhythm, Regular Rate Gastrointestinal/Abdominal: positive: Normal Bowel Sounds, Tender (RLQ suprapubic area ) Lymphatic: negative: Adenopathy Extremity: positive: Normal Capillary Refill, Normal Inspection Integumentary: positive: Normal Color, Dry, Warm Moderate Sedation - Procedure Monitoring Vital Signs: Procedure Monitoring Vital Signs Temperature 98.4 F 07/30/18 12:15 Pulse Rate 84 07/30/18 12:15 Respiratory Rate 16 07/30/18 12:15 Blood Pressure 114/61 07/30/18 12:15 O2 Sat by Pulse Oximetry (%) 99 07/30/18 12:15 ED Treatment Course - RADIOLOGY Radiology Studies Ordered: Category Date Time Status TRANSVAGINAL US PREG [US] Stat Ultrasound 07/30/18 12:19 Ordered Medical Decision Making - Medical Decision Making 07/30/18 12:47 cc: LMP 06/18/18 positive test with brown vaginal spotting and lower abd pain will r/o ectopic recheck labs as pt was here 2 days ago for same, told to return in 48hrs pt without vomiting or fever, appears comfortable sitting on stretcher no acute distress. pt given tylenol yesterday with good relief of pain *DC/Admit/Observation/Transfer Diagnosis at time of Disposition: Positive test - Discharge Dispostion Disposition: HOME Condition at time of disposition: Good - Referrals [facility]errals: [facility] [Outside] Brianna Dyson MD [Staff Physician] - - Patient Instructions Additional Instructions: start taking vitamins any over the counter brand is fine. [facility], [facility] any pharmacy sells them follow with the computer support analyst listed below or at [facility] call them to make appointment bring copies of the lab tests and Ultrasounds done today Return to ER FOR HEAVY VAGINAL BLEEDING, INCREASED PAIN , FEVER, BACK PAIN OR ANY OTHER CONCERNS - Post Discharge Activity
== END 2018-07-30 14:47 | disposition home or self-care (01) ==
LOC: JERFT 11:43
DX: Z33.1 Pregnant state, incidental (principal); Z87.891 Personal history of nicotine dependence; J45.909 Unspecified asthma, uncomplicated
CPT/HCPCS: 36415; 76817-TC; 84702; 99281-25

== ENCOUNTER 2018-08-08 16:30 | Emergency (ER) | payer OTHER ==
[2018-08-08 16:39] VITALS: BP 109/57; PULSE 84; TEMP 98.5; BMI 38.7
--- NOTE | 2018-08-08 16:57 | PDOC ---
History of Present Illness - General Chief Complaint: Urinary Problem Stated Complaint: VAGINAL BLEEDING @ 7WK PREG Time Seen by Provider: 08/08/18 16:56 - History of Present Illness Initial Comments: 23 year old female [id number] presenting 7 weeks by TVUS two weeks prior with vaginal bleeding for the past few hours. Denies clot passage, material passage, fevers, chills, nausea, vomiting, diarrhea, or other symptoms. Her OBGYN is Renee Pryor . She is taking vitamins. 08/08/18 17:42 Past History - Past Medical History Allergies/Adverse Reactions: Allergies Allergy/AdvReac Type Severity Reaction Status Date / Time No Known Allergies Allergy Verified 08/08/18 16:38 Home Medications: Ambulatory Orders Acetaminophen 650 mg PO Q6H PRN #20 capsule 07/29/18 Asthma: Yes COPD: No - Surgical History Abdominal Surgery: Yes Appendectomy: Yes - Reproductive History (#): 0 Para: 0 Cervical CA: No Dysfunctional Uterine Bleeding: No Ectopic : No Endometrial CA: No Polycystic Ovaries: No Therapeutic (s) & number: Yes (x1) Tubal Ligation: No - Immunization History Immunization Up to Date: Yes - Suicide/Smoking/Psychosocial Hx Smoking Status: No Smoking History: Never smoked Have you smoked in the past 12 months: No Number of Cigarettes Smoked Daily: 4 If you are a former smoker, when did you quit?: 2017 Information on smoking cessation initiated: No Hx Alcohol Use: No Drug/Substance Use Hx: No Substance Use Type: None Review of Systems - Review of Systems Constitutional: No: Chills, Diaphoresis, Fever HEENTM: No: Blurred Vision, Tearing Respiratory: No: Cough, Orthopnea, Shortness of Breath, Wheezing Cardiac (ROS): No: Chest Pain, Edema, Irregular Heart Rate, Lightheadedness, Palpitations ABD/GI: Yes: Nausea. No: Diarrhea, Vomiting : No: Burning, Dysuria, Discharge Musculoskeletal: No: Back Pain, Joint Pain Integumentary: No: Bruising, Erythema, Flushing, Lesions Neurological: No: Headache, Numbness, Paresthesia Psychiatric: No: Anxiety Hematologic/Lymphatic: No: Anemia, Blood Clots, Easy Bleeding *Physical Exam - Vital Signs Last Vital Signs Temp Pulse Resp BP Pulse Ox 98.5 F 84 16 109/57 L 100 08/08/18 16:36 08/08/18 16:36 08/08/18 16:36 08/08/18 16:36 08/08/18 16:36 - Physical Exam General Appearance: Yes: Nourished, Appropriately Dressed. No: Apparent Distress HEENT: positive: EOMI, KIA, Normal ENT Inspection, Normal Voice Neck: positive: Trachea midline, Normal Thyroid, Supple. negative: Tender, Rigid Respiratory/Chest: positive: Lungs Clear, Normal Breath Sounds. negative: Chest Tender, Respiratory Distress, Accessory Muscle Use Cardiovascular: positive: Regular Rhythm, Regular Rate Female Pelvic Exam: positive: normal external exam, cervical os closed, normal adnexa, normal size ovaries, vaginal bleeding (dried blood in posterior vault without active bleeding). negative: CMT, discharge Gastrointestinal/Abdominal: positive: Normal Bowel Sounds, Flat, Soft. negative : Tender Musculoskeletal: positive: Normal Inspection. negative: Decreased Range of Motion Extremity: positive: Normal Capillary Refill, Normal Inspection, Normal Range of Motion. negative: Tender Integumentary: positive: Normal Color, Dry, Warm Neurologic: positive: Fully Oriented, Alert, Normal Mood/Affect, Normal Response , Motor Strength 5/5 Moderate Sedation - Procedure Monitoring Vital Signs: Procedure Monitoring Vital Signs Temperature 98.5 F 08/08/18 16:36 Pulse Rate 84 08/08/18 16:36 Respiratory Rate 16 08/08/18 16:36 Blood Pressure 109/57 L 08/08/18 16:36 O2 Sat by Pulse Oximetry (%) 100 08/08/18 16:36 ED Treatment Course - LABORATORY CBC & Chemistry Diagram: 08/08/18 17:20 08/08/18 17:43 Medical Decision Making - Medical Decision Making 23 year old with first trimester vaginal bleeding. Cervix closed, VSS, and no active bleed. Healthy IUP on TVUS. Labs WNL and blood type O +. Will C with OBYGYN follow up and pelvis rest instructions. 08/08/18 20:30 *DC/Admit/Observation/Transfer Diagnosis at time of Disposition: Vaginal bleeding, Threatened - Discharge Dispostion Disposition: HOME Condition at time of disposition: Improved Decision to Admit order: No - Referrals Referrals: Paris Ortiz [Primary Care Provider] - Carol Pryor MD [Certified Nurse Vice President Talent Management] - - Patient Instructions Printed Discharge Instructions: DI for Threatened Additional Instructions: Your baby is currently healthy but you are at increased risk of miscarriage because of your bleeding. Please follow up with Renee Pryor next week. Please avoid strenuous activity or sexual intercourse until you see your OBGyn. Please return to the ED i you have worsening bleeding. Please use Tylenol for the pain. - Post Discharge Activity
--- NOTE | 2018-08-08 17:37 | PDOC ---
Attending Attestation - HPI HPI: This patient is a 23 year old female A2 with PMHx of (possible IUP of 5 weeks as per US on 07/30/18) , who presents with vaginal bleeding today. Patient states that that she saw bright red blood in the toilet. Denies the passage of clots or tissue, denies lower abdominal cramping. ObGyn: Dr. Renee Pryor ([address]) 08/08/18 20:38 <Lynette Hathaway - Last Filed: 08/08/18 20:38> - Resident Resident Name: Temi Sainz - ED Attending Attestation I have performed the following: I have examined & evaluated the patient, The case was reviewed & discussed with the resident, I agree w/resident's findings & plan, Exceptions are as noted - HPI HPI: 08/08/18 17:45 23 yo female who states she is about 6 weeks with vaginal spotting 08/08/18 17:56 wnwd 23 yo female with vaginal bleeding heda ncat neck supple lungs cta b/l cvs [id number] abd soft,no rebound pelvic exam done by Dr Sainz, reports scant brown blood in vault ext no edema skin warm and dry neuro axox3, ambulatory - Physicial Exam PE: 08/08/18 23:02 PHYSICAL EXAM is written above 08/08/18 23:03 - Medical Decision Making 08/08/18 18:08 PMH A2 pt is receiving care plan pelvic US,type and screen 08/08/18 19:48 [id number]>17,000 pelvic US: intrauterine gestational sac 6 weeks 1 day, FHT 119 no free fluid no masses normal ovaries no torsion imp threatened AB plan follow up with papeterie table assembler <Sofy Watson - Last Filed: 08/08/18 23:03>
[2018-08-08] MEDS ORDERED: ACETAMINOPHEN 500 MG TABLET (FP) PO ONE (17:48)
[2018-08-08] MEDS ORDERED: ONDANSETRON 4 MG/2 ML VIAL IVPUSH ONE (17:59)
[2018-08-08 18:06] LABS: BASO % 0.3 % (0-2.0); EOS % 0.8 % (0-4.5); HEMATOCRIT 39.5 % (32.4-45.2); HEMOGLOBIN 13.6 GM/dL (10.7-15.3); LYMPH % 22.7 % (8-40); MCH 32.6 pg (25.7-33.7); MCHC 34.4 g/dl (32.0-36.0); MEAN CELL VOLUME 94.8 fl (80-96); MEAN PLT VOLUME 8.2 fl (7.5-11.1); MONO % 6.8 % (3.8-10.2); NEUT % 69.4 % (42.8-82.8); PLATELET COUNT 297 K/MM3 (134-434); RBC 4.17 M/mm3 (3.60-5.2); RDW 13.2 % (11.6-15.6); WHITE BLOOD COUNT 12.7 K/mm3 (4.0-10.0)
[2018-08-08 18:08] LABS: URINE APPEARANCE CLEAR; URINE BILIRUBIN NEGATIVE (<2.0 mg/dL); URINE COLOR YELLOW; URINE GLUCOSE (UA) NEGATIVE (NEGATIVE); URINE KETONE TRACE (NEGATIVE); URINE LEUK ESTERASE NEGATIVE (NEGATIVE); URINE NITRITE NEGATIVE (NEGATIVE); URINE PROTEIN NEGATIVE (NEGATIVE); URINE UROBILINOGEN NEGATIVE mg/dL (0.2-1.0)
[2018-08-08 18:18] LABS: INR 1.12 (0.83-1.09); PROTHROMBIN TIME (PATIENT) 13.2 SEC (9.7-13.0)
[2018-08-08 19:02] LABS: ALBUMIN 3.7 g/dl (3.4-5.0); ALK PHOS 93 U/L (45-117); ANION GAP 8 MMOL/L (8-16); BILIRUBIN,TOTAL 0.6 mg/dL (0.2-1); BLOOD UREA NITROGEN 11 mg/dL (7-18); CALCIUM 8.7 mg/dL (8.5-10.1); CHLORIDE 105 mmol/L (98-107); CO2 23 mmol/L (21-32); CREATININE 0.7 mg/dL (0.55-1.3); GLUCOSE,RANDOM 84 mg/dL (74-106); POTASSIUM 3.8 mmol/L (3.5-5.1); SGOT/AST 23 U/L (15-37); SGPT/ALT 29 U/L (13-61); SODIUM 137 mmol/L (136-145); TOT PROT 7.5 g/dl (6.4-8.2)
[2018-08-08] MEDS ORDERED: ONDANSETRON *ODT* 4 MG TABLET SL ONE (19:17)
[2018-08-08] MEDS ORDERED: ONDANSETRON *ODT* 4 MG TABLET ONE (19:17)
== END 2018-08-08 20:42 | disposition home or self-care (01) ==
LOC: JER 16:30
DX: O26.891 Other specified pregnancy related conditions, first trimester (principal); Z3A.01 Less than 8 weeks gestation of pregnancy; O20.0 Threatened abortion
CPT/HCPCS: 36415; 76817-TC; 80053; 81003; 84702; 85025; 85610; 86850; 86900; 86901; 99282-25; Q0162

== ENCOUNTER 2018-10-13 11:56 | Emergency (ER) | payer OTHER ==
[2018-10-13 12:19] VITALS: BMI 39.4
--- NOTE | 2018-10-13 13:49 | PDOC ---
History of Present Illness - General Chief Complaint: Pain Stated Complaint: STOMACH PAIN/ Time Seen by Provider: 10/13/18 12:53 History Source: Patient - History of Present Illness Timing/Duration: reports: intermittent Quality: reports: moderate Past History - Past Medical History Allergies/Adverse Reactions: Allergies Allergy/AdvReac Type Severity Reaction Status Date / Time No Known Allergies Allergy Verified 10/13/18 12:19 Home Medications: Ambulatory Orders Acetaminophen 650 mg PO Q6H PRN #20 capsule 07/29/18 Asthma: Yes COPD: No - Surgical History Abdominal Surgery: Yes Appendectomy: Yes - Reproductive History (#): 0 Para: 0 Cervical CA: No Dysfunctional Uterine Bleeding: No Ectopic : No Endometrial CA: No Polycystic Ovaries: No Therapeutic (s) & number: Yes (x1) Tubal Ligation: No - Immunization History Immunization Up to Date: Yes - Suicide/Smoking/Psychosocial Hx Smoking Status: No Smoking History: Never smoked Have you smoked in the past 12 months: No Number of Cigarettes Smoked Daily: 4 If you are a former smoker, when did you quit?: 2017 Information on smoking cessation initiated: No Hx Alcohol Use: No Drug/Substance Use Hx: No Substance Use Type: None Abd/GI Specific PMHX - Complaint Specific PMHX Colitis: No Gall Bladder Disease: No GERD: No Hepatitis: No Irritable Bowel Synd (IBS): No Review of Systems - Review of Systems Constitutional: No: Chills, Fever ABD/GI: Yes: Nausea, Vomiting, Abdominal cramping. No: Diarrhea : No: Dysuria, Flank Pain, Hematuria *Physical Exam - Vital Signs Last Vital Signs Temp Pulse Resp BP Pulse Ox 98.3 F 75 18 96/51 L 97 10/13/18 12:15 10/13/18 12:15 10/13/18 12:15 10/13/18 12:15 10/13/18 12:15 - Physical Exam General Appearance: Yes: Appropriately Dressed. No: Apparent Distress HEENT: positive: Normal Voice Neck: positive: Supple Respiratory/Chest: negative: Respiratory Distress Gastrointestinal/Abdominal: positive: Tender (minimal ttp to mid lower abd, NT over mcburneys), Soft Musculoskeletal: negative: CVA Tenderness Integumentary: positive: Dry, Warm Neurologic: positive: Fully Oriented, Alert, Normal Mood/Affect Moderate Sedation - Procedure Monitoring Vital Signs: Procedure Monitoring Vital Signs Temperature 98.3 F 10/13/18 12:15 Pulse Rate 75 10/13/18 12:15 Respiratory Rate 18 10/13/18 12:15 Blood Pressure 96/51 L 10/13/18 12:15 O2 Sat by Pulse Oximetry (%) 97 10/13/18 12:15 ED Treatment Course - LABORATORY CBC & Chemistry Diagram: 10/13/18 14:06 10/13/18 14:06 Medical Decision Making - Medical Decision Making 10/13/18 13:47 23 years old female, history of asthma, (s/p 2 elec ABs), ~16 weeks with no issues with so far, here with persistent intermittent lower abdominal pain 3 weeks. Had several episodes of nausea vomiting over the past 3 days but is able to po. No vaginal bleed, dysuria, change in bowel movements , fever or chills See exam 2nd trimester w/ abd pain and n/v No issues w/ preg so far Last US 09/17/18 No trauma Hypotensive here but well maryjane w/ minimal ttp to mid lower abd, NT to mcburneys -pain control -IVF -labs -US -reassess 10/13/18 14:24 10/13/18 17:29 Labs and ultrasound unremarkable. Repeat vitals improved. Patient able to tolerate po here. Stable for discharge to continue following up with her OB *DC/Admit/Observation/Transfer Diagnosis at time of Disposition: Abdominal pain affecting Nausea and vomiting Qualifiers: Vomiting type: unspecified Vomiting Intractability: non-intractable Qualified Code(s): R11.2 - Nausea with vomiting, unspecified - Discharge Dispostion Disposition: HOME Condition at time of disposition: Improved - Referrals - Patient Instructions Printed Discharge Instructions: Managing Symptoms of Additional Instructions: Your labs and ultrasound are normal here. Please maintain adequate hydration and follow-up with your OB this week - Post Discharge Activity
[2018-10-13] MEDS ORDERED: ACETAMINOPHEN 325 MG TABLET (FP) PO ONE (13:50)
[2018-10-13] MEDS ORDERED: SODIUM CHLORIDE 1,000 ML IV STA (13:50)
[2018-10-13] MEDS ORDERED: ACETAMINOPHEN 1000 MG/100 ML VIAL (NON FORMULARY) IVPB ONE (13:51)
[2018-10-13 14:22] LABS: BASO % 0.3 % (0-2.0); HEMATOCRIT 38.9 % (32.4-45.2); HEMOGLOBIN 13.5 GM/dL (10.7-15.3); LYMPH % 25.8 % (8-40); MCH 33.4 pg (25.7-33.7); MCHC 34.7 g/dl (32.0-36.0); MEAN CELL VOLUME 96.1 fl (80-96); MEAN PLT VOLUME 8.6 fl (7.5-11.1); NEUT % 65.9 % (42.8-82.8); PLATELET COUNT 278 K/MM3 (134-434); RBC 4.05 M/mm3 (3.60-5.2); RDW 12.6 % (11.6-15.6); WHITE BLOOD COUNT 9.9 K/mm3 (4.0-10.0)
[2018-10-13 14:29] LABS: URINE APPEARANCE TURBID; URINE BILIRUBIN NEGATIVE (<2.0 mg/dL); URINE COLOR AMBER; URINE GLUCOSE (UA) NEGATIVE (NEGATIVE); URINE KETONE NEGATIVE (NEGATIVE); URINE LEUK ESTERASE NEGATIVE (NEGATIVE); URINE NITRITE NEGATIVE (NEGATIVE); URINE PROTEIN NEGATIVE (NEGATIVE); URINE UROBILINOGEN NEGATIVE mg/dL (0.2-1.0)
--- NOTE | 2018-10-13 14:30 | PDOC ---
*Physical Exam - Vital Signs Last Vital Signs Temp Pulse Resp BP Pulse Ox 98.3 F 75 18 96/51 L 97 10/13/18 12:15 10/13/18 12:15 10/13/18 12:15 10/13/18 12:15 10/13/18 12:15 - Physical Exam Comments: 10/13/18 14:29 The patient was examined by [DAVID Hall] under my direct supervision. I personally evaluated the patient. I concur with the above findings and the plan of care. ED Treatment Course - LABORATORY CBC & Chemistry Diagram: 10/13/18 14:06 10/13/18 14:06 - ADDITIONAL ORDERS Additional order review: 10/13/18 14:06 RBC 4.05 MCV 96.1 H MCHC 34.7 RDW 12.6 MPV 8.6 Neutrophils % 65.9 Lymphocytes % 25.8 Monocytes % 7.0 Eosinophils % 1.0 Basophils % 0.3 *DC/Admit/Observation/Transfer Diagnosis at time of Disposition: Abdominal pain affecting , Nausea and vomiting - Discharge Dispostion Disposition: HOME Condition at time of disposition: Improved - Referrals - Patient Instructions Printed Discharge Instructions: Managing Symptoms of Additional Instructions: Your labs and ultrasound are normal here. Please maintain adequate hydration and follow-up with your OB this week - Post Discharge Activity
[2018-10-13 14:45] LABS: ALBUMIN 3.1 g/dl (3.4-5.0); ALK PHOS 101 U/L (45-117); ANION GAP 7 MMOL/L (8-16); BILIRUBIN,TOTAL 0.3 mg/dL (0.2-1); BLOOD UREA NITROGEN 6 mg/dL (7-18); CALCIUM 8.6 mg/dL (8.5-10.1); CHLORIDE 106 mmol/L (98-107); CO2 25 mmol/L (21-32); CREATININE 0.5 mg/dL (0.55-1.3); GLUCOSE,RANDOM 81 mg/dL (74-106); POTASSIUM 3.7 mmol/L (3.5-5.1); SGOT/AST 40 U/L (15-37); SGPT/ALT 69 U/L (13-61); SODIUM 137 mmol/L (136-145); TOT PROT 6.8 g/dl (6.4-8.2)
[2018-10-13] MEDS ORDERED: ACETAMINOPHEN INJECTION 100 ML IVPB ONE (15:06)
[2018-10-13 18:08] VITALS: BP 108/54; PULSE 81; TEMP 98.2
== END 2018-10-13 18:07 | disposition home or self-care (01) ==
LOC: JER 11:56
DX: O26.892 Other specified pregnancy related conditions, second trimester (principal); Z3A.16 16 weeks gestation of pregnancy; R11.2 Nausea with vomiting, unspecified; J45.909 Unspecified asthma, uncomplicated
CPT/HCPCS: 36415; 76815; 80053; 81003; 85025; 87086; 99282-25; J0131; J7030

== ENCOUNTER 2019-02-03 08:55 | Emergency (ER) | payer OTHER | END 2019-02-03 11:35 | disposition home or self-care (01) | LOC: JER 08:55 ==

== ENCOUNTER 2019-04-02 20:10 | Inpatient (IN) | payer OTHER ==
[2019-04-02 21:58] LABS: BASO % 0.2 % (0-2.0); EOS % 1.2 % (0-4.5); HEMATOCRIT 37.4 % (32.4-45.2); HEMOGLOBIN 12.4 GM/dL (10.7-15.3); LYMPH % 24.2 % (8-40); MEAN CELL VOLUME 96.8 fl (80-96); MEAN PLT VOLUME 9.8 fl (7.5-11.1); MONO % 8.1 % (3.8-10.2); NEUT % 66.3 % (42.8-82.8); PLATELET COUNT 246 K/MM3 (134-434); RBC 3.86 M/mm3 (3.60-5.2); RDW 12.8 % (11.6-15.6); WHITE BLOOD COUNT 12.8 K/mm3 (4.0-10.0)
[2019-04-02 22:14] LABS: INR 0.92 (0.83-1.09); PROTHROMBIN TIME (PATIENT) 10.8 SEC (9.7-13.0)
[2019-04-02 22:17] LABS: ACTIVATED PTT 30.7 SECONDS (25.2-36.5)
[2019-04-02 22:21] LABS: BLOOD UREA NITROGEN 11.1 mg/dL (7-18); CREATININE 0.7 mg/dL (0.55-1.3); POTASSIUM 3.8 mmol/L (3.5-5.1)
[2019-04-02 22:32] VITALS: BMI 44.7
[2019-04-03] MEDS ORDERED: ELECTROLYTE-148 SOLN 1,000 ML IV SCH (03:45)
[2019-04-03] MEDS ORDERED: CITRIC ACID/SODIUM CITRATE 30 ML UNIT-DOSE CUP PO ONE (03:47)
--- NOTE | 2019-04-03 03:55 | HP ---
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 Weeks Gestation by Dates: 40.4 ...EDC by Dates: 03/29/19 ...EDC by Sono: 04/02/19 Infectious Disease: Yes: STD's (hx of multiple HSV out breaks) - Past Surgical History Hx Myomectomy: No Hx Transabdominal Cerclage: No - Smoking History Smoking history: Former smoker Have you smoked in the past 12 months: Yes Aproximately how many cigarettes per day: 4 If you are a former smoker, when did you quit?: 08/17 - Alcohol/Substance Use Hx Alcohol Use: No History of Substance Use: reports: None - Social History History of Recent Travel: No Home Medications - Allergies Allergies/Adverse Reactions: Allergies Allergy/AdvReac Type Severity Reaction Status Date / Time No Known Allergies Allergy Verified 04/02/19 20:43 - Home Medications Home Medications: Ambulatory Orders Vitamins (Sjr) - 1 tab PO DAILY 11/16/18 Ferrous Sulfate [Feosol] 325 mg PO DAILY 03/25/19 Valacyclovir HCl [Valtrex -] 500 mg PO DAILY 03/25/19 Review of Systems - Review of Systems Constitutional: reports: No Symptoms Eyes: reports: No Symptoms HENT: reports: No Symptoms Neck: reports: No Symptoms Cardiovascular: reports: No Symptoms Respiratory: reports: No Symptoms Gastrointestinal: reports: No Symptoms Genitourinary: reports: No Symptoms Breasts: reports: No Symptoms Reported Musculoskeletal: reports: No Symptoms Integumentary: reports: Pruritis (labia area), Rash Neurological: reports: No Symptoms Endocrine: reports: No Symptoms Hematology/Lymphatic: reports: No Symptoms Psychiatric: reports: No Symptoms Physical Exam - Maternity Vital Signs: Vital Signs Temperature 98.4 F 04/03/19 02:00 Pulse Rate 84 04/03/19 02:00 Respiratory Rate 20 04/03/19 02:00 Blood Pressure 100/59 L 04/03/19 02:00 O2 Sat by Pulse Oximetry (%) Constitutional: Yes: Well Nourished, No Distress, Calm Eyes: Yes: WNL, Conjunctiva Clear, EOM Intact HENT: Yes: WNL, Atraumatic, Normocephalic Neck: Yes: WNL, Supple, Trachea Midline Cardiovascular: Yes: WNL, Regular Rate and Rhythm Breast(s): Yes: WNL - Abdominal Exam/OB Fundal Height: 40 Number of Fetuses: Single Presentation: Vertex Regularity: Irritability Intensity: Unaware Monitor Mode: External Heart Rate Location: [facility] Category: I Accelerations: Uniform Decelerations: None - Vaginal Exam/OB Vaginal Bleediing: No Speculum Exam: Yes Dilatation (cm): closed Effacement (%): 0 Amniotic Membrane Status: Intact Presentation: Vertex/Position Station: -3 - Physical Exam Musculoskeletal: Yes: WNL Extremities: Yes: WNL Edema: LLE: Trace, RLE: Trace Integumentary: Yes: Rash Deep Tendon Reflex Grade: Normal +2 ...Motor Strength: WNL Psychiatric: Yes: WNL - Labs Lab Results: CBC, BMP 04/02/19 21:35 04/02/19 21:35 Hemorrhage Risk Assessment - Risk Factors Risk Score: 1 Risk Level: Medium Risk Problem List - Problems (1) with 38 to 41 completed weeks gestation Code(s): [id number] - (2) with 41 completed weeks gestation Code(s): Z3A.41 - 41 WEEKS GESTATION OF (3) Herpes genitalis in women Code(s): A60.09 - HERPESVIRAL INFECTION OF OTHER UROGENITAL TRACT Assessment/Plan c/s , risks and benfit , ulternatives discussed in detail , all questions answered
[2019-04-03] MEDS ORDERED: OXYTOCIN 20 UNITS in 0.9% NS 20 UNIT/1,000 ML INFUS.BAG IV ONE (08:32)
[2019-04-03] MEDS ORDERED: morphine SULFATE/PF 0.5 MG/ML (2cc Syringe - QUVA) ONE (08:34)
[2019-04-03] MEDS ORDERED: ceFAZolin SODIUM 1 GM VIAL ONE (08:55)
[2019-04-03] MEDS ORDERED: DEXAMETHASONE SOD PHOSPHATE 4 MG/1 ML VIAL ONE (09:24)
[2019-04-03] MEDS ORDERED: oxyCODONE HCL 5 MG TABLET PO PRN (09:53)
[2019-04-03] MEDS ORDERED: METHYLERGONOVINE MALEATE 0.2 MG/1 ML AMP IM PRN (09:53)
[2019-04-03] MEDS ORDERED: BENZOCAINE 28 GM HEMORRHOIDAL OINTMENT PR PRN (09:53)
[2019-04-03] MEDS ORDERED: BENZOCAINE 20% 57 GM BOTTLE TP PRN (09:53)
[2019-04-03] MEDS ORDERED: WITCH HAZEL 50% (TUCKS) 40 PAD/JAR PAD TP PRN (09:53)
[2019-04-03] MEDS ORDERED: ONDANSETRON 4 MG/2 ML VIAL IVPUSH PRN (09:54)
[2019-04-03] MEDS ORDERED: OXYTOCIN 20 UNITS in 0.9% NS 20 UNIT/1,000 ML INFUS.BAG IV SCH ×2 (10:00→17:59)
[2019-04-03] MEDS ORDERED: DEXTROSE 5%-LACTATED RINGERS 1,000 ML IV SCH (10:00)
--- NOTE | 2019-04-03 10:01 | OP ---
Operative Note - Note: Operative Date: 04/03/19 Pre-Operative Diagnosis: 41 weeks, active herpes Operation: primary LST c/s Findings: baby girl , apgr 05/09 ,, rot Surgeon: Everardo Rae Strap Buckler Machine: Isaiah Moss Anesthesiologist/FISH TENDER: Yoko Álvarez Anesthesia: Spinal Specimens Removed: placenta Estimated Blood Loss (mls): 500 Drains & Tubes with Location: bloom Fluid Volume Replaced (mls): 0 Operative Report Dictated: Yes
[2019-04-03] MEDS: CEFAZOLIN 1 GM/D5W 1 GM/50 ML BAG IVPB SCH ×2 (10:30→18:25)
[2019-04-03] MEDS ORDERED: ACETAMINOPHEN INJECTION 100 ML IVPB ONE (10:34)
[2019-04-03] MEDS: diphenhydrAMINE HCL 25 MG CAPSULE (FP) PO PRN ×2 (10:57→22:45)
[2019-04-03] MEDS ORDERED: ACETAMINOPHEN 1000 MG/100 ML VIAL (NON FORMULARY) IVPB ONE (11:04)
--- NOTE | 2019-04-03 19:09 | OP ---
DATE OF OPERATION: 04/03/2019 PREOPERATIVE DIAGNOSES: , 41 weeks; active genital herpes. POSTOPERATIVE DIAGNOSES: , 41 weeks; active genital herpes. PROCEDURE: Primary low-segment transverse section. SURGEON: Ángela Gaming MD EXTENSION PROFESSOR: DAVID Blankenship ANESTHESIA: Spinal. ANESTHESIOLOGIST: Yoko Álvarez DO ESTIMATED BLOOD LOSS: 500 mL. FINDING: Live baby girl, 9 and 9. OPERATION: Patient was taken to operating room on adequate spinal anesthesia. Abdomen and perineum was prepped and draped. Pfannenstiel abdominal skin incision was made. Abdominal wall was cut layer by layer until peritoneum was exposed and incised. Upon entering abdominal cavity, lower uterine segment was identified and uterovesical fold of peritoneum established. Bladder was pushed down. A low transverse uterine incision was made, incision extended laterally. Amniotic sac was entered, large amount of clear fluid noted. Head delivered from right occiput transverse position. Nasopharynx was suctioned. A liver baby girl was delivered without any difficulty, 9 and 9. Placenta was delivered manually. Uterine cavity was cleared of all remaining tissue. Uterine incision was closed in 2 layers, 1st layer with 0 Biosyn continuous suture, the 2nd layer with 0 Biosyn imbricating the 1st layer. Bladder flap was closed with 0 Biosyn continuous suture. Both tubes and ovaries were checked, were normal, no active bleeding was seen. All the lap pad, sponge count, and instrument count were correct. Then peritoneum was closed with 0 Biosyn continuous suture. Muscles were brought together with interrupted suture of 0 Biosyn. Fascia was closed with 0 Biosyn continuous suture, subcutaneous fat with interrupted suture of 0 Biosyn, and the skin was closed with ilene. Patient tolerated procedure well, left the OR in good condition. ÁNGELA GAMING M.D. [id number]
[2019-04-03] MEDS: IBUPROFEN 800 MG/8 ML IJ IVPB PRN (20:06)
[2019-04-03] MEDS: valACYclovir HCL 500 MG TABLET (FP) PO SCH (22:18)
[2019-04-04] MEDS: IBUPROFEN 800 MG/8 ML IJ IVPB PRN (03:05)
--- NOTE | 2019-04-04 07:31 | PN ---
Progress Note (short form) - Note Progress Note: pod 1 s/p c/s doing well, no c/o , comfortable CBC, BMP 04/02/19 21:35 04/02/19 21:35 Last Vital Signs Temp Pulse Resp BP Pulse Ox 98.0 F 75 18 115/74 04/04/19 06:00 04/04/19 06:00 04/04/19 06:00 04/04/19 06:00 abdomen soft, no distension, no cva , BS are present incision dry, clean . no calf tenderness plan ambulate cbc advance diet pain management Problem List - Problems (1) with 38 to 41 completed weeks gestation Code(s): KCY3343 - (2) with 41 completed weeks gestation Code(s): Z3A.41 - 41 WEEKS GESTATION OF (3) Herpes genitalis in women Code(s): A60.09 - HERPESVIRAL INFECTION OF OTHER UROGENITAL TRACT
[2019-04-04] MEDS: IBUPROFEN 600 MG TABLET (FP) PO PRN ×4 (08:24→21:30)
[2019-04-04] MEDS: ACETAMINOPHEN 325 MG TABLET (FP) PO PRN ×3 (08:25→17:27)
[2019-04-04] MEDS: SIMETHICONE 80 MG TAB.CHEW (FP) PO PRN ×4 (08:26→21:29)
[2019-04-04 08:36] LABS: BASO % 0.3 % (0-2.0); EOS % 0.5 % (0-4.5); HEMATOCRIT 31.6 % (32.4-45.2); HEMOGLOBIN 10.6 GM/dL (10.7-15.3); LYMPH % 23.2 % (8-40); MCH 32.6 pg (25.7-33.7); MCHC 33.7 g/dl (32.0-36.0); MEAN CELL VOLUME 96.7 fl (80-96); MEAN PLT VOLUME 10.3 fl (7.5-11.1); MONO % 8.5 % (3.8-10.2); NEUT % 67.5 % (42.8-82.8); PLATELET COUNT 219 K/MM3 (134-434); RBC 3.26 M/mm3 (3.60-5.2); RDW 12.8 % (11.6-15.6); WHITE BLOOD COUNT 15.1 K/mm3 (4.0-10.0)
--- NOTE | 2019-04-04 08:39 | PN ---
Progress Note (short form) - Note Progress Note: Anesthesia POD#1 S/P under Spinal Anesthesia and Duramorph VSS,no N/V,pain is under control,legs strength is good. Some itch is still present. Yun Carter MD.
[2019-04-04] MEDS ORDERED: BISACODYL 10 MG SUPP.RECT RC PRN (09:53)
[2019-04-04] MEDS: valACYclovir HCL 500 MG TABLET (FP) PO SCH ×2 (10:03→21:30)
[2019-04-04] MEDS: diphenhydrAMINE HCL 25 MG CAPSULE (FP) PO PRN (10:03)
[2019-04-04] MEDS: ENOXAPARIN NA (PORCINE) 40 MG/0.4 ML DISP.SYRIN SQ SCH (10:04)
[2019-04-04] MEDS: oxyCODONE HCL 5 MG TABLET PO PRN (21:29)
[2019-04-05] MEDS: SIMETHICONE 80 MG TAB.CHEW (FP) PO PRN ×4 (04:59→21:22)
[2019-04-05] MEDS: IBUPROFEN 600 MG TABLET (FP) PO PRN ×4 (05:00→21:24)
[2019-04-05] MEDS: ACETAMINOPHEN 325 MG TABLET (FP) PO PRN ×2 (05:00→21:23)
--- NOTE | 2019-04-05 08:12 | PN ---
Post Progress Note - Subjective Subjective: Pain controlled. No fevers/chills. Ambulating w/o difficulty Post Day: 2 Type of Delivery: Primary C/S Vital Signs: Vital Signs Temperature 98.4 F 04/04/19 22:00 Pulse Rate 85 04/04/19 22:00 Respiratory Rate 18 04/04/19 22:00 Blood Pressure 113/58 L 04/04/19 22:00 O2 Sat by Pulse Oximetry (%) Uterus: Yes: Fundus Firm, Fundus below umbilicus Incision: Yes: Dressing dry and intact Abdomen/GI: Yes: Abdomen soft, Tolerating PO Lochia: Yes: Rubra Lochia, amount: Small Extremities: Yes: Calves non-tender Activity: Ambulating - Labs Labs: CBC WBC 15.1 K/mm3 (4.0-10.0) H 04/04/19 06:50 RBC 3.26 M/mm3 (3.60-5.2) L 04/04/19 06:50 Hgb 10.6 GM/dL (10.7-15.3) L 04/04/19 06:50 Hct 31.6 % (32.4-45.2) L D 04/04/19 06:50 MCV 96.7 fl (80-96) H 04/04/19 06:50 MCH 32.6 pg (25.7-33.7) 04/04/19 06:50 MCHC 33.7 g/dl (32.0-36.0) 04/04/19 06:50 RDW 12.8 % (11.6-15.6) 04/04/19 06:50 Plt Count 219 K/MM3 (134-434) 04/04/19 06:50 MPV 10.3 fl (7.5-11.1) 04/04/19 06:50 Absolute Neuts (auto) 10.2 K/mm3 (1.5-8.0) H 04/04/19 06:50 Neutrophils % 67.5 % (42.8-82.8) 04/04/19 06:50 Lymphocytes % 23.2 % (8-40) 04/04/19 06:50 Monocytes % 8.5 % (3.8-10.2) 04/04/19 06:50 Eosinophils % 0.5 % (0-4.5) 04/04/19 06:50 Basophils % 0.3 % (0-2.0) 04/04/19 06:50 Nucleated RBC % 0 % (0-0) 04/04/19 06:50 Assessment/Plan 23yo s/p PLTCS, POD#2 Routine PP care OOB, ambulate Labs reviewed D/C to home tomorrow Wendy Palmer MD
[2019-04-05] MEDS: oxyCODONE HCL 5 MG TABLET PO PRN ×3 (09:10→21:22)
[2019-04-05] MEDS: ENOXAPARIN NA (PORCINE) 40 MG/0.4 ML DISP.SYRIN SQ SCH (09:12)
[2019-04-05] MEDS: valACYclovir HCL 500 MG TABLET (FP) PO SCH ×2 (09:12→21:34)
[2019-04-05] MEDS ORDERED: SENNOSIDES/DOCUSATE COMBO (SENNA PLUS) TABLET (UD) PO PRN (22:00)
[2019-04-06] MEDS: SIMETHICONE 80 MG TAB.CHEW (FP) PO PRN ×2 (05:25→12:38)
[2019-04-06] MEDS: oxyCODONE HCL 5 MG TABLET PO PRN (05:26)
[2019-04-06] MEDS: IBUPROFEN 600 MG TABLET (FP) PO PRN ×2 (05:26→12:36)
[2019-04-06 07:26] LABS: BASO % 0.2 % (0-2.0); EOS % 1.5 % (0-4.5); HEMATOCRIT 33.6 % (32.4-45.2); HEMOGLOBIN 11.3 GM/dL (10.7-15.3); LYMPH % 30.2 % (8-40); MCH 32.8 pg (25.7-33.7); MCHC 33.7 g/dl (32.0-36.0); MEAN CELL VOLUME 97.4 fl (80-96); MONO % 9.4 % (3.8-10.2); NEUT % 58.7 % (42.8-82.8); PLATELET COUNT 277 K/MM3 (134-434); RBC 3.45 M/mm3 (3.60-5.2); WHITE BLOOD COUNT 10.2 K/mm3 (4.0-10.0)
--- NOTE | 2019-04-06 08:58 | PN ---
Post Progress Note - Subjective Subjective: pt c/o pain fazal 8-9/10. no bm yet Post Day: 3 Type of Delivery: Primary C/S Vital Signs: Vital Signs Temperature 98.4 F 04/05/19 22:00 Pulse Rate 98 H 04/05/19 22:00 Respiratory Rate 18 04/05/19 22:00 Blood Pressure 125/75 04/05/19 22:00 O2 Sat by Pulse Oximetry (%) Breast Exam: Yes: Soft, Other (not BF ). No: Engorged Uterus: Yes: Fundus Firm, Fundus below umbilicus, Non-tender Incision: Yes: Horacio intact. No: Redness, Oozing Abdomen/GI: Yes: Abdomen soft (bs active ), Passing flatus, Tolerating PO (diet ). No: Abdominal Distention, Tender Lochia: Yes: Rubra Lochia, amount: Moderate Extremities: Yes: Calves non-tender Perineum: Yes: Intact Activity: Ambulating (not enough as per nurse ) - Labs Labs: CBC WBC 10.2 K/mm3 (4.0-10.0) H 04/06/19 06:49 RBC 3.45 M/mm3 (3.60-5.2) L 04/06/19 06:49 Hgb 11.3 GM/dL (10.7-15.3) 04/06/19 06:49 Hct 33.6 % (32.4-45.2) 04/06/19 06:49 MCV 97.4 fl (80-96) H 04/06/19 06:49 MCH 32.8 pg (25.7-33.7) 04/06/19 06:49 MCHC 33.7 g/dl (32.0-36.0) 04/06/19 06:49 RDW 13.0 % (11.6-15.6) 04/06/19 06:49 Plt Count 277 K/MM3 (134-434) D 04/06/19 06:49 MPV 9.0 fl (7.5-11.1) D 04/06/19 06:49 Absolute Neuts (auto) 6.0 K/mm3 (1.5-8.0) 04/06/19 06:49 Neutrophils % 58.7 % (42.8-82.8) 04/06/19 06:49 Lymphocytes % 30.2 % (8-40) D 04/06/19 06:49 Monocytes % 9.4 % (3.8-10.2) 04/06/19 06:49 Eosinophils % 1.5 % (0-4.5) D 04/06/19 06:49 Basophils % 0.2 % (0-2.0) 04/06/19 06:49 Nucleated RBC % 0 % (0-0) 04/06/19 06:49 Problem List - Problems (1) Status post section routine follow-up Code(s): Z39.2 - ENCOUNTER FOR ROUTINE FOLLOW-UP; Z98.891 - HISTORY OF UTERINE SCAR FROM PREVIOUS SURGERY Assessment/Plan s/p p c/s for Herpes genitalis stable Plan dulcolax souppository encourage ambulation ct valtrex discharge tomorrow
[2019-04-06] MEDS: ENOXAPARIN NA (PORCINE) 40 MG/0.4 ML DISP.SYRIN SQ SCH (09:24)
[2019-04-06] MEDS: valACYclovir HCL 500 MG TABLET (FP) PO SCH (09:24)
[2019-04-06 11:33] VITALS: BP 133/50; PULSE 91; TEMP 98.2
[2019-04-06] MEDS: ACETAMINOPHEN 325 MG TABLET (FP) PO PRN (12:37)
--- NOTE | 2019-04-06 13:45 | DS ---
Physical Examination Vital Signs: Vital Signs Temperature 98.2 F 04/06/19 10:00 Pulse Rate 91 H 04/06/19 10:00 Respiratory Rate 20 04/06/19 10:00 Blood Pressure 133/50 L 04/06/19 10:00 O2 Sat by Pulse Oximetry (%) Constitutional: Yes: No Distress HENT: Yes: Atraumatic Neck: Yes: Supple Respiratory: Yes: Regular Gastrointestinal: Yes: Normal Bowel Sounds, Soft ...Rectal Exam: Yes: Deferred Renal/: Yes: Other (deferred) Breast(s): Yes: Other (deferred) Musculoskeletal: Yes: WNL Extremities: Yes: Calf Tenderness Edema: LLE: 3+, RLE: 3+ Integumentary: Yes: WNL Wound/Incision: Yes: Clean/Dry, [place] Intact Neurological: Yes: Alert, Oriented ...Motor Strength: WNL Psychiatric: Yes: Alert, Oriented Labs: CBC, BMP 04/06/19 06:49 04/02/19 21:35 Discharge Summary Reason For Visit: LABOR Current Active Problems Herpes genitalis in women (Acute) with 38 to 41 completed weeks gestation (Acute) with 41 completed weeks gestation (Acute) Status post section routine follow-up (Acute) Procedures: Principal: PLTCS Hospital Course: uncomplicated Condition: Stable - Instructions Referrals: Raymundo Nair MD [Staff Physician] - Disposition: HOME - Home Medications Comprehensive Discharge Medication List: Ambulatory Orders Vitamins (Sjr) - 1 tab PO DAILY 11/16/18 Ferrous Sulfate [Feosol] 325 mg PO DAILY 03/25/19 Valacyclovir HCl [Valtrex -] 500 mg PO DAILY 03/25/19
--- NOTE | 2019-04-11 16:57 | PATH ---
Surgical Pathology Report Patient Name: LEIGH NORIEGA Med. Rec. 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 Electronically Signed Jaquelin Velasco M.D. Gross Description The specimen is received fresh labeled placenta and is a 481 gram, 19.0 x 14.0 x 3.6 cm. placenta with attached membranes and umbilical cord. The attached membranes are hagen, translucent with focal opacities and insert marginally. The umbilical cord measures 31 cm. in length and averages 0.9 cm. in diameter. The cord inserts eccentrically, 1 cm. to the nearest margin. No true knots or strictures are identified. Cut surface of the umbilical cord reveals 3 vessels. The surface is nova blue with moderate fibrin deposition and appropriate caliber vessels. The maternal surface is red-brown and intact. Sectioning reveals red-brown, spongy parenchyma. No lesions are identified. Nuclear Equipment Test Engineer sections are submitted in three cassettes as follows: 1- membrane rolls and umbilical cord; 2-3- full thickness sections of placenta. 04/07/2019 [facility]04/07/2019
== END 2019-04-06 16:20 | disposition home or self-care (01) | DRG 540 ==
LOC: JLDR 20:10 → J3W 04-03 11:20
PROVIDERS: ADMIT Obstetrics & Gynecology; ATTEND Obstetrics & Gynecology
PROC: 10D00Z1 Extraction of Products of Conception, Low, Open Approach (ICD-10-PCS; principal; 2019-04-03)
DX: O98.52 Other viral diseases complicating childbirth (principal); A60.09 Herpesviral infection of other urogenital tract; O48.0 Post-term pregnancy; Z3A.41 41 weeks gestation of pregnancy; Z37.0 Single live birth
CPT/HCPCS: 36415; 80048; 85025; 85610; 85730; 86593; 86850; 86900; 86901; 88307-TC; 93970-TC; J0131

== ENCOUNTER 2019-06-21 22:40 | Inpatient (IN) | payer OTHER ==
--- NOTE | 2019-06-21 23:40 | PDOC ---
*Physical Exam - Vital Signs Last Vital Signs Temp Pulse Resp BP Pulse Ox 97.8 F 100 H 17 119/65 100 06/21/19 22:42 06/21/19 22:42 06/21/19 22:42 06/21/19 22:42 06/21/19 22:42 ED Treatment Course - LABORATORY CBC & Chemistry Diagram: 06/22/19 00:05 06/22/19 00:05 Medical Decision Making - Medical Decision Making 06/21/19 23:40 Patient seen by the advanced practice provider under my direct supervision. Ancillary testing reviewed as necessary. I agree with plan as outlined by the advanced practice provider. Discharge - Discharge Information Problems reviewed: Yes Clinical Impression/Diagnosis: Abdominal pain Qualifiers: Abdominal location: right upper quadrant Qualified Code(s): R10.11 - Right upper quadrant pain - Follow up/Referral - Patient Discharge Instructions - Post Discharge Activity
--- NOTE | 2019-06-21 23:43 | PDOC ---
History of Present Illness - General Chief Complaint: Back Pain Stated Complaint: BACK PAIN Time Seen by Provider: 06/21/19 23:37 History Source: Patient - History of Present Illness Initial Comments: 06/21/19 23:39 23 year old female c/o RUQ pain radiating to right flank pain. reports subjective fever since yesterday. + vomiting x 1 patient reports that pain is worse with movement and breathing. denies cough/ congestion patient reports that she had a baby 3 months ago. No recent travel, no ocp use, 06/21/19 23:41 06/22/19 00:07 Past History - Past Medical History Allergies/Adverse Reactions: Allergies Allergy/AdvReac Type Severity Reaction Status Date / Time No Known Allergies Allergy Verified 06/21/19 22:45 Home Medications: Ambulatory Orders NK [No Known Home Medication] 06/22/19 Asthma: Yes (last attack in November 2018) Cancer: No Cardiac Disorders: No COPD: No Diabetes: No HTN: No Seizures: No Thyroid Disease: No - Surgical History Abdominal Surgery: Yes Appendectomy: Yes - Reproductive History (#): 0 Para: 0 Cervical CA: No Dysfunctional Uterine Bleeding: No Ectopic : No Endometrial CA: No Polycystic Ovaries: No Therapeutic (s) & number: Yes (x1) Tubal Ligation: No - Immunization History Immunization Up to Date: Yes - Psycho Social/Smoking Cessation Hx Smoking Status: No Smoking History: Current every day smoker Have you smoked in the past 12 months: Yes Number of Cigarettes Smoked Daily: 4 If you are a former smoker, when did you quit?: 08/17 Information on smoking cessation initiated: No Hx Alcohol Use: No Drug/Substance Use Hx: No Substance Use Type: None Hx Substance Use Treatment: No Review of Systems - Review of Systems Able to Perform ROS?: Yes Is the patient limited Croatian proficient: No *Physical Exam - Vital Signs Last Vital Signs Temp Pulse Resp BP Pulse Ox 97.8 F 100 H 17 119/65 100 06/21/19 22:42 06/21/19 22:42 06/21/19 22:42 06/21/19 22:42 06/21/19 22:42 - Physical Exam General Appearance: Yes: Appropriately Dressed Respiratory/Chest: positive: Lungs Clear, Normal Breath Sounds Cardiovascular: positive: Regular Rhythm, Regular Rate Gastrointestinal/Abdominal: positive: Normal Bowel Sounds, Tender (RUQ pain), Soft Extremity: positive: Normal Capillary Refill, Normal Inspection, Normal Range of Motion Integumentary: positive: Normal Color, Dry, Warm Neurologic: positive: Fully Oriented, Alert Heart Score/ECG Review - ECG Intrepretation Rhythm: Regular Rhythm Comment:: 06/22/19 02:23 NSR: 90 bpm ED Treatment Course - LABORATORY CBC & Chemistry Diagram: 06/22/19 00:05 06/22/19 00:05 Medical Decision Making - Medical Decision Making 06/22/19 00:07 A: RUQ pain P: labs EKG patient signed out to Dr. Bermudez/ Jerry abdominal US 06/22/19 03:05 d- dimer elevated. no respiratory symptoms + hartley signs. will defer further testing 06/22/19 03:18 Ultrasound: Multiple small gallstones are noted in the gallbladder. No gallbladder wall thickening or pericholecystic fluid. No CBD 3.2cm. Liver fatty borderline enlarged. patient is still with significant pain, unable to tolerate PO. will admit for intractable pain, elevated LFTs 06/22/19 04:20 06/22/19 04:[address] Rocha. reports that he will consult for this case 06/22/19 04:34 Discharge - Discharge Information Problems reviewed: Yes Clinical Impression/Diagnosis: Symptomatic cholelithiasis, Elevated LFTs Abdominal pain Qualifiers: Abdominal location: right upper quadrant Qualified Code(s): R10.11 - Right upper quadrant pain Leukocytosis Qualifiers: Leukocytosis type: unspecified Qualified Code(s): D72.829 - Elevated white blood cell count, unspecified - Admission Yes - Follow up/Referral - Patient Discharge Instructions - Post Discharge Activity
[2019-06-21] MEDS ORDERED: SODIUM CHLORIDE 1,000 ML IV STA (23:44)
[2019-06-21] MEDS ORDERED: ONDANSETRON 4 MG/2 ML VIAL IVPUSH ONE (23:45)
[2019-06-21] MEDS ORDERED: HYDROmorphone HCL CARPU-JECT 2 MG/1 ML DISP.SYRIN IVPB ONE (23:46)
[2019-06-21] MEDS ORDERED: HYDROmorphone HCl 2 MG/ML VIAL ONE (23:56)
[2019-06-21] MEDS ORDERED: ONDANSETRON 4 MG/2 ML VIAL ONE (23:56)
[2019-06-22] MEDS ORDERED: METOCLOPRAMIDE HCL INJECTION 10 MG/2 ML VIAL ONE (00:32)
[2019-06-22] MEDS ORDERED: METOCLOPRAMIDE HCL INJECTION 10 MG/2 ML VIAL IVPB ONE (00:39)
[2019-06-22 00:44] LABS: BASO % 0.1 % (0-2.0); EOS % 1.6 % (0-4.5); HEMATOCRIT 40.3 % (32.4-45.2); HEMOGLOBIN 13.1 GM/dL (10.7-15.3); LYMPH % 13.5 % (8-40); MCH 30.7 pg (25.7-33.7); MCHC 32.4 g/dl (32.0-36.0); MEAN CELL VOLUME 94.8 fl (80-96); MEAN PLT VOLUME 8.4 fl (7.5-11.1); MONO % 5.1 % (3.8-10.2); NEUT % 79.7 % (42.8-82.8); PLATELET COUNT 339 K/MM3 (134-434); RBC 4.25 M/mm3 (3.60-5.2); RDW 12.1 % (11.6-15.6); WHITE BLOOD COUNT 14.6 K/mm3 (4.0-10.0)
[2019-06-22 00:56] LABS: URINE APPEARANCE CLEAR; URINE BILIRUBIN NEGATIVE (NEGATIVE); URINE COLOR YELLOW; URINE GLUCOSE (UA) NEGATIVE (NEGATIVE); URINE KETONE NEGATIVE (NEGATIVE); URINE LEUK ESTERASE NEGATIVE (NEGATIVE); URINE NITRITE NEGATIVE (NEGATIVE); URINE PROTEIN NEGATIVE (NEGATIVE)
[2019-06-22 01:12] LABS: ALBUMIN 3.8 g/dl (3.4-5.0); BILIRUBIN,TOTAL 0.7 mg/dL (0.2-1); BLOOD UREA NITROGEN 14.6 mg/dL (7-18); CALCIUM 9.2 mg/dL (8.5-10.1); CREATININE 0.8 mg/dL (0.55-1.3); POTASSIUM 3.7 mmol/L (3.5-5.1); TOT PROT 7.8 g/dl (6.4-8.2)
[2019-06-22] MEDS ORDERED: HYDROmorphone HCL CARPU-JECT 2 MG/1 ML DISP.SYRIN IVPB ONE (02:24)
[2019-06-22] MEDS ORDERED: ONDANSETRON 4 MG/2 ML VIAL IVPUSH ONE (02:24)
[2019-06-22] MEDS ORDERED: ONDANSETRON 4 MG/2 ML VIAL ONE (02:25)
[2019-06-22] MEDS ORDERED: HYDROmorphone HCl 2 MG/ML VIAL ONE (02:30)
[2019-06-22] MEDS: SODIUM CHLORIDE 1,000 ML IV SCH (03:20)
[2019-06-22] MEDS ORDERED: KETOROLAC TROMETHAMINE 15 MG/ML VIAL IVPUSH ONE (03:33)
[2019-06-22] MEDS ORDERED: FAMOTIDINE 20 MG/50 ML IVPB 20 MG/50 ML MG IVPB ONE ×2 (03:33→03:39)
[2019-06-22] MEDS ORDERED: KETOROLAC TROMETHAMINE 15 MG/ML VIAL ONE (03:39)
--- NOTE | 2019-06-22 04:00 | PN ---
Teaching Attending Note Name of Resident: Dilia Bautista ATTENDING PHYSICIAN STATEMENT I saw and evaluated the patient. I reviewed the resident's note and discussed the case with the resident. I agree with the resident's findings and plan as documented. SUBJECTIVE: Patient is a 23 year old woman with PMH of Asthma, Gall stones, Genital herpes and ( 3 months ago) presenting to the ER with complaint of RUQ pain and vomiting starting about 6 hours prior to arrival in the ER. Pain is severe and radiates to the right flank. The pain started 3-4 hours after the patient ate potato and tuna (canned) made by her grandmother earlier that day. The abdominal pain was intermittent initially then became constant yesterday. She vomited clear liquid several times and continued to vomit while in the ER. No other person became sick after eating the potato and tuna. Pain also persisted while in the ER despite analgesics. She had a similar pain - but less intense during her . No history of GI pathology before and has not seen her period since her . Not on control and is not sexually active. Has headache. Denies fever, chills, chest pain, SOB, dysuria, frequency or urgency. Unemployed. No recent travel or sick contacts. Denies smoking, alcohol or illicit drug use. Has FH of DM. OBJECTIVE: Alert and obese Vital Signs Period Temp Pulse Resp BP Sys/Talbert Pulse Ox Last 24 Hr 97.8 F-98.1 F 93-100 17-18 105-119/54-65 97-100 HEENT: No Jaundice, eye redness or discharge, PERRLA, EOMI. Normocephalic, atraumatic. External ears are normal and hearing is grossly intact. No nasal discharge. Neck: Supple, nontender. No palpable adenopathy or thyromegaly. No JVD Chest: Good effort. Clear to auscultation and percussion. Heart: Regular. No S3, rub or murmur Abdomen: Not distended, soft, RUQ tenderness and no HSM. No rebound or guarding. Normal bowel sounds. Ext: Peripheral pulses intact. No leg edema. Skin: Warm and dry. No petechiae, rash or ecchymosis. Neuro: Alert. Oriented x3. CN 2-12 grossly intact. Sensation grossly intact in all four extremities and DTR are symmetric. Psych: Appropriate mood and affect. Good insight. Current Medications Generic Name Dose Route Start Last Admin Trade Name Dyllan PRN Reason Stop Dose Admin Sodium Chloride 1,000 mls @ 125 mls/hr 06/22/19 03:15 06/22/19 03:20 Normal Saline - IV 125 mls/hr ASDIR BEVERLEY Administration Home Medications Medication Instructions Recorded NK [No Known Home Medication] 06/22/19 Abnormal Lab Results 06/22/19 06/22/19 06/22/19 00:05 00:05 00:05 WBC 14.6 H Absolute Neuts (auto) 11.7 H D-Dimer 643 H AST 122 H ALT 95 H Alkaline Phosphatase 147 H ASSESSMENT AND PLAN: 1. Abdominal pain syndrome - Sonogram of RUQ shows small gallstones and no evidence of cholecystitis. Though afebrile, with leukocytosis and elevated LFTs , will do blood cultures and treat with IV Zosyn for possible cholangitis. No acute abnormality on CXR. EKG is NSR with no significant ST-T wave changes and prolonged QTc. Will get CT abdomen/pelvis with IV and PO contrast. Get urine toxicology. Treat with IV morphine, IV compazine, IV NS, get rectal temperature and repeat CBC. Consult GI. Will continue comprehensive care for all of patient s comorbid conditions. 2. Obesity Counseled on the risks associated with obesity. Will provide patient all the necessary assistance, counseling and positive reinforcement to facilitate weight loss. Consult horticulture supervisor. 3. DVT prophylaxis - Lovenox 40 mg SQ q 12 hours. 4. Advance directives - Full code
[2019-06-22] MEDS ORDERED: PIPERACILLIN/TAZOB 3.375 GM 3.375 GM in DEXTROSE 5%-WATER - 50 ML IVPB ONE (04:13)
[2019-06-22] MEDS ORDERED: SODIUM CHLORIDE 1,000 ML IV STA (04:33)
--- NOTE | 2019-06-22 05:36 | HP ---
CHIEF COMPLAINT: abdominal with nausea and vomiting PCP: unknown HISTORY OF PRESENT ILLNESS: 23 y/o F with PMH of asthma who presented to the ED complaining of RUQ pain radiating to the right flank pain around 5-6 pm yesterday . Pt explained that the pain started 3-4 hours after the patient ate potato and tuna (canned) made by her grandmother earlier that day. The abdominal pain was intermittent initially then became constant yesterday. Her last episode of similar pain was during her for which no intervention was performed at the time.While in the ED, the patient continued to feel nauseous and had multiple episodes ( about 12 episodes) of NBNB vomiting. Pt had a cal colored bowel movement in the ED and dark urine. Pt endorsed subjective fevers but afebrile on documented vital signs. On further questioning, pt mentioned 3 months of amenorrhea and denied recent sexual encounter( last was with her in October) and use of oral contraception post . Pt recently started smoking, about 3 weeks ago due to stress of new baby, newly paralyzed. ER course was notable for: (1)cbc remarkable for leukocytosis, CMP remarkable for transaminitis. EKG QTC prolongation (2) U/S of the abdomen positive for gallstones but no pericholecystic fluid or GB wall thickening (3) neg UA and urine test. Zofran, reglan, toredol and dilaudid for N/ V and pain control Recent Travel: none PAST MEDICAL HISTORY: as noted above PAST SURGICAL HISTORY: appendectomy, tonsillectomy, Social History: Smoking: recently started smoking ( 3 weeks ago but will stop after counseling) Alcohol:denies Drugs: denies Allergies No Known Allergies Allergy (Verified 06/21/19 22:45) HOME MEDICATIONS: Home Medications Medication Instructions Recorded NK [No Known Home Medication] 06/22/19 REVIEW OF SYSTEMS CONSTITUTIONAL: fever Absent: chills, diaphoresis, generalized weakness, malaise, loss of appetite, weight change HEENT: nasal congestion Absent: rhinorrhea , throat pain, throat swelling, difficulty swallowing, mouth swelling, ear pain, eye pain, visual changes CARDIOVASCULAR: Absent: chest pain, syncope, palpitations, irregular heart rate, lightheadedness , peripheral edema RESPIRATORY: Absent: cough, shortness of breath, dyspnea with exertion, orthopnea, wheezing, stridor, hemoptysis GASTROINTESTINAL:abdominal pain, nausea, vomiting Absent: abdominal distension,, diarrhea, constipation, melena, hematochezia GENITOURINARY: Absent: dysuria, frequency, urgency, hesitancy, hematuria, flank pain, genital pain MUSCULOSKELETAL: Absent: myalgia, arthralgia, joint swelling, back pain, neck pain SKIN: Absent: rash, itching, pallor HEMATOLOGIC/IMMUNOLOGIC: Absent: easy bleeding, easy bruising, lymphadenopathy, frequent infections ENDOCRINE: Absent: unexplained weight gain, unexplained weight loss, heat intolerance, cold intolerance NEUROLOGIC: Absent: headache, focal weakness or paresthesias, dizziness, unsteady gait, seizure, mental status changes, bladder or bowel incontinence PSYCHIATRIC: Absent: anxiety, depression, suicidal or homicidal ideation, hallucinations. PHYSICAL EXAMINATION Vital Signs - 24 hr 06/21/19 06/22/19 22:42 04:02 Temperature 97.8 F 98.1 F Pulse Rate 100 H Pulse Rate [ 93 H Right Radial] Respiratory 17 18 Rate Blood Pressure 119/65 Blood Pressure 105/54 L [Right Arm] O2 Sat by Pulse 100 97 Oximetry (%) GENERAL: Awake, alert, and fully oriented, in mod distress. HEAD: Normal with no signs of trauma. EYES: Pupils equal, round and reactive to light, extraocular movements intact, sclera anicteric, conjunctiva clear. No lid lag. EARS, NOSE, THROAT: oropharynx clear without exudates. Moist mucous membranes. NECK: Normal range of motion, supple without lymphadenopathy, JVD, or masses. LUNGS: Breath sounds equal, clear to auscultation bilaterally. No wheezes, and no crackles. No accessory muscle use. HEART: Regular rate and rhythm, normal S1 and S2 without murmur, rub or gallop. ABDOMEN: Soft, RUQ tenderness, not distended, normoactive bowel sounds, no guarding, no rebound, no masses. No hepatomegaly or splenomegaly. MUSCULOSKELETAL: No CVA tenderness. UPPER EXTREMITIES: 2+ pulses, warm, well-perfused. No cyanosis. No clubbing. No peripheral edema. LOWER EXTREMITIES: 2+ pulses, warm, well-perfused. No calf tenderness. No peripheral edema. PSYCHIATRIC: Cooperative. Good eye contact. Appropriate mood and affect. SKIN: Warm, dry, normal turgor, no rashes or lesions noted, normal capillary refill. Laboratory Results - last 24 hr 06/22/19 06/22/19 06/22/19 00:05 00:05 00:05 WBC 14.6 H RBC 4.25 Hgb 13.1 Hct 40.3 D MCV 94.8 MCH 30.7 MCHC 32.4 RDW 12.1 Plt Count 339 D MPV 8.4 Absolute Neuts (auto) 11.7 H Neutrophils % 79.7 D Lymphocytes % 13.5 D Monocytes % 5.1 Eosinophils % 1.6 Basophils % 0.1 Nucleated RBC % 0 D-Dimer 643 H Sodium 138 Potassium 3.7 Chloride 102 Carbon Dioxide 29 Anion Gap 8 BUN 14.6 Creatinine 0.8 Est GFR (CKD-EPI)AfAm 120.44 Est GFR (CKD-EPI)NonAf 103.92 Random Glucose 97 Calcium 9.2 Total Bilirubin 0.7 AST 122 H ALT 95 H Alkaline Phosphatase 147 H Total Protein 7.8 Albumin 3.8 Lipase 131 Urine Color Urine Appearance Urine pH Ur Specific [place] Urine Protein Urine Glucose (UA) Urine Ketones Urine Blood Urine Nitrite Urine Bilirubin Urine Urobilinogen Ur Leukocyte Esterase Urine HCG, Qual 06/22/19 06/22/19 00:33 00:33 WBC RBC Hgb Hct MCV MCH MCHC RDW Plt Count MPV Absolute Neuts (auto) Neutrophils % Lymphocytes % Monocytes % Eosinophils % Basophils % Nucleated RBC % D-Dimer Sodium Potassium Chloride Carbon Dioxide Anion Gap BUN Creatinine Est GFR (CKD-EPI)AfAm Est GFR (CKD-EPI)NonAf Random Glucose Calcium Total Bilirubin AST ALT Alkaline Phosphatase Total Protein Albumin Lipase Urine Color Yellow Urine Appearance Clear Urine pH 7.0 Ur Specific [place] 1.027 Urine Protein Negative Urine Glucose (UA) Negative Urine Ketones Negative Urine Blood Negative Urine Nitrite Negative Urine Bilirubin Negative Urine Urobilinogen 1.0 Ur Leukocyte Esterase Negative Urine HCG, Qual Negative ASSESSMENT/PLAN: 23 y/o F with PMH of asthma who presented to the ED complaining of RUQ pain radiating to the right flank pain around 5-6 pm yesterday associated with nausea, vomiting admitted for further evaluation of biliary disease. RUQ abdominal pain 2/2 cholelithiasis/cholecystitis/cholangitis with passage of stone since CBD is 4mm Pt is afebrile NPO until surgical and GI evaluation NS@125cc/h after 2 rapidly infused NS bags zosyn for infection coverage sepsis workup sent with blood cultures and lactic acid WBC was 14.6 pending repeat this am rectal temp for more accurate fever assessment morphine 2mg Q4h for pain control. avoid tylenol due to transaminitis GI consult- Dr Dickens consulted Surgical consult- Dr Allen consulted serum if negative, CT a/p with IV and oral contrast for further eval of abdomen utox DVT lovenox 40 Q12h Visit type - Emergency Visit Emergency Visit: Yes ED Registration Date: 06/22/19 Care time: The patient presented to the Emergency Department on the above date and was hospitalized for further evaluation of their emergent condition. - New Patient This patient is new to me today: Yes Date on this admission: 06/22/19 - Critical Care Critical Care patient: No ATTENDING PHYSICIAN STATEMENT I saw and evaluated the patient. I reviewed the resident's note and discussed the case with the resident. I agree with the resident's findings and plan as documented. SUBJECTIVE: OBJECTIVE: ASSESSMENT AND PLAN:
[2019-06-22] MEDS ORDERED: HEPARIN NA (PORCINE) 5,000 UNITS/ML 1ML VIAL SQ SCH (06:00)
[2019-06-22] MEDS ORDERED: MORPHINE SULFATE 2 MG/ML VIAL IVPUSH PRN (06:04)
[2019-06-22] MEDS ORDERED: PROCHLORPERAZINE INJECTION 10 MG/2 ML VIAL IVPB PRN (06:09)
[2019-06-22] MEDS ORDERED: IBUPROFEN 800 MG/8 ML IJ IVPB ONE ×2 (06:15→06:39)
[2019-06-22] MEDS ORDERED: MORPHINE SULFATE 2 MG/ML VIAL ONE (06:32)
[2019-06-22] MEDS ORDERED: ENOXAPARIN NA (PORCINE) 40 MG/0.4 ML DISP.SYRIN SQ SCH (07:00)
--- NOTE | 2019-06-22 08:39 | DS ---
Physical Exam: SUBJECTIVE: Patient seen and examined OBJECTIVE: Vital Signs Period Temp Pulse Resp BP Sys/Talbert Pulse Ox Last 24 Hr 97.8 F-98.1 F 85-100 17-18 103-119/54-65 97-100 PHYSICAL EXAM GENERAL: The patient is awake, alert, and fully oriented, in no acute distress. HEAD: Normal with no signs of trauma. EYES: PERRL, extraocular movements intact, sclera anicteric, conjunctiva clear. ENT: Ears normal, nares patent, oropharynx clear without exudates, moist mucous membranes. NECK: Trachea midline, full range of motion, supple. LUNGS: Breath sounds equal, clear to auscultation bilaterally, no wheezes, no crackles, no accessory muscle use. HEART: Regular rate and rhythm, S1, S2 without murmur, rub or gallop. ABDOMEN: Soft, nontender, nondistended, normoactive bowel sounds, no guarding, no rebound, no hepatosplenomegaly, no masses. EXTREMITIES: 2+ pulses, warm, well-perfused, no edema. NEUROLOGICAL: Cranial nerves II through XII grossly intact. Normal speech, gait not observed. PSYCH: Normal mood, normal affect. SKIN: Warm, dry, normal turgor, no rashes or lesions noted. LABS Laboratory Results - last 24 hr 06/22/19 06/22/19 06/22/19 00:05 00:05 00:05 WBC 14.6 H RBC 4.25 Hgb 13.1 Hct 40.3 D MCV 94.8 MCH 30.7 MCHC 32.4 RDW 12.1 Plt Count 339 D MPV 8.4 Absolute Neuts (auto) 11.7 H Neutrophils % 79.7 D Lymphocytes % 13.5 D Monocytes % 5.1 Eosinophils % 1.6 Basophils % 0.1 Nucleated RBC % 0 D-Dimer 643 H Sodium 138 Potassium 3.7 Chloride 102 Carbon Dioxide 29 Anion Gap 8 BUN 14.6 Creatinine 0.8 Est GFR (CKD-EPI)AfAm 120.44 Est GFR (CKD-EPI)NonAf 103.92 Random Glucose 97 Lactic Acid Calcium 9.2 Total Bilirubin 0.7 AST 122 H ALT 95 H Alkaline Phosphatase 147 H Total Protein 7.8 Albumin 3.8 Lipase 131 Urine Color Urine Appearance Urine pH Ur Specific [place] Urine Protein Urine Glucose (UA) Urine Ketones Urine Blood Urine Nitrite Urine Bilirubin Urine Urobilinogen Ur Leukocyte Esterase Urine HCG, Qual 06/22/19 06/22/19 06/22/19 00:33 00:33 04:40 WBC RBC Hgb Hct MCV MCH MCHC RDW Plt Count MPV Absolute Neuts (auto) Neutrophils % Lymphocytes % Monocytes % Eosinophils % Basophils % Nucleated RBC % D-Dimer Sodium Potassium Chloride Carbon Dioxide Anion Gap BUN Creatinine Est GFR (CKD-EPI)AfAm Est GFR (CKD-EPI)NonAf Random Glucose Lactic Acid 2.0 Calcium Total Bilirubin AST ALT Alkaline Phosphatase Total Protein Albumin Lipase Urine Color Yellow Urine Appearance Clear Urine pH 7.0 Ur Specific [place] 1.027 Urine Protein Negative Urine Glucose (UA) Negative Urine Ketones Negative Urine Blood Negative Urine Nitrite Negative Urine Bilirubin Negative Urine Urobilinogen 1.0 Ur Leukocyte Esterase Negative Urine HCG, Qual Negative Active Medications Sodium Chloride (Normal Saline -) 1,000 mls @ 125 mls/hr IV ASDIR BEVERLEY Last Admin: 06/22/19 03:20 Dose: 125 mls/hr Ibuprofen (Motrin -) 600 mg PO Q6H PRN PRN Reason: PAIN LEVEL 4 - 6 Morphine Sulfate (Morphine Sulfate) 2 mg IVPUSH Q6H PRN PRN Reason: PAIN LEVEL 7 - 10 Prochlorperazine Edisylate (Compazine Injection -) 10 mg IVPB Q4H PRN PRN Reason: NAUSEA AND/OR VOMITING Imaging: HOSPITAL COURSE: Date of Admission:06/22/19 Date of Discharge: 06/22/19 <Kei Maria - Last Filed: 06/22/19 08:45> Physical Exam: SUBJECTIVE: Patient seen and examined OBJECTIVE: Vital Signs Period Temp Pulse Resp BP Sys/Talbert Pulse Ox Last 24 Hr 97.8 F-98.9 F 82-100 17-18 103-133/54-75 97-100 PHYSICAL EXAM GENERAL: The patient is awake, alert, and fully oriented, in no acute distress. HEAD: Normal with no signs of trauma. EYES: PERRL, extraocular movements intact, sclera anicteric, conjunctiva clear. ENT: Ears normal, nares patent, oropharynx clear without exudates, moist mucous membranes. NECK: Trachea midline, full range of motion, supple. LUNGS: Breath sounds equal, clear to auscultation bilaterally, no wheezes, no crackles, no accessory muscle use. HEART: Regular rate and rhythm, S1, S2 without murmur, rub or gallop. ABDOMEN: Soft, nontender, nondistended, normoactive bowel sounds, no guarding, no rebound, no hepatosplenomegaly, no masses. EXTREMITIES: 2+ pulses, warm, well-perfused, no edema. NEUROLOGICAL: Cranial nerves II through XII grossly intact. Normal speech, gait not observed. PSYCH: Normal mood, normal affect. SKIN: Warm, dry, normal turgor, no rashes or lesions noted. LABS Laboratory Results - last 24 hr 06/22/19 06/22/19 06/22/19 00:05 00:05 00:05 WBC 14.6 H RBC 4.25 Hgb 13.1 Hct 40.3 D MCV 94.8 MCH 30.7 MCHC 32.4 RDW 12.1 Plt Count 339 D MPV 8.4 Absolute Neuts (auto) 11.7 H Neutrophils % 79.7 D Lymphocytes % 13.5 D Monocytes % 5.1 Eosinophils % 1.6 Basophils % 0.1 Nucleated RBC % 0 D-Dimer 643 H Sodium 138 Potassium 3.7 Chloride 102 Carbon Dioxide 29 Anion Gap 8 BUN 14.6 Creatinine 0.8 Est GFR (CKD-EPI)AfAm 120.44 Est GFR (CKD-EPI)NonAf 103.92 Random Glucose 97 Lactic Acid Calcium 9.2 Phosphorus Magnesium Total Bilirubin 0.7 AST 122 H ALT 95 H Alkaline Phosphatase 147 H Total Protein 7.8 Albumin 3.8 Lipase 131 TSH Serum , Qual Urine Color Urine Appearance Urine pH Ur Specific [place] Urine Protein Urine Glucose (UA) Urine Ketones Urine Blood Urine Nitrite Urine Bilirubin Urine Urobilinogen Ur Leukocyte Esterase Urine HCG, Qual 06/22/19 06/22/19 06/22/19 00:33 00:33 04:40 WBC RBC Hgb Hct MCV MCH MCHC RDW Plt Count MPV Absolute Neuts (auto) Neutrophils % Lymphocytes % Monocytes % Eosinophils % Basophils % Nucleated RBC % D-Dimer Sodium Potassium Chloride Carbon Dioxide Anion Gap BUN Creatinine Est GFR (CKD-EPI)AfAm Est GFR (CKD-EPI)NonAf Random Glucose Lactic Acid 2.0 Calcium Phosphorus Magnesium Total Bilirubin AST ALT Alkaline Phosphatase Total Protein Albumin Lipase TSH Serum , Qual Urine Color Yellow Urine Appearance Clear Urine pH 7.0 Ur Specific [place] 1.027 Urine Protein Negative Urine Glucose (UA) Negative Urine Ketones Negative Urine Blood Negative Urine Nitrite Negative Urine Bilirubin Negative Urine Urobilinogen 1.0 Ur Leukocyte Esterase Negative Urine HCG, Qual Negative 06/22/19 06/22/19 06/22/19 09:50 09:50 09:50 WBC 9.8 RBC 3.61 Hgb 11.3 Hct 34.2 D MCV 94.7 MCH 31.3 MCHC 33.0 RDW 12.2 Plt Count 301 MPV 8.1 Absolute Neuts (auto) 7.1 Neutrophils % 72.6 Lymphocytes % 20.0 D Monocytes % 6.0 Eosinophils % 1.3 Basophils % 0.1 Nucleated RBC % 0 D-Dimer Sodium 140 Potassium 3.9 Chloride 108 H Carbon Dioxide 26 Anion Gap 7 L BUN 10.8 Creatinine 0.6 Est GFR (CKD-EPI)AfAm 148.90 Est GFR (CKD-EPI)NonAf 128.48 Random Glucose 102 Lactic Acid Calcium 8.1 L Phosphorus 3.1 Magnesium 1.8 Total Bilirubin 0.8 AST 92 H ALT 115 H Alkaline Phosphatase 125 H Total Protein 6.5 Albumin 3.2 L Lipase TSH 1.51 Serum , Qual Negative Urine Color Urine Appearance Urine pH Ur Specific [place] Urine Protein Urine Glucose (UA) Urine Ketones Urine Blood Urine Nitrite Urine Bilirubin Urine Urobilinogen Ur Leukocyte Esterase Urine HCG, Qual HOSPITAL COURSE: Date of Admission:06/22/19 Date of Discharge: 06/22/19 <Thor Morales - Last Filed: 06/22/19 11:11> Discharge Summary Problems reviewed: Yes Reason For Visit: SYMPTOMATIC CHOLELITHIASIS,ELEVATED LIVER FUNCTION Current Active Problems Abdominal pain (Acute) Elevated LFTs (Acute) Leukocytosis (Acute) Symptomatic cholelithiasis (Acute) - Home Medications Comprehensive Discharge Medication List: Ambulatory Orders NK [No Known Home Medication] 06/22/19 <Kei Maria - Last Filed: 06/22/19 08:45> Current Active Problems Abdominal pain (Acute) Elevated LFTs (Acute) Leukocytosis (Acute) Symptomatic cholelithiasis (Acute) - Home Medications Comprehensive Discharge Medication List: Ambulatory Orders NK [No Known Home Medication] 06/22/19 <Thor Morales - Last Filed: 06/22/19 11:11> Condition: Improved - Instructions Referrals: Ho Chang MD [Staff Physician] - Chung Ruiz MD [Staff Physician] - 2 Weeks (Sleep apena) Zia Barrientos DO [Staff Physician] - Pk Allen MD [Staff Physician] - Disposition: HOME ATTENDING PHYSICIAN STATEMENT I saw and evaluated the patient. I reviewed the resident's note and discussed the case with the resident. I agree with the resident's findings and plan as documented. SUBJECTIVE: OBJECTIVE: ASSESSMENT AND PLAN: <Kei Maria - Last Filed: 06/22/19 08:45> ATTENDING PHYSICIAN STATEMENT I saw and evaluated the patient. I reviewed the resident's note and discussed the case with the resident. I agree with the resident's findings and plan as documented. SUBJECTIVE: OBJECTIVE: ASSESSMENT AND PLAN: <Thor Morales - Last Filed: 06/22/19 11:11>
[2019-06-22] MEDS: MORPHINE SULFATE 2 MG/ML VIAL IVPUSH PRN ×2 (09:25→14:16)
--- NOTE | 2019-06-22 09:58 | EKG ---
Test Reason : Blood Pressure : / mmHG Vent. Rate : 090 BPM Atrial Rate : 090 BPM P-R Int : 142 ms QRS Dur : 088 ms QT Int : 380 ms P-R-T Axes : 078 087 039 degrees QTc Int : 464 ms NORMAL SINUS RHYTHM NORMAL ECG WHEN COMPARED WITH ECG OF 14-JAN-2018 18:17, QT HAS LENGTHENED Confirmed by MAKAYLA ESTRADA, BHUMIKA ([id number]) on 06/22/2019 9:58:34 AM Referred By: Confirmed By:BHUMIKA BENAVIDES MD
[2019-06-22 10:08] LABS: BASO % 0.1 % (0-2.0); EOS % 1.3 % (0-4.5); HEMATOCRIT 34.2 % (32.4-45.2); HEMOGLOBIN 11.3 GM/dL (10.7-15.3); MCH 31.3 pg (25.7-33.7); MEAN CELL VOLUME 94.7 fl (80-96); MEAN PLT VOLUME 8.1 fl (7.5-11.1); NEUT % 72.6 % (42.8-82.8); PLATELET COUNT 301 K/MM3 (134-434); RBC 3.61 M/mm3 (3.60-5.2); RDW 12.2 % (11.6-15.6); WHITE BLOOD COUNT 9.8 K/mm3 (4.0-10.0)
[2019-06-22 10:44] LABS: ALBUMIN 3.2 g/dl (3.4-5.0); BILIRUBIN,TOTAL 0.8 mg/dL (0.2-1); BLOOD UREA NITROGEN 10.8 mg/dL (7-18); CALCIUM 8.1 mg/dL (8.5-10.1); CREATININE 0.6 mg/dL (0.55-1.3); MAGNESIUM 1.8 mg/dL (1.8-2.4); PHOSPHOROUS 3.1 mg/dL (2.5-4.9); POTASSIUM 3.9 mmol/L (3.5-5.1); TOT PROT 6.5 g/dl (6.4-8.2)
[2019-06-22] MEDS: IBUPROFEN 600 MG TABLET (FP) PO PRN (11:37)
--- NOTE | 2019-06-22 12:13 | CON.GI ---
Consult Consult Specialty:: Gastrenterology Referred by:: Dr. Morales - History of Present Illness Chief Complaint: Abdominal pain History of Present Illness: 23yo female presenting with RUQ pain x 2 days with imaging revealing gallstones. Pt reports developing severe RUQ pain 2 days ago described as sharp with radiation towards right flank. Pt ate tuna salad 4-5 hours prior to episode. Pt reporting associated nausea and vomiting with persisting pain prompting ED evaluation. Denies fever/chills or change in bowel pattern. Denies etoh, recreational drug use or NSAIDs. Reports similar episodes 4-5 years ago ocurring intermittently and resolving spontaneously, most recent episode approximately 1 month ago after delivery of first child in 03/2019. - History Source History Provided By: Patient Limitations to Obtaining History: No Limitations - Past Medical History ...LMP: 12/02/17 Infectious Disease: Yes: STD's (hx of multiple HSV out breaks) - Alcohol/Substance Use Hx Alcohol Use: No History of Substance Use: reports: None - Smoking History Smoking history: Current every day smoker Have you smoked in the past 12 months: Yes Aproximately how many cigarettes per day: 1 If you are a former smoker, when did you quit?: 08/17 - Social History History of Recent Travel: No Home Medications - Allergies Allergies/Adverse Reactions: Allergies Allergy/AdvReac Type Severity Reaction Status Date / Time No Known Allergies Allergy Verified 06/21/19 22:45 - Home Medications Home Medications: Ambulatory Orders NK [No Known Home Medication] 06/22/19 Review of Systems - Review of Systems Constitutional: reports: No Symptoms Cardiovascular: reports: No Symptoms Respiratory: reports: No Symptoms Gastrointestinal: reports: Abdominal Pain Physical Exam-GI Vital Signs: Vital Signs Temperature 98.9 F 06/22/19 09:39 Pulse Rate 82 06/22/19 09:39 Respiratory Rate 18 06/22/19 09:39 Blood Pressure 133/75 06/22/19 09:39 O2 Sat by Pulse Oximetry (%) 97 06/22/19 04:02 Constitutional: Yes: Well Nourished, No Distress, Calm Cardiovascular: Yes: WNL, Regular Rate and Rhythm Respiratory: Yes: WNL, Regular, CTA Bilaterally ...Palpate: Yes: Other (Abd soft, tender on palpation in RUQ, negative murphys sign on exam, nondistended, no rebound, guarding or rigidity) Labs: CBC, BMP 06/22/19 09:50 06/22/19 09:50 Imaging - Results Ultrasound: Report Reviewed Problem List - Problems (1) Abdominal pain Assessment/Plan: 23yo female presenting with RUQ pain x 2 days with associated nausea/vomiting and elevated LFTs. Intermittent self resolving episodes noted over the past few years. US revealing gallstones with positive murphys sign per admission discharge rn. No biliary dilation. LFTs were normal in 08/2017. Likely biliary colic, less likely cholecystitis though cannot exclude vs passed stone. T bili and lipase normal. No evidence of cholangitis with no indication for ERCP currently. -Continue to closely monitor LFTs -Consider HIDA scan to further evaluate r/o cholecystitis -Avoid fatty foods -If bili increases would recommend MRCP at that time to evaluate for CBD stones -Surgery consultation Code(s): R10.9 - UNSPECIFIED ABDOMINAL PAIN Qualifiers: Abdominal location: right upper quadrant Qualified Code(s): R10.11 - Right upper quadrant pain
[2019-06-22] MEDS ORDERED: PT OWN MED DRAWER 7, Y5N ONE (12:40)
[2019-06-23] MEDS: SODIUM CHLORIDE 1,000 ML IV SCH ×2 (06:17→13:50)
[2019-06-23] MEDS: IBUPROFEN 600 MG TABLET (FP) PO PRN ×2 (06:17→13:49)
--- NOTE | 2019-06-23 08:22 | PN ---
Progress Note (short form) - Note Progress Note: THIS NOTE IS FOR 06/22/19 0800H PRIOR NOTE WAS CANCELLED IN ERROR DUE TO COMPUTING ERROR HPI: Pt complains of continued abdominal pain without any significant vomiting or nausea. Pt still remains without hunger or thirst PE: Gen: NAD, awake, alert, oriented x3 HEENT: NC/AT, PEALR, sclera anicteric, no jaundice, MMM LUNG: CTA b/l no wheezes or rales CARD: RRR no murmurs ABD: Soft, slightly TTP diffusely with increased pain in RUQ, nondistended, normoactive BS, no hepatomegaly, no guarding, no rebound EXT: no edema. peripheral pulses intact Active Medications Sodium Chloride (Normal Saline -) 1,000 mls @ 125 mls/hr IV ASDIR BEVERLEY Last Admin: 06/23/19 06:17 Dose: 125 mls/hr Ibuprofen (Motrin -) 600 mg PO Q6H PRN PRN Reason: PAIN LEVEL 4 - 6 Last Admin: 06/23/19 06:17 Dose: 600 mg Morphine Sulfate (Morphine Sulfate) 2 mg IVPUSH Q6H PRN PRN Reason: PAIN LEVEL 7 - 10 Last Admin: 06/22/19 14:16 Dose: 2 mg Prochlorperazine Edisylate (Compazine Injection -) 10 mg IVPB Q4H PRN PRN Reason: NAUSEA AND/OR VOMITING Last Admin: 06/22/19 12:41 Dose: 10 mg Microbiology 06/22/19 04:40 Blood - Peripheral Venous Blood Culture - Preliminary NO GROWTH OBTAINED AFTER 24 HOURS, INCUBATION TO CONTINUE FOR 4 DAYS. 06/22/19 04:40 Blood - Peripheral Venous Blood Culture - Preliminary NO GROWTH OBTAINED AFTER 24 HOURS, INCUBATION TO CONTINUE FOR 4 DAYS. Assessment and Plan: Intractable abdominal pain R/o choledocolithiasis Mild intermittent asthma, not in exacerbatoin Prolonged QTc --GI consultation appreciated --HIDA scan ordered for r/o of continued obstruction of biliary tree --Will f/u --Pain control with Motrin 600mg q6h PRN with breakthrough on board --Compazine 10mg q4h PRN for nausea --Advance diet as tolerated by patient; discussed how she should lets us know when she's hungry --Discussed with surgery and if HIDA negative can recall on outpatient basis for elective Cholecystectomy --Instructed on low-fat low dairy diet to avoid worsenin abdominal pain FEN: Fluids: None currently Electrolyte abnormalities: none Nutrition: Advance as tolerated if patient becomes hungry PPX: DVT - SCDs GI - Not indicated Dispo: HIDA scan Case discussed with Dr. Carmen Maria, DO - IM PGY-3 <Kei Maria - Last Filed: 06/23/19 08:25> - Note Progress Note: Resident note reviewed; agree with above as documented aside from as supplemented below. independently verified all exam findings, historical info, labs, and imaging. discussed with consulting services and discussed with resident team in depth. 30 mins spent in the care of this patient. Seen and examined; no new issues noted. She is hungry and requests a diet. She has some abdominal pain that waxes and wanes but no red flag symptoms. 10 sys ROS done and negative aside from HPI HIDA reviewed; no ho obstruction r/o sphincter dysfunction. Cultures reviewed; ngtd VS, labs, imaging reviewed NAD, AAO, resting in bed NC AT EOMI PERRLA HR wnl, no fnd Abd exam reviewed from day of admission with vague R-sided tenderness and no distention; no rebound or guarding with +BS CN2-12wnl, no fnd Normal mood, appropriate behavior BMI is 43 MRCP ordered and is pending A/P: Patient presents with abdominal pain and transaminitis; no cholecystitis on imaging but may have sphincter dysfunction. No CBD dilation but wish to r/o obstruction with MRCP per consulting services Abdominal pain Transaminitis Sphincter dysfunction vs. passed gallstone Morbid Obesity Asthma, mild, not in exacerbation Prolonged QT (avoid meds that exacerbate) Full Code <Thor Morales - Last Filed: 06/24/19 14:10>
--- NOTE | 2019-06-23 08:23 | PN ---
Progress Note (short form) - Note Progress Note: UPDATE: Pt acutely became lightheaded and had blurry vision. CT Head STAT, VS: hypotensive, bolus 1L LR and recheck BP HPI: Pt with continued abdominal pain, however no vomiting at this time. Remains intermittently nauseous with alleviation from medications. Pt feels slightly hungry and thirsty today PE: Gen: NAD, awake, alert, oriented x3 HEENT: NC/AT, PEALR, sclera anicteric, no jaundice, MMM LUNG: CTA b/l no wheezes or rales CARD: RRR no murmurs ABD: Soft, slightly TTP diffusely with increased pain in RUQ, nondistended, normoactive BS, no hepatomegaly, no guarding, no rebound EXT: no edema. peripheral pulses intact CBC, BMP 06/22/19 09:50 06/22/19 09:50 Hepatic Panel Total Bilirubin 0.8 mg/dL (0.2-1) 06/22/19 09:50 AST 92 U/L (15-37) H 06/22/19 09:50 ALT 115 U/L (13-61) H 06/22/19 09:50 Alkaline Phosphatase 125 U/L (45-117) H 06/22/19 09:50 Albumin 3.2 g/dl (3.4-5.0) L 06/22/19 09:50 Active Medications Sodium Chloride (Normal Saline -) 1,000 mls @ 125 mls/hr IV ASDIR BEVERLEY Last Admin: 06/23/19 13:50 Dose: 125 mls/hr Ibuprofen (Motrin -) 600 mg PO Q6H PRN PRN Reason: PAIN LEVEL 4 - 6 Last Admin: 06/23/19 13:49 Dose: 600 mg Morphine Sulfate (Morphine Sulfate) 2 mg IVPUSH Q6H PRN PRN Reason: PAIN LEVEL 7 - 10 Last Admin: 06/22/19 14:16 Dose: 2 mg Microbiology 06/22/19 04:40 Blood - Peripheral Venous Blood Culture - Preliminary NO GROWTH OBTAINED AFTER 24 HOURS, INCUBATION TO CONTINUE FOR 4 DAYS. 06/22/19 04:40 Blood - Peripheral Venous Blood Culture - Preliminary NO GROWTH OBTAINED AFTER 24 HOURS, INCUBATION TO CONTINUE FOR 4 DAYS. Assessment and Plan: Intractable abdominal pain R/o choledocolithiasis Mild intermittent asthma, not in exacerbatoin Prolonged QTc --GI consultation appreciated --HIDA scan revealed poss. CBD obstruction vs. Sphincter of Oddi spasticity --MRCP ordered --If MRCP postive will plan NPO at midnight for potential ERCP --Avoid narcotics due to spasticity --Pain control with Motrin 600mg q6h PRN --Compazine 10mg q4h PRN for nausea --Will advance to clears today until midnight FEN: Fluids: None currently Electrolyte abnormalities: none Nutrition: Clears PPX: DVT - SCDs GI - Not indicated Dispo: MRCP Case discussed with Dr. Carmen Maria, DO - IM PGY-3 <Kei Maria - Last Filed: 06/24/19 00:03> - Note Progress Note: Resident note reviewed; agree with above as documented aside from as supplemented below. independently verified all exam findings, historical info, labs, and imaging. discussed with consulting services and discussed with resident team in depth. 30 mins spent in the care of this patient. Seen and examined; no new issues noted. She is hungry and requests a diet. She has some abdominal pain that waxes and wanes but no red flag symptoms. 10 sys ROS done and negative aside from HPI HIDA reviewed; Cultures reviewed; ngtd MRCP pending-delayed due to issue with MRI scaner VS, labs, imaging reviewed NAD, AAO, resting in bed NC AT EOMI PERRLA HR wnl, no fnd Tenderness improved, ND, +BS CN2-12wnl, no fnd Normal mood, appropriate behavior BMI is 43 MRCP ordered and is pending A/P: Patient presents with abdominal pain and transaminitis; no cholecystitis on imaging but may have sphincter dysfunction. No CBD dilation but wish to r/o obstruction with MRCP per consulting services Abdominal pain Transaminitis Sphincter dysfunction vs. passed gallstone Morbid Obesity Asthma, mild, not in exacerbation Prolonged QT (avoid meds that exacerbate) She is tolerating clears; MRCP pending due to issue with machine. She is stable. She wanted to leave A as she was inpatiet waiting for test but was convinced to stay. GI consult reviewed Dispo pending imaging Will need sleep study <Thor Morales - Last Filed: 06/24/19 14:13>
[2019-06-23] MEDS ORDERED: PROMETHAZINE HCL 25 MG/1 ML VIAL IVPUSH ONE (09:43)
[2019-06-23] MEDS ORDERED: ACETAMINOPHEN 325 MG TABLET (FP) PO ONE (09:44)
[2019-06-23] MEDS ORDERED: PROMETHAZINE HCL 25 MG/1 ML VIAL IVPB ONE (10:30)
[2019-06-23] MEDS ORDERED: LACTATED RINGERS SOLUTION 1,000 ML/1,000 ML INFUS.BAG IV SCH (11:15)
--- NOTE | 2019-06-23 14:24 | PN.GI ---
GI Progress Note Subjective: No acute events Still with RUQ pain HIDA failed to reveal tracer accumulation in the CBD or small bowel Had blurred vision, heeadache and nausea this morning and therefore did not have MRCP as of yet. - Objective Vital Signs: Vital Signs Temperature 97.9 F 06/23/19 09:52 Pulse Rate 85 06/23/19 09:52 Respiratory Rate 18 06/23/19 09:52 Blood Pressure 106/67 06/23/19 09:52 O2 Sat by Pulse Oximetry (%) 97 06/23/19 09:00 Constitutional: Calm Cardiovascular: Yes: Regular Rate and Rhythm Respiratory: Yes: CTA Bilaterally Gastrointestinal Inspection: No: Distention ...Auscultate: Yes: Normoactive Bowel Sounds ...Palpate: Yes: Tenderness (TTP RUQ). No: Hepatomegaly, Splenomegaly ...Percussion: No: Tympanitic Neurological: Yes: Alert Labs: CBC, BMP 06/22/19 09:50 06/22/19 09:50 Hepatic Panel Total Bilirubin 0.8 mg/dL (0.2-1) 06/22/19 09:50 AST 92 U/L (15-37) H 06/22/19 09:50 ALT 115 U/L (13-61) H 06/22/19 09:50 Alkaline Phosphatase 125 U/L (45-117) H 06/22/19 09:50 Albumin 3.2 g/dl (3.4-5.0) L 06/22/19 09:50 Problem List - Problems (1) Elevated LFTs Assessment/Plan: Still with abdominal pain. ? biliary colic, ? passed stone. HIDA scan findings raise question sphincter of oddi spasm vs. CBD obstruction. MRCP is pending With concern of possible retained stone or passage of stone, consider surgical evaluation to discuss inpatient cholecystectomy once biliary tract has been evaluated. Discussed possibility of ERCP with Ms. Real. Discussed potential risks of the procedure like but not limited to bleeding, perforation requiring surgery to repair, infection, sedation medication effects, pancreatitis, all of which could be potentially life threatening. She has agreed to the procedure if clinically indicated. He sisters came in to visit with a bag of Bernard's with the intent of giving this to Ms. Delcid. Just prior to this I was explaining to Ms. Delcid how fatty foods can lead to trigggering of biliary colic and even passed / retained CBD stones. I had advised her sisters of this and thus the rationale for keeping her on a clear liquid diet. About 5 minutes after I left the room Her nurse informed me that her sisters gave her a kittitian tran. I went back in the room and reiterated the medical need for dietary restrictions at this time as fatty foods can worsen her current clinical picture. They apologized. Code(s): R94.5 - ABNORMAL RESULTS OF LIVER FUNCTION STUDIES
[2019-06-24] MEDS: SODIUM CHLORIDE 1,000 ML IV SCH (06:25)
[2019-06-24 07:52] LABS: BASO % 0.2 % (0-2.0); EOS % 5.1 % (0-4.5); HEMATOCRIT 34.1 % (32.4-45.2); HEMOGLOBIN 11.1 GM/dL (10.7-15.3); LYMPH % 44.3 % (8-40); MCH 31.3 pg (25.7-33.7); MCHC 32.7 g/dl (32.0-36.0); MEAN CELL VOLUME 95.6 fl (80-96); MEAN PLT VOLUME 8.2 fl (7.5-11.1); MONO % 8.3 % (3.8-10.2); NEUT % 42.1 % (42.8-82.8); PLATELET COUNT 281 K/MM3 (134-434); RBC 3.56 M/mm3 (3.60-5.2); RDW 12.2 % (11.6-15.6)
[2019-06-24 08:00] LABS: BLOOD UREA NITROGEN 5.8 mg/dL (7-18); CREATININE 0.6 mg/dL (0.55-1.3); POTASSIUM 3.7 mmol/L (3.5-5.1)
[2019-06-24 08:01] LABS: ALBUMIN 2.8 g/dl (3.4-5.0); BILIRUBIN,TOTAL 0.5 mg/dL (0.2-1); CALCIUM 8.1 mg/dL (8.5-10.1); TOT PROT 5.7 g/dl (6.4-8.2)
[2019-06-24 08:02] LABS: INR 1.03 (0.83-1.09); PROTHROMBIN TIME (PATIENT) 12.1 SEC (9.7-13.0)
[2019-06-24 08:05] LABS: ACTIVATED PTT 35.8 SECONDS (25.2-36.5)
[2019-06-24] MEDS ORDERED: PROCHLORPERAZINE MALEATE 5 MG TABLET PO ONE (11:32)
[2019-06-24] MEDS: IBUPROFEN 600 MG TABLET (FP) PO PRN (11:55)
[2019-06-24 14:27] VITALS: BMI 43.8
--- NOTE | 2019-06-24 14:55 | PN.GI ---
GI Progress Note Subjective: Complains of continued upper / RUQ pain No vomiting MRCP not performed as of yet. Was supposed to be performed yesterday, however put on hold due to new onset of headache, blurred vision symptoms. - Objective Vital Signs: Vital Signs Temperature 97.7 F 06/24/19 06:00 Pulse Rate 71 06/24/19 06:00 Respiratory Rate 18 06/24/19 06:00 Blood Pressure 102/44 L 06/24/19 06:00 O2 Sat by Pulse Oximetry (%) 97 06/23/19 21:00 Labs: CBC, BMP 06/24/19 07:00 06/24/19 07:00 INR, PTT INR 1.03 (0.83-1.09) 06/24/19 07:00 Problem List - Problems (1) Elevated LFTs Assessment/Plan: Downtrending LFTS'. With concern of possible retained stone or passage of stone with continued symptomatology, consider surgical evaluation to discuss inpatient cholecystectomy once biliary tract has been evaluated by MRCP. Monitor LFTs Clear liquids Awaiting MRCP Dr. Altamirano covering the weekend Code(s): R94.5 - ABNORMAL RESULTS OF LIVER FUNCTION STUDIES
--- NOTE | 2019-06-24 17:02 | PN ---
Progress Note (short form) - Note Progress Note: HPI: Pt wanted to leave AMA. Pt frustrated about not receiving MRCP yesterday and reports being hungry. Pt has intermittent LLQ pain now with mitigation by Motrin. Pt also feels that she has facial edema without any other notable symptoms PE: Gen: NAD, awake, alert, oriented x3 HEENT: NC/AT, PEALR, sclera anicteric, no jaundice, MMM LUNG: CTA b/l no wheezes or rales CARD: RRR no murmurs ABD: Soft, slight TTP diffusely, nondistended, normoactive BS, no hepatomegaly, no guarding, no rebound EXT: no edema. peripheral pulses intact CBC, BMP 06/22/19 09:50 06/22/19 09:50 Hepatic Panel Total Bilirubin 0.8 mg/dL (0.2-1) 06/22/19 09:50 AST 92 U/L (15-37) H 06/22/19 09:50 ALT 115 U/L (13-61) H 06/22/19 09:50 Alkaline Phosphatase 125 U/L (45-117) H 06/22/19 09:50 Albumin 3.2 g/dl (3.4-5.0) L 06/22/19 09:50 Active Medications Ibuprofen (Motrin -) 600 mg PO Q6H PRN PRN Reason: PAIN LEVEL 4 - 6 Last Admin: 06/24/19 11:55 Dose: 600 mg Morphine Sulfate (Morphine Sulfate) 2 mg IVPUSH Q6H PRN PRN Reason: PAIN LEVEL 7 - 10 Last Admin: 06/22/19 14:16 Dose: 2 mg Microbiology 06/22/19 04:40 Blood - Peripheral Venous Blood Culture - Preliminary NO GROWTH OBTAINED AFTER 24 HOURS, INCUBATION TO CONTINUE FOR 4 DAYS. 06/22/19 04:40 Blood - Peripheral Venous Blood Culture - Preliminary NO GROWTH OBTAINED AFTER 24 HOURS, INCUBATION TO CONTINUE FOR 4 DAYS. Assessment and Plan: Intractable abdominal pain R/o choledocolithiasis Mild intermittent asthma, not in exacerbatoin Prolonged QTc --MRCP not performed last night; discussed with radiology and will be going around 6-7 tonight --Continue pain control with Motrin 600mg q6h PRN --Compazine 10mg q4h PRN for nausea FEN: Fluids: None currently Electrolyte abnormalities: none Nutrition: NPO except medications PPX: DVT - SCDs GI - Not indicated Dispo: MRCP Case discussed with Dr. Carmen Maria, DO - IM PGY-3 <Kei Maria - Last Filed: 06/24/19 17:02> - Note Progress Note: SEEN AND EXAMINED; AGREE WITH ABOVE DOCUMENTED ASIDE FROM I HAVE SUPPLEMENTED BELOW. INDEPENDENTLY VERIFIED ALL CHILDS HISTORICAL AND PE FINDINGS PAIN IS IMPROVED, SHE WANTS TO EAT AND IS CONSIDERING LEAVING AMA IF SHE DOESN' T GET HER SCAN. VS, LABS, IMAGING REVIEWED NAD AAO RESTING IN BED NC AT EOMI PERRLA NECK SUPPLE, NO JVD BARELY TENDER, ND, +BS CN2-12 WNL, NO FND NO SKIN RASHES OR BREAKDOWN 5/5 STRENGTH ALL 4EXT, NORMAL TONE NORMAL MOOD, APPROPRIATE BEHAVIOR BUT SHE IS FRUSTRATED AND HAS RESTRICTED INSIGHT MRCP PENDING; RESIDENT TEAM DISCUSSED WITH MRI TO COORDINATE TIME FOR THIS PM. FURTHER MANAGEMENT PENDING MRCP. DISCUSSED WITH GI. AGREE WITH ABOVE PROBLEM LIST DOCUMENTED. <Thor Morales - Last Filed: 06/25/19 11:20>
[2019-06-24] MEDS ORDERED: KETOROLAC TROMETHAMINE 15 MG/ML VIAL IVPUSH ONE (17:15)
[2019-06-25 06:39] LABS: HEMATOCRIT 35.3 % (32.4-45.2); HEMOGLOBIN 11.8 GM/dL (10.7-15.3); MCH 31.3 pg (25.7-33.7); MCHC 33.4 g/dl (32.0-36.0); MEAN CELL VOLUME 93.9 fl (80-96); PLATELET COUNT 284 K/MM3 (134-434); RBC 3.76 M/mm3 (3.60-5.2); RDW 11.9 % (11.6-15.6)
[2019-06-25 06:51] LABS: ALBUMIN 3.1 g/dl (3.4-5.0); BILIRUBIN,TOTAL 0.8 mg/dL (0.2-1); BLOOD UREA NITROGEN 5.3 mg/dL (7-18); CALCIUM 8.7 mg/dL (8.5-10.1); CREATININE 0.6 mg/dL (0.55-1.3); POTASSIUM 3.5 mmol/L (3.5-5.1); TOT PROT 6.1 g/dl (6.4-8.2)
[2019-06-25] MEDS: IBUPROFEN 600 MG TABLET (FP) PO PRN (08:57)
[2019-06-25] MEDS ORDERED: ONDANSETRON *ODT* 4 MG TABLET SL PRN (09:09)
--- NOTE | 2019-06-25 12:08 | PN ---
Physical Exam: SUBJECTIVE: Patient seen and examined she has no pains and good appetiet her mrcp is normal H OBJECTIVE: Vital Signs Period Temp Pulse Resp BP Sys/Talebrt Pulse Ox Last 24 Hr 98 F-98.4 F 67-90 18-20 101-120/55-67 100-100 GENERAL: The patient is awake, alert, and fully oriented, in no acute distress. HEAD: Normal with no signs of trauma. EYES: PERRL, extraocular movements intact, sclera anicteric, conjunctiva clear. No ptosis. ENT: Ears normal, nares patent, oropharynx clear without exudates, moist mucous membranes. NECK: Trachea midline, full range of motion, supple. LUNGS: Breath sounds equal, clear to auscultation bilaterally, no wheezes, no crackles, no accessory muscle use. HEART: Regular rate and rhythm, S1, S2 without murmur, rub or gallop. ABDOMEN: Soft, nontender, nondistended, normoactive bowel sounds, no guarding, no rebound, no hepatosplenomegaly, no masses. EXTREMITIES: 2+ pulses, warm, well-perfused, no edema. NEUROLOGICAL: Cranial nerves II through XII grossly intact. Normal speech, gait not observed. PSYCH: Normal mood, normal affect. SKIN: Warm, dry, normal turgor, no rashes or lesions noted Laboratory Results - last 24 hr 06/25/19 06/25/19 05:55 05:55 WBC 6.0 RBC 3.76 Hgb 11.8 Hct 35.3 MCV 93.9 MCH 31.3 MCHC 33.4 RDW 11.9 Plt Count 284 MPV 8.0 Sodium 141 Potassium 3.5 Chloride 108 H Carbon Dioxide 25 Anion Gap 8 BUN 5.3 L Creatinine 0.6 Est GFR (CKD-EPI)AfAm 148.90 Est GFR (CKD-EPI)NonAf 128.48 Random Glucose 83 Calcium 8.7 Total Bilirubin 0.8 AST 83 H ALT 136 H Alkaline Phosphatase 124 H Total Protein 6.1 L Albumin 3.1 L Active Medications Generic Name Dose Route Start Last Admin Trade Name Freq PRN Reason Stop Dose Admin Ibuprofen 600 mg 06/22/19 07:14 06/25/19 08:57 Motrin - PO 600 mg Q6H PRN Administration PAIN LEVEL 4 - 6 Morphine Sulfate 2 mg 06/22/19 07:15 06/22/19 14:16 Morphine Sulfate IVPUSH 2 mg Q6H PRN Administration PAIN LEVEL 7 - 10 Ondansetron HCl 4 mg 06/25/19 09:09 06/25/19 09:21 Zofran Odt - SL 4 mg Q6H PRN Administration NAUSEA AND/OR VOMITING ASSESSMENT/PLAN: gall stone she is going to need surgery and she doent want to stay in hospital d/w pt to have it removed as out patient bases will give surgeon`s name to her and she understands to f/u no need for abx she can take motion prn for pain and advised if the pain comes back she can go home.
--- NOTE | 2019-06-25 12:49 | PN.GI ---
GI Progress Note Subjective: coverage abdominal pain minimal, ate 100pervent of her meal, MRI normal - Objective Vital Signs: Vital Signs Temperature 98.0 F 06/25/19 09:02 Pulse Rate 74 06/25/19 09:02 Respiratory Rate 18 06/25/19 09:02 Blood Pressure 119/55 L 06/25/19 09:02 O2 Sat by Pulse Oximetry (%) 100 06/25/19 09:00 Constitutional: Obese Eyes: Yes: Conjunctiva Clear HENT: Yes: Atraumatic Neck: Yes: Supple Cardiovascular: Yes: Regular Rate and Rhythm Respiratory: Yes: CTA Bilaterally ...Palpate: Yes: Soft, Tenderness (--mild ruq pain). No: Firm/Rigid, Guarding, Hepatomegaly, Mass, Splenomegaly Labs: CBC, BMP 06/25/19 05:55 06/25/19 05:55 INR, PTT INR 1.03 (0.83-1.09) 06/24/19 07:00 Problem List - Problems (1) Elevated LFTs Assessment/Plan: etiolgy unclear R> will need further w/u as an outpatient made aware to follow up with Dr Dickens Code(s): R94.5 - ABNORMAL RESULTS OF LIVER FUNCTION STUDIES
[2019-06-25 14:28] VITALS: BP 103/62; PULSE 85; TEMP 97.9
== END 2019-06-25 15:51 | disposition home or self-care (01) ==
LOC: JER 22:40 → JERBED 06-22 03:54 → J7W 06-22 08:24
PROVIDERS: ADMIT Internal Medicine; ATTEND Internal Medicine
DX: K80.20 Calculus of gallbladder without cholecystitis without obstruction (principal); R74.0 Nonspecific elevation of levels of transaminase and lactic acid dehydrogenase [LDH]; R10.11 Right upper quadrant pain; D72.829 Elevated white blood cell count, unspecified; J45.909 Unspecified asthma, uncomplicated; F17.210 Nicotine dependence, cigarettes, uncomplicated; K76.0 Fatty (change of) liver, not elsewhere classified; I95.9 Hypotension, unspecified; R94.31 Abnormal electrocardiogram [ECG] [EKG]; E66.01 Morbid (severe) obesity due to excess calories; Z68.41 Body mass index [BMI] 40.0-44.9, adult; M54.9 Dorsalgia, unspecified; H53.8 Other visual disturbances; R51 Headache; R94.5 Abnormal results of liver function studies
CPT/HCPCS: 36415; 70450-TC; 71046-TC-FY; 74181-TC; 76705-TC; 78227-TC; 80053; 81003; 83605; 83690; 83735; 84100; 84443; 84703; 85025; 85027; 85379; 85610; 85730; 86850; 86900; 86901; 87040; 93005; 93010; 97116-GP; 97161-GP; 99283-25; A9537; J7030; Q0162

== ENCOUNTER 2019-07-01 00:25 | Inpatient (IN) | payer OTHER ==
[2019-07-01] MEDS ORDERED: SODIUM CHLORIDE 1,000 ML IV STA ×2 (01:47→03:56)
[2019-07-01] MEDS ORDERED: ONDANSETRON *ODT* 4 MG TABLET SL ONE (02:10)
--- NOTE | 2019-07-01 02:10 | PDOC ---
History of Present Illness - General Chief Complaint: Pain, Acute Stated Complaint: FLANK PAIN Time Seen by Provider: 07/01/19 01:47 History Source: Patient Exam Limitations: No Limitations - History of Present Illness Initial Comments: 23 year old female with PMH asthma, gall bladder stones, obesity, presented to ED for RUQ pain since yesterday. Pt reported her pain is constant, radiating around from her back to her RUQ, aggravated by food, no alleviating factors. Pt reported she was told prior to her discharge from R to return to ED if her symptoms return, and she may get surgery on her gall bladder. Pt admitted to 2 hours of vomiting prior to arrival, no reporting no vomiting. Past History - Past Medical History Allergies/Adverse Reactions: Allergies Allergy/AdvReac Type Severity Reaction Status Date / Time No Known Allergies Allergy Verified 06/21/19 22:45 Home Medications: Ambulatory Orders NK [No Known Home Medication] 06/22/19 Asthma: Yes (last attack in November 2018) - Surgical History Abdominal Surgery: Yes Appendectomy: Yes Cholecystectomy: No - Reproductive History (#): 0 Para: 0 Cervical CA: No Dysfunctional Uterine Bleeding: No Ectopic : No Endometrial CA: No Polycystic Ovaries: No Therapeutic (s) & number: Yes (x1) Tubal Ligation: No - Immunization History Immunization Up to Date: Yes - Psycho Social/Smoking Cessation Hx Smoking Status: No Smoking History: Never smoked Have you smoked in the past 12 months: Yes Number of Cigarettes Smoked Daily: 1 If you are a former smoker, when did you quit?: 08/17 Hx Alcohol Use: No Drug/Substance Use Hx: No Substance Use Type: None Hx Substance Use Treatment: No Review of Systems - Review of Systems Able to Perform ROS?: Yes Comments:: ROS General: denied fever, chills, generalized weakness. HEENT: denied sore throat, rhinorrhea, ear pain. Cardiovascular: denied chest pain, palpitations, syncope, diaphoresis. Respiratory: denied shortness of breath, cough, sputum production, hemoptysis. Gastrointestinal: admitted to abdominal pain, nausea, vomiting. denied diarrhea , constipation, blood in stool. Genitourinary: denied dysuria, increased urinary frequency, hematuria, urinary incontinence, flank pain. Back: denied back pain. Musculoskeletal: denied joint pain, muscle pain, joint swelling. Neurological: denied headache, dizziness, numbness, tingling, weakness. Integumentary: denied rash, laceration, abrasion. Hematologic/Lymphatic: denied bruising or bleeding. PE Constitutional: Well-nourished, Well-developed, appearing stated age. HEENT: head is normocephalic, atraumatic. EOMI. PERRLA. Neck: supple. Full ROM. Cardiovascular: regular heart rhythm. no murmurs. no pericardial friction rub. Respiratory: clear to auscultation bilaterally. no crackles, rhonchi or wheezing. no stridor. Gastrointestinal: soft, nontender. murphys negative. normal bowel sounds. no rebound, guarding, masses. Extremities: peripheral pulses intact. no lower extremity edema. Neurological: CN 2-12 grossly intact. moves all four extremities. Psych: awake, alert, oriented x3. follows commands. answers questions appropriately. *Physical Exam - Vital Signs Last Vital Signs Temp Pulse Resp BP Pulse Ox 97.4 F L 87 18 111/56 L 98 07/01/19 00:30 07/01/19 00:30 07/01/19 00:30 07/01/19 00:30 07/01/19 00:30 Procedures - Bedside Ultrasound Bedside Ultrasound: Gallbladder Remarks: Bedside RUQ US performed by me: -1 stone noted in the GB -CBD not visualized -GB wall 3.3 mm ED Treatment Course - LABORATORY CBC & Chemistry Diagram: 07/01/19 02:05 07/01/19 03:43 Medical Decision Making - Medical Decision Making 23 year old female with above PMH presented to ED for RUQ pain associated with nausea, vomiting. Initial Vital Signs Temp Pulse Resp BP Pulse Ox 97.4 F L 87 18 111/56 L 98 07/01/19 00:30 07/01/19 00:30 07/01/19 00:30 07/01/19 00:30 07/01/19 00:30 Afebrile No tachycardia No tachypnea No hypoxia on room air Labs ordered: CBC, CMP, lipase, serum , UA/UC Imaging ordered: RUQ US Medications ordered: tylenol 975 mg PO once, zofran 4 mg SL once EKG performed at 0109: rate 68, regular rhythm, normal axis, normal intervals, no acute ST changes. 07/01/19 03:54 CBC WBC 11.2 K/mm3 (4.0-10.0) H 07/01/19 02:05 RBC 3.94 M/mm3 (3.60-5.2) 07/01/19 02:05 Hgb 12.6 GM/dL (10.7-15.3) 07/01/19 02:05 Hct 37.2 % (32.4-45.2) 07/01/19 02:05 MCV 94.6 fl (80-96) 07/01/19 02:05 MCH 31.9 pg (25.7-33.7) 07/01/19 02:05 MCHC 33.8 g/dl (32.0-36.0) 07/01/19 02:05 RDW 12.5 % (11.6-15.6) 07/01/19 02:05 Plt Count 325 K/MM3 (134-434) 07/01/19 02:05 MPV 8.4 fl (7.5-11.1) 07/01/19 02:05 Absolute Neuts (auto) 6.5 K/mm3 (1.5-8.0) 07/01/19 02:05 Neutrophils % 58.2 % (42.8-82.8) D 07/01/19 02:05 Lymphocytes % 30.2 % (8-40) D 07/01/19 02:05 Monocytes % 8.5 % (3.8-10.2) 07/01/19 02:05 Eosinophils % 2.8 % (0-4.5) 07/01/19 02:05 Basophils % 0.3 % (0-2.0) 07/01/19 02:05 Nucleated RBC % 0 % (0-0) 07/01/19 02:05 Mild leukocytosis without left shift. No anemia. CMP Lactic Acid 1.5 mmol/L (0.4-2.0) 07/01/19 02:05 Serum , Qual Negative 07/01/19 02:05 Lab reported CMP hemolyzed. Repeat sent. 07/01/19 04:36 CMP Sodium 138 mmol/L (136-145) 07/01/19 03:43 Potassium 4.1 mmol/L (3.5-5.1) 07/01/19 03:43 Chloride 105 mmol/L (98-107) 07/01/19 03:43 Carbon Dioxide 26 mmol/L (21-32) 07/01/19 03:43 Anion Gap 7 MMOL/L (8-16) L 07/01/19 03:43 BUN 16.7 mg/dL (7-18) 07/01/19 03:43 Creatinine 0.7 mg/dL (0.55-1.3) 07/01/19 03:43 Est GFR (CKD-EPI)AfAm 141.54 07/01/19 03:43 Est GFR (CKD-EPI)NonAf 122.12 07/01/19 03:43 Random Glucose 82 mg/dL (74-106) 07/01/19 03:43 Lactic Acid 1.5 mmol/L (0.4-2.0) 07/01/19 02:05 Calcium 8.9 mg/dL (8.5-10.1) 07/01/19 03:43 Magnesium 1.8 mg/dL (1.8-2.4) 07/01/19 03:43 Total Bilirubin 0.6 mg/dL (0.2-1) 07/01/19 03:43 AST 152 U/L (15-37) H 07/01/19 03:43 ALT 155 U/L (13-61) H 07/01/19 03:43 Alkaline Phosphatase 155 U/L (45-117) H 07/01/19 03:43 Total Protein 7.5 g/dl (6.4-8.2) 07/01/19 03:43 Albumin 3.5 g/dl (3.4-5.0) 07/01/19 03:43 Lipase 288 U/L (73-393) 07/01/19 03:43 Serum , Qual Negative 07/01/19 02:05 Transaminitis without elevated lipase and without elevated total bilirubin. Pt informed of results and need for formal US, probable admission. She reported understanding and agreed with plan for care. 07/01/19 06:56 Pt signed out to day resident. Pending RUQ formal US and disposition. Discharge - Discharge Information Problems reviewed: Yes Clinical Impression/Diagnosis: RUQ pain, Cholelithiasis Condition: Fair - Follow up/Referral - Patient Discharge Instructions - Post Discharge Activity
[2019-07-01] MEDS ORDERED: ACETAMINOPHEN 325 MG TABLET (FP) PO ONE (02:11)
[2019-07-01 02:22] LABS: BASO % 0.3 % (0-2.0); EOS % 2.8 % (0-4.5); HEMATOCRIT 37.2 % (32.4-45.2); HEMOGLOBIN 12.6 GM/dL (10.7-15.3); LYMPH % 30.2 % (8-40); MCH 31.9 pg (25.7-33.7); MCHC 33.8 g/dl (32.0-36.0); MEAN CELL VOLUME 94.6 fl (80-96); MEAN PLT VOLUME 8.4 fl (7.5-11.1); MONO % 8.5 % (3.8-10.2); NEUT % 58.2 % (42.8-82.8); PLATELET COUNT 325 K/MM3 (134-434); RBC 3.94 M/mm3 (3.60-5.2); RDW 12.5 % (11.6-15.6); WHITE BLOOD COUNT 11.2 K/mm3 (4.0-10.0)
[2019-07-01] MEDS ORDERED: ACETAMINOPHEN 325 MG TABLET (FP) ONE (02:26)
[2019-07-01] MEDS ORDERED: ONDANSETRON *ODT* 4 MG TABLET ONE (02:26)
[2019-07-01 02:40] LABS: INR 1.06 (0.83-1.09); PROTHROMBIN TIME (PATIENT) 12.5 SEC (9.7-13.0)
[2019-07-01] MEDS ORDERED: FAMOTIDINE 20 MG/50 ML IVPB 20 MG/50 ML MG IVPB ONE ×2 (03:55→04:05)
[2019-07-01] MEDS ORDERED: MAG HYDROX/AL HYDROX/SIMETH 30 ML UNIT-DOSE CUP PO ONE (03:56)
[2019-07-01] MEDS ORDERED: MAG HYDROX/AL HYDROX/SIMETH 30 ML UNIT-DOSE CUP ONE (04:05)
[2019-07-01 04:29] LABS: ALBUMIN 3.5 g/dl (3.4-5.0); BILIRUBIN,TOTAL 0.6 mg/dL (0.2-1); BLOOD UREA NITROGEN 16.7 mg/dL (7-18); CALCIUM 8.9 mg/dL (8.5-10.1); CREATININE 0.7 mg/dL (0.55-1.3); MAGNESIUM 1.8 mg/dL (1.8-2.4); POTASSIUM 4.1 mmol/L (3.5-5.1); TOT PROT 7.5 g/dl (6.4-8.2)
[2019-07-01 05:38] LABS: URINE APPEARANCE CLEAR; URINE BILIRUBIN NEGATIVE (NEGATIVE); URINE COLOR YELLOW; URINE GLUCOSE (UA) NEGATIVE (NEGATIVE); URINE KETONE NEGATIVE (NEGATIVE); URINE LEUK ESTERASE NEGATIVE (NEGATIVE); URINE NITRITE NEGATIVE (NEGATIVE); URINE PROTEIN NEGATIVE (NEGATIVE); URINE UROBILINOGEN 0.2 mg/dL (0.2-1.0)
--- NOTE | 2019-07-01 07:20 | PDOC ---
*Physical Exam - Vital Signs Last Vital Signs Temp Pulse Resp BP Pulse Ox 97.4 F L 87 18 111/56 L 98 07/01/19 00:30 07/01/19 00:30 07/01/19 00:30 07/01/19 00:30 07/01/19 00:30 ED Treatment Course - LABORATORY CBC & Chemistry Diagram: 07/01/19 02:05 07/01/19 03:43 - ADDITIONAL ORDERS Additional order review: Laboratory Results 07/01/19 07/01/19 07/01/19 05:20 03:43 03:43 PT with INR INR PTT (Actin FS) Sodium Potassium Chloride Carbon Dioxide Anion Gap BUN Creatinine Est GFR (CKD-EPI)AfAm Est GFR (CKD-EPI)NonAf Random Glucose Lactic Acid Calcium Magnesium Cancelled Total Bilirubin AST ALT Alkaline Phosphatase Total Protein Albumin Lipase Serum , Qual Cancelled Urine Color Yellow Urine Appearance Clear Urine pH 6.0 Ur Specific [place] 1.012 Urine Protein Negative Urine Glucose (UA) Negative Urine Ketones Negative Urine Blood Negative Urine Nitrite Negative Urine Bilirubin Negative Urine Urobilinogen 0.2 Ur Leukocyte Esterase Negative 07/01/19 07/01/19 07/01/19 03:43 03:43 02:05 PT with INR INR PTT (Actin FS) Sodium 138 Potassium 4.1 Chloride 105 Carbon Dioxide 26 Anion Gap 7 L BUN 16.7 Creatinine 0.7 Est GFR (CKD-EPI)AfAm 141.54 Est GFR (CKD-EPI)NonAf 122.12 Random Glucose 82 Lactic Acid 1.5 Calcium 8.9 Magnesium 1.8 Total Bilirubin 0.6 AST 152 H ALT 155 H Alkaline Phosphatase 155 H Total Protein 7.5 Albumin 3.5 Lipase Cancelled 288 Serum , Qual Urine Color Urine Appearance Urine pH Ur Specific [place] Urine Protein Urine Glucose (UA) Urine Ketones Urine Blood Urine Nitrite Urine Bilirubin Urine Urobilinogen Ur Leukocyte Esterase 07/01/19 07/01/19 07/01/19 02:05 02:05 02:05 PT with INR 12.50 INR 1.06 PTT (Actin FS) Sodium Potassium Chloride Carbon Dioxide Anion Gap BUN Creatinine Est GFR (CKD-EPI)AfAm Est GFR (CKD-EPI)NonAf Random Glucose Lactic Acid Calcium Magnesium Cancelled Total Bilirubin AST ALT Alkaline Phosphatase Total Protein Albumin Lipase Cancelled Serum , Qual Negative Urine Color Urine Appearance Urine pH Ur Specific [place] Urine Protein Urine Glucose (UA) Urine Ketones Urine Blood Urine Nitrite Urine Bilirubin Urine Urobilinogen Ur Leukocyte Esterase 07/01/19 07/01/19 02:05 02:05 PT with INR INR PTT (Actin FS) 37.5 H Sodium Cancelled Potassium Cancelled Chloride Cancelled Carbon Dioxide Cancelled Anion Gap Cancelled BUN Cancelled Creatinine Cancelled Est GFR (CKD-EPI)AfAm Cancelled Est GFR (CKD-EPI)NonAf Cancelled Random Glucose Cancelled Lactic Acid Calcium Cancelled Magnesium Cancelled Total Bilirubin Cancelled AST Cancelled ALT Cancelled Alkaline Phosphatase Cancelled Total Protein Cancelled Albumin Cancelled Lipase Cancelled Serum , Qual Urine Color Urine Appearance Urine pH Ur Specific [place] Urine Protein Urine Glucose (UA) Urine Ketones Urine Blood Urine Nitrite Urine Bilirubin Urine Urobilinogen Ur Leukocyte Esterase 07/01/19 02:05 RBC 3.94 MCV 94.6 MCHC 33.8 RDW 12.5 MPV 8.4 Neutrophils % 58.2 D Lymphocytes % 30.2 D Monocytes % 8.5 Eosinophils % 2.8 Basophils % 0.3 - Medications Given in the ED: ED Medications Discontinued Medications Generic Name Dose Route Start Last Admin Trade Name Freq PRN Reason Stop Dose Admin Acetaminophen 975 mg 07/01/19 02:11 07/01/19 02:41 Tylenol - PO 07/01/19 02:12 975 mg ONCE ONE Administration Al Hydroxide/Mg Hydroxide 30 ml 07/01/19 03:56 07/01/19 04:13 Mylanta Oral Suspension - PO 07/01/19 03:57 30 ml ONCE ONE Administration Sodium Chloride 1,000 mls @ 1,000 mls/hr 07/01/19 01:47 07/01/19 04:13 Normal Saline - IV 07/01/19 02:46 Not Given ASDIR STA Famotidine/Sodium Chloride 20 mg in 50 mls @ 100 mls/hr 07/01/19 03:55 04:13 Pepcid 20 Mg Premixed Ivpb - IVPB 07/01/19 04:24 100 mls/hr ONCE ONE Administration Sodium Chloride 1,000 mls @ 1,000 mls/hr 07/01/19 03:56 07/01/19 04:13 Normal Saline - IV 07/01/19 04:55 1,000 mls/hr ASDIR STA Administration Ondansetron HCl 4 mg 07/01/19 02:10 07/01/19 02:41 Zofran Odt - SL 07/01/19 02:11 4 mg ONCE ONE Administration Medical Decision Making - Medical Decision Making 07/01/19 07:[address] Sutton 23y/o F hx of recent MRCP discharged 06/25 for gallstones, asthma, morbid obesity presenting today with RUQ pain. + nausea, vomiting liver enzymes increased from last visit to do's : formal RUQ u/s pending Admission pending ultrasound results. 07/01/19 10:47 U/S: shows gallstones in gallbladder, no cholecystitis. Discharge - Discharge Information Condition: Fair - Follow up/Referral - Patient Discharge Instructions - Post Discharge Activity
--- NOTE | 2019-07-01 07:30 | PDOC ---
Attending Attestation - Resident Resident Name: Melanie Sutton - ED Attending Attestation I have performed the following: I have examined & evaluated the patient, The case was reviewed & discussed with the resident, I agree w/resident's findings & plan, Exceptions are as noted - HPI HPI: 07/01/19 07:26 23F pmh asthma, cholelithiasis, here with RUQ px, aggravated by food. A/w nausea. Was admitted about a week ago for same complaints, found to have cholelithiasis w/o cholecystitis, MRCP negative. Was instructed to return if symptoms recur. - Physicial Exam PE: 07/01/19 07:29 Agree with exam as documented by resident - Medical Decision Making 07/01/19 07:29 Biliary colic?, acute cholecystits?, pancreatitis?, less likely cholangitis f/u labs, official US dispo per clnical course
[2019-07-01] MEDS ORDERED: KETOROLAC TROMETHAMINE 15 MG/ML VIAL IVPUSH ONE (10:12)
[2019-07-01] MEDS ORDERED: DICYCLOMINE HCL 10 MG/5 ML PO ONE (10:12)
[2019-07-01] MEDS ORDERED: DICYCLOMINE HCL 10 MG CAPSULE ONE (11:20)
[2019-07-01] MEDS ORDERED: KETOROLAC TROMETHAMINE 15 MG/ML VIAL ONE (11:20)
[2019-07-01] MEDS ORDERED: LACTATED RINGERS SOLUTION 1,000 ML IV SCH (12:00)
--- NOTE | 2019-07-01 12:02 | HP ---
CHIEF COMPLAINT: abd pain PCP: Unknown HISTORY OF PRESENT ILLNESS: 23F w/ pmhx of cholelithiasis (recently discharged on 06/25) presents in the ED for progressively worsening R sided abd pain. Pt states pain radiates to the back. Since her discharge, she has only eaten rice, oatmeal, bread, boiled eggs. She describes her abd pain as a sharp and stabbing pain that is intermittent. States she has the pain whether she eats or not and it is worse when laying down. Admits to associated nausea/vomiting and burning in her chest after vomiting multiple times, NBNB. Of note, she was recently discharged on and had an MRCP that showed no evid of CBD dilatation. She was also evaluated by GI with recommendation for surgical evaluation. Admits to some burning while urination associated with abd discomfort, but denies constipation/ diarrhea. ER course was notable for: (1) NS x2L, Zofran SL, IV Toradol, IV Pepcid, Mylanta, PO Tylenol (2) WBC 11.2, A/A 152/155, Alk P 155 (3) Abd U/S showed multiple small nonmobile GS, no evid of cholecystitis Recent Travel: Denies PAST MEDICAL HISTORY: Denies PAST SURGICAL HISTORY: appendectomy tonsillectomy C-s (04/03/19) Social History: Smokin-4 cigs/week x2 years Alcohol: Denies Drugs: Denies Allergies No Known Allergies Allergy (Verified 06/21/19 22:45) HOME MEDICATIONS: Home Medications Medication Instructions Recorded NK [No Known Home Medication] 06/22/19 REVIEW OF SYSTEMS CONSTITUTIONAL: Absent: fever, chills, diaphoresis, generalized weakness, malaise, loss of appetite, weight change HEENT: Absent: rhinorrhea, nasal congestion, throat pain, throat swelling, difficulty swallowing, mouth swelling, ear pain, eye pain, visual changes CARDIOVASCULAR: Absent: chest pain, syncope, palpitations, irregular heart rate, lightheadedness , peripheral edema RESPIRATORY: Absent: cough, shortness of breath, dyspnea with exertion, orthopnea, wheezing, stridor, hemoptysis GASTROINTESTINAL: abdominal pain, nausea, vomiting, Absent: , abdominal distension, diarrhea, constipation, melena, hematochezia GENITOURINARY: Absent: dysuria, frequency, urgency, hesitancy, hematuria, flank pain, genital pain MUSCULOSKELETAL: Absent: myalgia, arthralgia, joint swelling, back pain, neck pain SKIN: Absent: rash, itching, pallor HEMATOLOGIC/IMMUNOLOGIC: Absent: easy bleeding, easy bruising, lymphadenopathy, frequent infections ENDOCRINE: Absent: unexplained weight gain, unexplained weight loss, heat intolerance, cold intolerance NEUROLOGIC: Absent: headache, focal weakness or paresthesias, dizziness, unsteady gait, seizure, mental status changes, bladder or bowel incontinence PSYCHIATRIC: Absent: anxiety, depression, suicidal or homicidal ideation, hallucinations. PHYSICAL EXAMINATION Vital Signs - 24 hr 07/01/19 00:30 Temperature 97.4 F L Pulse Rate 87 Respiratory 18 Rate Blood Pressure 111/56 L O2 Sat by Pulse 98 Oximetry (%) GENERAL: Awake, alert, and fully oriented, in no acute distress. HEAD: Normal with no signs of trauma. EYES: Pupils equal, round and reactive to light, extraocular movements intact, sclera anicteric, conjunctiva clear. No lid lag. EARS, NOSE, THROAT: Ears normal, nares patent, oropharynx clear without exudates. Moist mucous membranes. NECK: Normal range of motion, supple without lymphadenopathy, JVD, or masses. LUNGS: Breath sounds equal, clear to auscultation bilaterally. No wheezes, and no crackles. No accessory muscle use. HEART: Regular rate and rhythm, normal S1 and S2 without murmur, rub or gallop. ABDOMEN: Soft, nontender, not distended, normoactive bowel sounds, no guarding, no rebound, no masses. No hepatomegaly or splenomegaly. MUSCULOSKELETAL: Normal range of motion at all joints. No bony deformities or tenderness. No CVA tenderness. UPPER EXTREMITIES: 2+ pulses, warm, well-perfused. No cyanosis. No clubbing. No peripheral edema. LOWER EXTREMITIES: 2+ pulses, warm, well-perfused. No calf tenderness. No peripheral edema. NEUROLOGICAL: Cranial nerves II-XII intact. Normal speech. Normal gait. PSYCHIATRIC: Cooperative. Good eye contact. Appropriate mood and affect. SKIN: Warm, dry, normal turgor, no rashes or lesions noted, normal capillary refill. Laboratory Results - last 24 hr 07/01/19 07/01/19 07/01/19 02:05 02:05 02:05 WBC 11.2 H RBC 3.94 Hgb 12.6 Hct 37.2 MCV 94.6 MCH 31.9 MCHC 33.8 RDW 12.5 Plt Count 325 MPV 8.4 Absolute Neuts (auto) 6.5 Neutrophils % 58.2 D Lymphocytes % 30.2 D Monocytes % 8.5 Eosinophils % 2.8 Basophils % 0.3 Nucleated RBC % 0 PT with INR INR PTT (Actin FS) 37.5 H Sodium Cancelled Potassium Cancelled Chloride Cancelled Carbon Dioxide Cancelled Anion Gap Cancelled BUN Cancelled Creatinine Cancelled Est GFR (CKD-EPI)AfAm Cancelled Est GFR (CKD-EPI)NonAf Cancelled Random Glucose Cancelled Lactic Acid Calcium Cancelled Magnesium Cancelled Total Bilirubin Cancelled AST Cancelled ALT Cancelled Alkaline Phosphatase Cancelled Total Protein Cancelled Albumin Cancelled Lipase Cancelled Serum , Qual Urine Color Urine Appearance Urine pH Ur Specific [place] Urine Protein Urine Glucose (UA) Urine Ketones Urine Blood Urine Nitrite Urine Bilirubin Urine Urobilinogen Ur Leukocyte Esterase 07/01/19 07/01/19 07/01/19 02:05 02:05 02:05 WBC RBC Hgb Hct MCV MCH MCHC RDW Plt Count MPV Absolute Neuts (auto) Neutrophils % Lymphocytes % Monocytes % Eosinophils % Basophils % Nucleated RBC % PT with INR 12.50 INR 1.06 PTT (Actin FS) Sodium Potassium Chloride Carbon Dioxide Anion Gap BUN Creatinine Est GFR (CKD-EPI)AfAm Est GFR (CKD-EPI)NonAf Random Glucose Lactic Acid Calcium Magnesium Cancelled Total Bilirubin AST ALT Alkaline Phosphatase Total Protein Albumin Lipase Cancelled Serum , Qual Negative Urine Color Urine Appearance Urine pH Ur Specific [place] Urine Protein Urine Glucose (UA) Urine Ketones Urine Blood Urine Nitrite Urine Bilirubin Urine Urobilinogen Ur Leukocyte Esterase 07/01/19 07/01/19 07/01/19 02:05 03:43 03:43 WBC RBC Hgb Hct MCV MCH MCHC RDW Plt Count MPV Absolute Neuts (auto) Neutrophils % Lymphocytes % Monocytes % Eosinophils % Basophils % Nucleated RBC % PT with INR INR PTT (Actin FS) Sodium 138 Potassium 4.1 Chloride 105 Carbon Dioxide 26 Anion Gap 7 L BUN 16.7 Creatinine 0.7 Est GFR (CKD-EPI)AfAm 141.54 Est GFR (CKD-EPI)NonAf 122.12 Random Glucose 82 Lactic Acid 1.5 Calcium 8.9 Magnesium 1.8 Total Bilirubin 0.6 AST 152 H ALT 155 H Alkaline Phosphatase 155 H Total Protein 7.5 Albumin 3.5 Lipase 288 Cancelled Serum , Qual Urine Color Urine Appearance Urine pH Ur Specific [place] Urine Protein Urine Glucose (UA) Urine Ketones Urine Blood Urine Nitrite Urine Bilirubin Urine Urobilinogen Ur Leukocyte Esterase 07/01/19 07/01/19 07/01/19 03:43 03:43 05:20 WBC RBC Hgb Hct MCV MCH MCHC RDW Plt Count MPV Absolute Neuts (auto) Neutrophils % Lymphocytes % Monocytes % Eosinophils % Basophils % Nucleated RBC % PT with INR INR PTT (Actin FS) Sodium Potassium Chloride Carbon Dioxide Anion Gap BUN Creatinine Est GFR (CKD-EPI)AfAm Est GFR (CKD-EPI)NonAf Random Glucose Lactic Acid Calcium Magnesium Cancelled Total Bilirubin AST ALT Alkaline Phosphatase Total Protein Albumin Lipase Serum , Qual Cancelled Urine Color Yellow Urine Appearance Clear Urine pH 6.0 Ur Specific [place] 1.012 Urine Protein Negative Urine Glucose (UA) Negative Urine Ketones Negative Urine Blood Negative Urine Nitrite Negative Urine Bilirubin Negative Urine Urobilinogen 0.2 Ur Leukocyte Esterase Negative ASSESSMENT/PLAN: 23F w/ pmhx of cholelithiasis (recently discharged on 06/25) presents in the ED for progressively worsening R sided abd pain 2/2 biliary colic/cholelithiasis. #Cholelithiasis; elevated LFTs since previous admission 1 week prior. -IV Zosyn given -Surg consulted; for OR today -GI consulted -NPO -SCDs/IS post-op -Pain control PRN #Hx of Tobacco Use -Tobacco cessation counseling #Obesity -Weight loss/exercise counseling #Prophylaxis DVT: SCDs GI: Protonix 40 IV Dispo -admit to med-surg Visit type - Emergency Visit Emergency Visit: Yes ED Registration Date: 07/01/19 Care time: The patient presented to the Emergency Department on the above date and was hospitalized for further evaluation of their emergent condition. - New Patient This patient is new to me today: Yes Date on this admission: 07/01/19 - Critical Care Critical Care patient: No ATTENDING PHYSICIAN STATEMENT I saw and evaluated the patient. I reviewed the resident's note and discussed the case with the resident. I agree with the resident's findings and plan as documented. SUBJECTIVE: OBJECTIVE: ASSESSMENT AND PLAN:
[2019-07-01] MEDS ORDERED: PIPERACILLIN/TAZOB 4.5 GM 4.5 GM in DEXTROSE 5%-WATER 100 ML IVPB SCH (12:30)
[2019-07-01] MEDS ORDERED: BUPIVACAINE HCL/PF 0.5% (5 MG/ML) 30 ML VIAL IJ ONE ×2 (13:04→13:41)
--- NOTE | 2019-07-01 13:18 | CONSULT ---
- Consultation REQUESTING PROVIDER: Soha Reed CONSULT REQUEST: We have been asked to surgically evaluate this patient for recurrent biliary colic. 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 She has a 3 month old baby at home. PMHx: none PSHx: C-S Home Medications Medication Instructions Recorded NK [No Known Home Medication] 06/22/19 Allergies Allergy/AdvReac Type Severity Reaction Status Date / Time No Known Allergies Allergy Verified 06/21/19 22:45 REVIEW OF SYSTEMS: CONSTITUTIONAL: Absent: fever, chills, diaphoresis, generalized weakness, malaise, loss of appetite, weight change CARDIOVASCULAR: Absent: chest pain, syncope, palpitations, irregular heart rate, lightheadedness , peripheral edema RESPIRATORY: Absent: cough, shortness of breath, dyspnea with exertion, wheezing, stridor, hemoptysis GASTROINTESTINAL: Present: abdominal pain, abdominal distension, nausea, vomiting, GENITOURINARY: Absent: dysuria, frequency, urgency, hesitancy, hematuria, flank pain, genital pain MUSCULOSKELETAL: Absent: myalgia, arthralgia, joint swelling, back pain, neck pain SKIN: Absent: rash, itching, pallor HEMATOLOGIC/IMMUNOLOGIC: Absent: easy bleeding, easy bruising, lymphadenopathy NEUROLOGIC: Absent: headache, focal weakness, paresthesias, dizziness, unsteady gait, seizure, mental status changes, bladder or bowel incontinence PSYCHIATRIC: Absent: anxiety, depression, suicidal or homicidal ideation, hallucinations. PHYSICAL EXAM: GENERAL: Awake, alert, and fully oriented, in no acute distress. HEAD: Normal with no signs of trauma. EYES:sclera anicteric, conjunctiva clear. NECK: Normal ROM, supple without lymphadenopathy, JVD, or masses. ABDOMEN: Soft, tender RUQ , not distended, normoactive bowel sounds, , no rebound, no masses. No organomegaly. No hernias; healed C-S scar. MUSCULOSKELETAL: Normal ROM at all joints. No bony deformities or tenderness. No CVA tenderness. UPPER EXTREMITIES: 2+ pulses, warm, well-perfused. No cyanosis. Cap refill <2 seconds. No peripheral edema. LOWER EXTREMITIES: 2+ pulses, warm, well-perfused. No calf tenderness. No peripheral edema. NEUROLOGICAL: Normal speech, gait not observed. PSYCH: Cooperative. Good eye contact. Appropriate mood and affect. SKIN: Warm, dry, normal turgor, no rashes or lesions noted. Vital Signs Temperature 97.9 F 07/01/19 12:08 Pulse Rate 64 07/01/19 12:08 Respiratory Rate 20 07/01/19 12:08 Blood Pressure 102/37 L 07/01/19 12:08 O2 Sat by Pulse Oximetry (%) 100 07/01/19 12:08 Lab Results WBC 11.2 K/mm3 (4.0-10.0) H 07/01/19 02:05 RBC 3.94 M/mm3 (3.60-5.2) 07/01/19 02:05 Hgb 12.6 GM/dL (10.7-15.3) 07/01/19 02:05 Hct 37.2 % (32.4-45.2) 07/01/19 02:05 MCV 94.6 fl (80-96) 07/01/19 02:05 MCHC 33.8 g/dl (32.0-36.0) 07/01/19 02:05 RDW 12.5 % (11.6-15.6) 07/01/19 02:05 Plt Count 325 K/MM3 (134-434) 07/01/19 02:05 Sodium 138 mmol/L (136-145) 07/01/19 03:43 Potassium 4.1 mmol/L (3.5-5.1) 07/01/19 03:43 Chloride 105 mmol/L (98-107) 07/01/19 03:43 Carbon Dioxide 26 mmol/L (21-32) 07/01/19 03:43 Anion Gap 7 MMOL/L (8-16) L 07/01/19 03:43 BUN 16.7 mg/dL (7-18) 07/01/19 03:43 Creatinine 0.7 mg/dL (0.55-1.3) 07/01/19 03:43 Random Glucose 82 mg/dL (74-106) 07/01/19 03:43 Calcium 8.9 mg/dL (8.5-10.1) 07/01/19 03:43 INR 1.06 (0.83-1.09) 07/01/19 02:05 w/u from this and previous admisson reviewed. IMP:recurrent and worsening biliary colic/cholelithiasis PLAN: For lap kaia possible open; r/b/t/a's d/w the patient pre-op and her boyfriend; informed consent obtained. Shan Nava MD FACS
[2019-07-01] MEDS ORDERED: PROPOFOL 20 ML ONE ×2 (13:23→13:24)
[2019-07-01] MEDS ORDERED: MIDAZOLAM HCL 2 MG/2 ML SINGLE DOSE VIAL ONE (13:23)
[2019-07-01] MEDS ORDERED: SUCCINYLCHOLINE CHLORIDE 200 MG/10 ML SYRINGE ONE (13:23)
[2019-07-01] MEDS ORDERED: ALBUTEROL SO4 8 GM HFA INHALER IH ONE (13:23)
[2019-07-01] MEDS ORDERED: fentaNYL CITRATE 250 MCG/5 ML VIAL ONE (13:23)
[2019-07-01] MEDS ORDERED: PIPERACILLIN/TAZOBACTAM 4.5 GM VIAL IVPB ONE ×2 (13:40→20:56)
--- NOTE | 2019-07-01 13:45 | PN ---
Progress Note (short form) - Note Progress Note: Called to evaluate patient. Patient has been taken to OR
[2019-07-01] MEDS ORDERED: ROCURONIUM BROMIDE 50 MG/5 ML SYRINGE ONE (13:48)
[2019-07-01] MEDS ORDERED: DEXAMETHASONE SOD PHOSPHATE 4 MG/1 ML VIAL ONE (13:54)
[2019-07-01] MEDS ORDERED: NEOSTIGMINE METHYLSULFATE 0.5 MG/ML - 10 ML MDV ONE (14:24)
[2019-07-01] MEDS ORDERED: GLYCOPYRROLATE 0.2 MG/1 ML VIAL ONE ×2 (14:24→14:41)
--- NOTE | 2019-07-01 14:28 | EKG ---
Test Reason : Blood Pressure : / mmHG Vent. Rate : 068 BPM Atrial Rate : 068 BPM P-R Int : 132 ms QRS Dur : 092 ms QT Int : 396 ms P-R-T Axes : 051 085 048 degrees QTc Int : 421 ms NORMAL SINUS RHYTHM POSSIBLE LEFT ATRIAL ENLARGEMENT NON-SPECIFIC INTRA-VENTRICULAR CONDUCTION DELAY WHEN COMPARED WITH ECG OF 22-JUN-2019 02:01, NO SIGNIFICANT CHANGE WAS FOUND Confirmed by CHLOE SOTO MD ([id number]) on 07/01/2019 2:27:46 PM Referred By: Confirmed By:CHLOE SOTO MD
[2019-07-01] MEDS ORDERED: ONDANSETRON 4 MG/2 ML VIAL IVPUSH PRN (14:55)
--- NOTE | 2019-07-01 14:57 | OP ---
Operative Note - Note: Operative Date: 07/01/19 Pre-Operative Diagnosis: Acute cholecystitis/lithiasis Operation: Laprascopic cholecystectomy Post-Operative Diagnosis: Same as Pre-op Surgeon: Shan Nava Drupal Programmer: Pankaj Mccord Anesthesiologist/LEAD TRAINER: Chaitanya Gurrola Anesthesia: General Specimens Removed: gall bladder Estimated Blood Loss (mls): 10 Fluid Volume Replaced (mls): 1,200 (LR) Operative Report Dictated: Yes
--- NOTE | 2019-07-01 14:58 | SURG ---
Surgery Winch Operator Note Winch Operator: Pankaj Mccord PA-C Date of Service: 07/01/19 Diagnosis: Acute cholecystitis, cholelithiasis Procedure: Laprasscopic cholecystectomy I was present for the entirety of the operative procedure. For further detail, please refer to operative report. Visit type - Case Type Case Type: ED Admission - Emergency Emergency Visit: Yes ED Registration Date: 07/01/19 Care time: The patient presented to the Emergency Department on the above date and was hospitalized for further evaluation of their emergent condition. - New patient This patient is new to me today: Yes Date on this admission: 07/01/19
[2019-07-01] MEDS ORDERED: PROMETHAZINE HCL 25 MG/1 ML VIAL ONE (15:05)
[2019-07-01] MEDS ORDERED: ONDANSETRON 4 MG/2 ML VIAL ONE (15:11)
[2019-07-01] MEDS ORDERED: ONDANSETRON 4 MG/2 ML VIAL IVPUSH ONE (15:14)
[2019-07-01] MEDS ORDERED: ACETAMINOPHEN 1000 MG/100 ML VIAL (NON FORMULARY) IVPB ONE ×2 (15:21→15:22)
[2019-07-01] MEDS ORDERED: PROMETHAZINE HCL 25 MG/1 ML VIAL IVPB ONE ×2 (15:31→15:35)
[2019-07-01] MEDS ORDERED: PROMETHAZINE HCL 25 MG/1 ML VIAL IVPUSH ONE (15:31)
[2019-07-01] MEDS ORDERED: HYDROmorphone HCl 2 MG/ML VIAL IVPUSH ONE (15:34)
[2019-07-01] MEDS: ONDANSETRON 4 MG/2 ML VIAL IVPUSH SCH ×2 (16:56→19:08)
[2019-07-01] MEDS: PIPERACILLIN/TAZOB 4.5 GM 4.5 GM in DEXTROSE 5%-WATER 100 ML IVPB SCH ×2 (16:57→21:06)
[2019-07-01] MEDS: LACTATED RINGERS SOLUTION 1,000 ML IV SCH ×2 (17:36→19:13)
[2019-07-01] MEDS: PANTOPRAZOLE SODIUM 40 MG VIAL IVPUSH SCH (17:36)
--- NOTE | 2019-07-01 17:49 | CON.GI ---
Consult Consult Specialty:: GI Referred by:: Hospitalist Service Reason for Consultation:: abdominal pain - History of Present Illness Chief Complaint: Abdominal pain History of Present Illness: Patient seen post operatively. She had Lap Padmini. 23F recently admitted to [facility] for evaluation of RUQ pain. Liver chemistries were noted to be abnormal as well. HIDA failed to reveal accumulation of tracer in CBD and cystic duct was patent. MRCP failed to reveal CBD stone or dilated duct. She was discharged home and had persistent symptoms of pain worsened after meals. abd US revealed gallstones and normal diameter CBD. No GB wall thickening was noted nor was sonographic hartley's. H&P exam describes no abdominal tenderness. She was evaluated by surgery (Dr. Nava). RUQ tenderness was noted. She was take to the OR. Currently she is complaining of abdominal pain (points towards trochar sites and her right upper flank). 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) - Past Surgical History Past Surgical History: Yes: Cholecystectomy, - Alcohol/Substance Use Hx Alcohol Use: No History of Substance Use: reports: None - Smoking History Smoking history: Former smoker Have you smoked in the past 12 months: Yes Aproximately how many cigarettes per day: 1 If you are a former smoker, when did you quit?: 08/17 - Social History ADL: Independent Place of : [facility] History of Recent Travel: No Home Medications - Allergies Allergies/Adverse Reactions: Allergies Allergy/AdvReac Type Severity Reaction Status Date / Time No Known Allergies Allergy Verified 06/21/19 22:45 - Home Medications Home Medications: Ambulatory Orders NK [No Known Home Medication] 06/22/19 Family Medical History Other Family History: No family history of colorectal cancer Review of Systems - Review of Systems Constitutional: denies: Chills, Unintentional Wgt. Loss Cardiovascular: denies: Chest Pain Gastrointestinal: reports: Abdominal Pain, Nausea. denies: Vomiting Physical Exam-GI Vital Signs: Vital Signs Temperature 98.4 F 07/01/19 17:00 Pulse Rate 75 07/01/19 17:00 Respiratory Rate 15 07/01/19 17:00 Blood Pressure 107/60 07/01/19 17:00 O2 Sat by Pulse Oximetry (%) 100 07/01/19 17:00 Constitutional: Yes: Calm Eyes: No: Sclera Icterus Cardiovascular: Yes: Regular Rate and Rhythm. No: Murmur Respiratory: Yes: Diminished (at bases bilaterally with poor insp effort) Gastrointestinal Inspection: Yes: Scars (dressed trochar sites). No: Distention ...Auscultate: Yes: Normoactive Bowel Sounds ...Palpate: Yes: Tenderness (at trochar sites) ...Percussion: No: Tympanitic Edema: No (No LE edema) Neurological: Yes: Alert Labs: CBC, BMP 07/01/19 02:05 07/01/19 03:43 INR, PTT INR 1.06 (0.83-1.09) 07/01/19 02:05 Hepatic Panel Total Bilirubin 0.6 mg/dL (0.2-1) 07/01/19 03:43 AST 152 U/L (15-37) H 07/01/19 03:43 ALT 155 U/L (13-61) H 07/01/19 03:43 Alkaline Phosphatase 155 U/L (45-117) H 07/01/19 03:43 Albumin 3.5 g/dl (3.4-5.0) 07/01/19 03:43 Problem List - Problems (1) Abdominal pain Assessment/Plan: S/P Lap Padmini today secondary to suspected biliary colic: Acute cholecysttis described in Op report Abx per ID Post op care p[er surgery Monitor LFTs post procedure Problems reviewed: Yes Code(s): R10.9 - UNSPECIFIED ABDOMINAL PAIN Qualifiers: Abdominal location: right upper quadrant Qualified Code(s): R10.11 - Right upper quadrant pain
--- NOTE | 2019-07-01 19:42 | PN ---
Teaching Attending Note Name of Resident: Bianka Hoyos ATTENDING PHYSICIAN STATEMENT I saw and evaluated the patient. I reviewed the resident's note and discussed the case with the resident. I agree with the resident's findings and plan as documented. SUBJECTIVE: cc: abd pain and N/v. HPI: seen after her CCy. she is in pain, tired and sleepy and provides limited hx. has abd pain now kevon in R side. feel tired. describes her pain before sx in R side and back . N/V prior to presentation . recent admission for abd pain and transaminitis. MRI on 06/25 with no CBd stones and nCBD dilation seen by sx today and was taken to OR for CCY. per OP report cholecystitis was found OBJECTIVE: NAd, lethargic, looks ill and tired. MMM, no facial droop. Cv: RRR, no MRG. Lungs: CTAB anteriorly, did not want to roll or sit fro a full exam. Abd: soft, no BS, TTP in all quadrants especially in LUQ and LLQ Ext : No edema or erythema . ASSESSMENT AND PLAN: 23 y/o lady with h/o cholelithiasis and recent hospitalization who presented with abd pain N/V. Now S/p CCY 1- Abd pain with transaminitis , due to calclulous cholecystitis - add morphine - monitor LFTs - US reviewed. US and MRI from last admission reviewed. - will start diet in am if no complications - IVF - ID was called from ER. await Recs - cont zosyn for now. - start Heparin sq
[2019-07-01] MEDS ORDERED: DEXTROSE 5%-WATER 100 ML IVPB ONE (20:56)
[2019-07-01] MEDS: morphine SULFATE 4 MG/ML VIAL IVPUSH PRN (23:26)
[2019-07-02] MEDS: ONDANSETRON 4 MG/2 ML VIAL IVPUSH SCH ×3 (00:42→12:36)
[2019-07-02] MEDS ORDERED: DEXTROSE 5%-WATER 100 ML IVPB ONE ×2 (01:46→08:35)
[2019-07-02] MEDS ORDERED: PIPERACILLIN/TAZOBACTAM 4.5 GM VIAL IVPB ONE ×2 (01:46→08:35)
[2019-07-02] MEDS: PIPERACILLIN/TAZOB 4.5 GM 4.5 GM in DEXTROSE 5%-WATER 100 ML IVPB SCH ×2 (03:13→10:21)
[2019-07-02] MEDS: morphine SULFATE 4 MG/ML VIAL IVPUSH PRN ×2 (03:40→07:39)
--- NOTE | 2019-07-02 07:55 | PN.GI ---
GI Progress Note Subjective: some nausea after eating lunch ; denies abdominal pain no fever - Objective Vital Signs: Vital Signs Temperature 99.2 F 07/02/19 06:00 Pulse Rate 81 07/02/19 06:00 Respiratory Rate 18 07/02/19 06:00 Blood Pressure 121/51 L 07/02/19 06:00 O2 Sat by Pulse Oximetry (%) 94 L 07/01/19 21:00 Constitutional: Well Nourished, No Distress Eyes: Yes: WNL HENT: Yes: WNL Neck: Yes: WNL Cardiovascular: Yes: WNL, Regular Rate and Rhythm Respiratory: Yes: WNL, Regular, CTA Bilaterally Gastrointestinal Inspection: Yes: WNL ...Auscultate: Yes: Other (post surgical tenderness ; no rebound or guarding ; bowel sounds present) Extremities: Yes: WNL Labs: CBC, BMP 07/01/19 02:05 07/01/19 03:43 INR, PTT INR 1.06 (0.83-1.09) 07/01/19 02:05 Problem List - Problems (1) Transaminitis Assessment/Plan: s/p lap kaia POD 1 LFT's downtrending diet as per surgery DC planning as per surgery Code(s): R74.0 - NONSPEC ELEV OF LEVELS OF TRANSAMNS & LACTIC ACID DEHYDRGNSE (2) Acute cholecystitis due to biliary calculus Code(s): K80.00 - CALCULUS OF GALLBLADDER W ACUTE CHOLECYST W/O OBSTRUCTION
[2019-07-02 09:12] LABS: BASO % 0.1 % (0-2.0); EOS % 0.2 % (0-4.5); HEMATOCRIT 33.1 % (32.4-45.2); HEMOGLOBIN 11.4 GM/dL (10.7-15.3); LYMPH % 25.1 % (8-40); MCH 32.6 pg (25.7-33.7); MCHC 34.3 g/dl (32.0-36.0); MEAN PLT VOLUME 8.5 fl (7.5-11.1); MONO % 6.8 % (3.8-10.2); NEUT % 67.8 % (42.8-82.8); PLATELET COUNT 289 K/MM3 (134-434); RBC 3.49 M/mm3 (3.60-5.2); RDW 12.5 % (11.6-15.6); WHITE BLOOD COUNT 11.3 K/mm3 (4.0-10.0)
[2019-07-02 09:49] LABS: BILIRUBIN,TOTAL 0.7 mg/dL (0.2-1); BLOOD UREA NITROGEN 8.2 mg/dL (7-18); CALCIUM 8.3 mg/dL (8.5-10.1); CREATININE 0.6 mg/dL (0.55-1.3); POTASSIUM 3.8 mmol/L (3.5-5.1); TOT PROT 5.9 g/dl (6.4-8.2)
[2019-07-02] MEDS: PANTOPRAZOLE SODIUM 40 MG VIAL IVPUSH SCH (10:21)
[2019-07-02] MEDS: HEPARIN NA (PORCINE) 5,000 UNITS/ML 1ML VIAL SQ SCH ×2 (10:21→13:13)
--- NOTE | 2019-07-02 10:43 | PN ---
Progress Note (short form) - Note Progress Note: POD1 s/p lap kaia under GA. Pt is OOB to chair, has mild/moderate pain that is now improved after taking pain medication. VSS, no anesthetic issues/ complications noted.
[2019-07-02] MEDS ORDERED: oxyCODONE HCL 5 MG TABLET PO PRN (10:46)
--- NOTE | 2019-07-02 12:33 | PN ---
Teaching Attending Note Name of Resident: Yinka Watson ATTENDING PHYSICIAN STATEMENT I saw and evaluated the patient. I reviewed the resident's note and discussed the case with the resident. I agree with the resident's findings and plan as documented. SUBJECTIVE: abd pain, no fever or chills. feels nauseous. did not sleep well last night OBJECTIVE NAD, awake, seen ambulating to bathroom. MMM Cv: RRR, no MRG. Lungs: CTAB Abd: soft, Nl BS, minimal TTP in all quadrants especially in LUQ and LLQ Ext : No edema or erythema on LE . minimal edema on LUE ASSESSMENT AND PLAN: 23 y/o lady with h/o cholelithiasis and recent hospitalization who presented with abd pain N/V. Now S/p CCY 1- Abd pain with transaminitis, due to calclulous cholecystitis . POD 1. LFTs are almost normal again. mild leukocytosis, but had sx yesterday. - advance diet - nausea meds - change morphine to oxy - Sx eval pending for today - possibly, she does not need abx any more, but will wait for ID Recs - did not pass gas yet but has bowel sounds. dispo : depends on Sx eval and her sx later today
--- NOTE | 2019-07-02 13:15 | PN ---
Physical Exam: SUBJECTIVE: Patient seen and examined 23F w/ pmhx of cholelithiasis presents in the ED for progressively worsening RUQ pain, which required surgery and pt underwent a lap kaia, and now is admitted post op. Today pt reports RUQ pain and discomfort. Pt has not passed gas or had bowel movement. Pt report no overnight events and was able to sleep. Pt is currently able to get OOB to chair. OBJECTIVE: Last Vital Signs Temp Pulse Resp BP Pulse Ox 98.2 F 78 18 100/54 L 97 07/02/19 10:00 07/02/19 10:00 07/02/19 10:00 07/02/19 10:00 07/02/19 09:00 GENERAL: The patient is awake, alert, and fully oriented, Anxious and in pain. EYES: PERRL, extraocular movements intact, ENT: moist mucous NECK: supple. LUNGS: Breath sounds equal, clear to auscultation bilaterally, no wheezes, no crackles, HEART: Regular rate and rhythm, S1, S2 without murmur, rub or gallop. ABDOMEN: Soft, +tender, mildly distended, normoactive bowel sounds, RUQ tenderness. EXTREMITIES: 2+ pulses, warm, well-perfused, no edema. NEUROLOGICAL: Cranial nerves II through XII grossly intact. PSYCH: Normal mood, normal affect. Laboratory Results - last 24 hr CBC,CMP WBC 11.3 K/mm3 (4.0-10.0) H 07/02/19 08:10 RBC 3.49 M/mm3 (3.60-5.2) L 07/02/19 08:10 Hgb 11.4 GM/dL (10.7-15.3) 07/02/19 08:10 Hct 33.1 % (32.4-45.2) 07/02/19 08:10 MCV 95.0 fl (80-96) 07/02/19 08:10 MCH 32.6 pg (25.7-33.7) 07/02/19 08:10 MCHC 34.3 g/dl (32.0-36.0) 07/02/19 08:10 RDW 12.5 % (11.6-15.6) 07/02/19 08:10 Plt Count 289 K/MM3 (134-434) 07/02/19 08:10 MPV 8.5 fl (7.5-11.1) 07/02/19 08:10 Absolute Neuts (auto) 7.7 K/mm3 (1.5-8.0) 07/02/19 08:10 Neutrophils % 67.8 % (42.8-82.8) 07/02/19 08:10 Lymphocytes % 25.1 % (8-40) 07/02/19 08:10 Monocytes % 6.8 % (3.8-10.2) 07/02/19 08:10 Eosinophils % 0.2 % (0-4.5) D 07/02/19 08:10 Basophils % 0.1 % (0-2.0) 07/02/19 08:10 Nucleated RBC % 0 % (0-0) 07/02/19 08:10 Sodium 139 mmol/L (136-145) 07/02/19 08:10 Potassium 3.8 mmol/L (3.5-5.1) 07/02/19 08:10 Chloride 108 mmol/L (98-107) H 07/02/19 08:10 Carbon Dioxide 25 mmol/L (21-32) 07/02/19 08:10 Anion Gap 7 MMOL/L (8-16) L 07/02/19 08:10 BUN 8.2 mg/dL (7-18) 07/02/19 08:10 Creatinine 0.6 mg/dL (0.55-1.3) 07/02/19 08:10 Est GFR (CKD-EPI)AfAm 148.90 07/02/19 08:10 Est GFR (CKD-EPI)NonAf 128.48 07/02/19 08:10 Random Glucose 89 mg/dL (74-106) 07/02/19 08:10 Lactic Acid 1.5 mmol/L (0.4-2.0) 07/01/19 02:05 Calcium 8.3 mg/dL (8.5-10.1) L 07/02/19 08:10 Magnesium 1.8 mg/dL (1.8-2.4) 07/01/19 03:43 Total Bilirubin 0.7 mg/dL (0.2-1) 07/02/19 08:10 AST 36 U/L (15-37) 07/02/19 08:10 ALT 91 U/L (13-61) H 07/02/19 08:10 Alkaline Phosphatase 109 U/L (45-117) 07/02/19 08:10 Total Protein 5.9 g/dl (6.4-8.2) L 07/02/19 08:10 Albumin 3.0 g/dl (3.4-5.0) L 07/02/19 08:10 Lipase 288 U/L (73-393) 07/01/19 03:43 Serum , Qual Negative 07/01/19 02:05 Active Medications Current Medications Heparin Sodium (Porcine) (Heparin -) 5,000 unit SQ TID BEVERLEY Last Admin: 07/02/19 10:21 Dose: 5,000 unit Piperacillin Sod/Tazobactam (Sod 4.5 gm/ Dextrose) 100 mls @ 200 mls/hr IVPB Q6H-IV BEVERLEY; Protocol Lactated Ringer's (Lactated Ringers Solution) 1,000 mls @ 125 mls/hr IV ASDIR BEVERLEY Last Admin: 07/01/19 19:13 Dose: 125 mls/hr Ondansetron HCl (Zofran Injection) 4 mg IVPUSH Q6H BEVERLEY Last Admin: 07/02/19 12:36 Dose: 4 mg Ondansetron HCl (Zofran Injection) 4 mg IVPUSH Q6H PRN PRN Reason: NAUSEA AND/OR VOMITING Oxycodone HCl (Roxicodone -) 5 mg PO Q4H PRN PRN Reason: PAIN LEVEL 1-5 Home Medications Medication Instructions Recorded NK [No Known Home Medication] 06/22/19 ASSESSMENT/PLAN: 23F w/ pmhx of cholelithiasis presents in the ED for progressively worsening RUQ pain s/p lap cholecystectomy #RUQ pain 2/2 Acute Cholecystitis s/p Lap kaia POD 1 LFTs are nearly normal Control nausea with meds Advance diet- tolerating well As per Surgery- Pt may be discharged to outpt f/u. Dietary instructions given Appreciate Sx recommendation Control pain with oxycodone 5mg Q4 PRN Protonix 40 IV #Obesity Weight loss/exercise counseling #DVT PPx SCDs #FEN Regular diet Dispo: control pain, consider discharge as per surgery Visit type - Emergency Visit Emergency Visit: Yes ED Registration Date: 07/01/19 Care time: The patient presented to the Emergency Department on the above date and was hospitalized for further evaluation of their emergent condition. - New Patient This patient is new to me today: Yes Date on this admission: 07/02/19 - Critical Care Critical Care patient: No - Discharge Referral Referred to [facility] Med P.C.: No ATTENDING PHYSICIAN STATEMENT I saw and evaluated the patient. I reviewed the resident's note and discussed the case with the resident. I agree with the resident's findings and plan as documented. SUBJECTIVE: OBJECTIVE: ASSESSMENT AND PLAN:
--- NOTE | 2019-07-02 13:20 | PN ---
Progress Note (short form) - Note Progress Note: Attending Surgeon POD#1 Tolerated diet; c/o pain ??; relieved w/rxed analgesics. VSS AF abdo-soft; ttp over epigastric port o/w normal. labs noted IMP: doing well PLAN: May be discharged to outpatient f/u; dietary instructions given and office f/u next week. Shan Nava MD FACS
--- NOTE | 2019-07-02 14:48 | DS ---
Physical Exam: SUBJECTIVE: Patient seen and examined 23F w/ pmhx of cholelithiasis presents in the ED for progressively worsening RUQ pain, which required surgery and pt underwent a lap kaia, and now is admitted post op. Today pt reports RUQ pain and discomfort. Pt has not passed gas or had bowel movement. Pt report no overnight events and was able to sleep. Pt is currently able to get OOB to chair. Denies f/c/n/v/d OBJECTIVE: Vital Signs Period Temp Pulse Resp BP Sys/Talbert Pulse Ox Last 24 Hr 97.6 F-99.2 F 65-115 11-22 100-146/51-80 91-100 PHYSICAL EXAM GENERAL: The patient is awake, alert, and fully oriented, Anxious and in pain. EYES: PERRL, extraocular movements intact, ENT: moist mucous NECK: supple. LUNGS: Breath sounds equal, clear to auscultation bilaterally, no wheezes, no crackles, HEART: Regular rate and rhythm, S1, S2 without murmur, rub or gallop. ABDOMEN: Soft, +tender, mildly distended, normoactive bowel sounds, RUQ tenderness. EXTREMITIES: 2+ pulses, warm, well-perfused, no edema. NEUROLOGICAL: Cranial nerves II through XII grossly intact. PSYCH: Normal mood, normal affect. LABS Laboratory Results - last 24 hr 07/02/19 07/02/19 08:10 08:10 WBC 11.3 H RBC 3.49 L Hgb 11.4 Hct 33.1 MCV 95.0 MCH 32.6 MCHC 34.3 RDW 12.5 Plt Count 289 MPV 8.5 Absolute Neuts (auto) 7.7 Neutrophils % 67.8 Lymphocytes % 25.1 Monocytes % 6.8 Eosinophils % 0.2 D Basophils % 0.1 Nucleated RBC % 0 Sodium 139 Potassium 3.8 Chloride 108 H Carbon Dioxide 25 Anion Gap 7 L BUN 8.2 Creatinine 0.6 Est GFR (CKD-EPI)AfAm 148.90 Est GFR (CKD-EPI)NonAf 128.48 Random Glucose 89 Calcium 8.3 L Total Bilirubin 0.7 AST 36 ALT 91 H Alkaline Phosphatase 109 Total Protein 5.9 L Albumin 3.0 L Home Medications Medication Instructions Recorded Acetaminophen [Tylenol] 650 mg PO Q8H PRN #30 tablet 07/02/19 Ibuprofen 400 mg PO Q8H PRN #20 tablet 07/02/19 Current Medications Heparin Sodium (Porcine) (Heparin -) 5,000 unit SQ TID BEVERLEY Last Admin: 07/02/19 13:13 Dose: 5,000 unit Piperacillin Sod/Tazobactam (Sod 4.5 gm/ Dextrose) 100 mls @ 200 mls/hr IVPB Q6H-IV BEVERLEY; Protocol Lactated Ringer's (Lactated Ringers Solution) 1,000 mls @ 125 mls/hr IV ASDIR B[facility]LEY Last Admin: 07/01/19 19:13 Dose: 125 mls/hr Ondansetron HCl (Zofran Injection) 4 mg IVPUSH Q6H B[facility] Last Admin: 07/02/19 12:36 Dose: 4 mg Ondansetron HCl (Zofran Injection) 4 mg IVPUSH Q6H PRN PRN Reason: NAUSEA AND/OR VOMITING Oxycodone HCl (Roxicodone -) 5 mg PO Q4H PRN PRN Reason: PAIN LEVEL 1-5 Last Admin: 07/02/19 13:12 Dose: 5 mg Microbiology 07/01/19 05:20 Urine - Urine Clean Catch Urine Culture - Final Normal Urogenital Jacque HOSPITAL COURSE: Date of Admission:07/01/19 23F w/ pmhx of cholelithiasis presents w/ RUQ pain found to have acute cholecystitis 2/2 to biliary cholic, that required a lap cholecystectomy, which was successful. Pt was worked up with U/S that found stones in the gallbladder, which later on surgery was determined to have caused inflammation of the gallblader. Pt was treated with PPx abx and fluids, POD1. Pt began to ambulate and tolerate diet. Pt was sent home requiring no abx and instructed to f/u with Dr. Nava. US abd- small nonmobile gall stones EKG- NSR #RUQ pain 2/2 Acute Cholecystitis s/p Lap kaia POD 1 LFTs are nearly normal Control nausea with meds Advance diet- tolerating well As per Surgery- Pt may be discharged to outpt f/u. Dietary instructions given Appreciate Sx recommendation Control pain with oxycodone 5mg Q4 PRN Protonix 40 IV Date of Discharge: 07/02/19 Minutes to complete discharge: 35 Discharge Summary Problems reviewed: Yes Reason For Visit: ELEVATED LIVER FUNCTION TESTS,ABDOMINAL PAIN Current Active Problems Transaminitis (Acute) Condition: Improved - Instructions Diet, Activity, Other Instructions: You were admitted to the hospital for abdominal pain. You were found to have stones and inflammation surrounding your gallbladder. While you were in the hospital, we evaluated you with lab work, blood work, imaging including ultrasound. We found that you needed surgery to remove your gallbladder. After the surgery, your symptoms improved. Avoid high-fat foods, fried and greasy foods, and fatty sauces and gravies for at least a week after surgery. Instead, choose fat-free or low-fat foods. Low- fat foods are those with no more than 3 grams of fat a serving For your pain please take tylenol or motrin as needed. Do not exceed 3 grams of tylenol in a day Please follow up with the surgeon, Dr. Nava in 1 week Please take all your medications as prescribed Please follow up with your primary care physician in 1 week Return to the emergency department, if you experience worsening of your symptoms , chest pain, shortness of breath, nausea and vomiting. please , avoid heavy lifting> 15 pound for 1 month. you can take the band aids off your wounds in 24 hours but leave the white strips on wounds. they will fall off spontaneously you may shower in 48 hours. pat the wounds dry gently Referrals: [facility] [Provider Group] Shan Nava MD [Staff Physician] - 1 Week Disposition: HOME - Home Medications Comprehensive Discharge Medication List: Ambulatory Orders Acetaminophen [Tylenol] 650 mg PO Q8H PRN #30 tablet 07/02/19 Ibuprofen 400 mg PO Q8H PRN #20 tablet 07/02/19 This patient is new to me today: Yes Date on this admission: 07/02/19 Emergency Visit: Yes ED Registration Date: 07/01/19 Care time: The patient presented to the Emergency Department on the above date and was hospitalized for further evaluation of their emergent condition. Critical Care patient: No - Discharge Referral Referred to [facility] Med P.C.: No ATTENDING PHYSICIAN STATEMENT I saw and evaluated the patient. I reviewed the resident's note and discussed the case with the resident. I agree with the resident's findings and plan as documented. SUBJECTIVE: OBJECTIVE: ASSESSMENT AND PLAN:
[2019-07-02 14:59] VITALS: BP 105/58; PULSE 84; TEMP 98.1; BMI 43.4
--- NOTE | 2019-07-04 15:32 | OP ---
DATE OF OPERATION: 07/01/2019 PREOPERATIVE DIAGNOSIS: Acute cholecystitis and cholelithiasis. POSTOPERATIVE DIAGNOSIS: Acute cholecystitis and cholelithiasis. PROCEDURE: Laparoscopic cholecystectomy. SURGEON: Shan Nava MD [employer]: Pankaj Mccord PA-C ANESTHESIA: General. OPERATIVE FINDINGS: Acute cholecystitis and cholelithiasis. The rest of the findings were unremarkable. DESCRIPTION OF PROCEDURE: The patient was placed on the operating room table in supine position. After the induction of general anesthesia, the patient's abdomen was prepped with ChloraPrep and draped in sterile fashion. Time-out was taken and then pneumoperitoneum established above the umbilicus using a Veress needle. Once 15 mm of intra-abdominal pressure was obtained, a 5-mm port was placed at the umbilicus. Additional lateral 5-mm ports and a subxiphoid 12-mm port were placed and laparoscopy carried out, and the previously noted findings were observed. The gallbladder was placed on cephalad and lateral traction, and dissection was begun at the neck of the gallbladder where the peritoneum was opened medially and laterally using blunt and sharp dissection and electrocautery. Dissection continued in the triangle of Calot where the cystic duct was identified coursing from the neck of the gallbladder distally to the common bile duct. It was dissected proximally and distally for length. Similarly, the artery was similarly identified and dissected. A critical view of safety was taken, and then the cystic duct divided proximally and distally using Endo Leonila after it was clipped twice proximally and distally with large hemoclips. The artery was similarly clipped and divided. Hemostasis was checked for and noted to be good and then the gallbladder was removed from the liver bed in a retrograde fashion using electrocautery. Prior to removal from the edge of the liver, hemostasis was again verified and then the gallbladder removed from the edge of the liver, placed in an EndoCatch, and brought out through the subxiphoid port. Pneumoperitoneum was reestablished, hemostasis verified again, and then the 5-mm lateral and subxiphoid ports were removed under laparoscopic vision without evidence of bleeding from the port sites. The umbilical port was removed and the pneumoperitoneum evacuated. All port sites were infiltrated with 0.5% Marcaine and the skin edges closed with 4-0 Biosyn in a subcuticular and continuous fashion. Steri-Strips and Band-Aid dressings were placed and the procedure terminated at this point and the patient aroused from general anesthesia and transferred to the post anesthesia care unit in stable condition awake and alert. ESTIMATED BLOOD LOSS: 10 mL. REPLACEMENTS: Crystalloid. DRAINS: None. SPECIMENS: Gallbladder and contents to Pathology. I, Shan Nava, was physically present in the operating room from the time the patient was placed on the operating room table until he was transferred to the post anesthesia care unit in my company. MD HARISH Marrero/[id number] MTDD
--- NOTE | 2019-07-06 17:22 | PATH ---
Surgical Pathology Report Patient Name: LEIGH NORIEGA Med. Rec. #: [id number] /Age/Gender: 1995 (Age: 23) / F Account: [id number] Location: [address] [place] [address] Taken: 07/01/2019 Received: 07/04/2019 Reported: 07/06/2019 Physicians: Aurelio Nava MD Specimen(s) Received GALLBLADDER Clinical History Cholelithiasis Final Diagnosis GALLBLADDER, LAPAROSCOPIC CHOLECYSTECTOMY: CHRONIC CHOLECYSTITIS WITH RARE GRANULOMA, CHOLESTEROLOSIS, AND CHOLELITHIASIS. SEE COMMENT. Comment: The presence of rare granuloma in a background of chronic inflammation and cholesterolosis, favor a bile induced granulomatous process. However, differential diagnosis includes infection. AFB (acid fast bacilli) and PAS fungal special stains were attempted, but were non-contributory due to lack of lesional tissue on subsequent deeper levels. Suggest clinical correlation. Electronically Signed Jaquelin Velasco M.D. Gross Description Received in formalin, labeled "gallbladder," is a 7.5 x 2.5 x 2.3 cm. gallbladder with a 0.2 cm. in length portion of cystic duct attached. The outer surface is hagen nova and varies from smooth to shaggy. The lumen contains green, tenacious bile as well as abundant yellow, spherical, bosselated choleliths averaging 0.3 cm in greatest dimension. The mucosa is dark green and velvety. The wall of the gallbladder averages 0.1 cm. in thickness. Patient Care Secretary sections are submitted in one cassette. 07/04/2019 saudi07/04/2019
== END 2019-07-02 16:31 | disposition home or self-care (01) | DRG 263 ==
LOC: JER 00:25 → JERBED 11:40 → J6S 12:21
PROVIDERS: ADMIT Internal Medicine; ATTEND Internal Medicine
PROC: 0FT44ZZ Resection of Gallbladder, Percutaneous Endoscopic Approach (ICD-10-PCS; principal; 2019-07-01 13:00)
DX: K80.00 Calculus of gallbladder with acute cholecystitis without obstruction (principal); E66.9 Obesity, unspecified; R74.0 Nonspecific elevation of levels of transaminase and lactic acid dehydrogenase [LDH]; D72.829 Elevated white blood cell count, unspecified; R10.11 Right upper quadrant pain; J45.909 Unspecified asthma, uncomplicated; R11.2 Nausea with vomiting, unspecified; Z68.41 Body mass index [BMI] 40.0-44.9, adult
CPT/HCPCS: 36415; 76705-TC; 80053; 81003; 83605; 83690; 83735; 84703; 85025; 85610; 85730; 87086; 88304-TC; 93005; 93010; 94760; 99283-25; J0131; J1644; J7030; Q0162

== ENCOUNTER 2019-09-16 12:41 | Emergency (ER) | payer OTHER ==
--- NOTE | 2019-09-16 13:02 | PDOC ---
Rapid Medical Evaluation Time Seen by Provider: 09/16/19 13:01 Medical Evaluation: Allergies Allergy/AdvReac Type Severity Reaction Status Date / Time No Known Allergies Allergy Verified 06/21/19 22:45 09/16/19 13:01 I have performed a brief in-person evaluation of this patient. The patient presents with a chief complaint of: s/p kiaa 1-2 months ago at [facility] w/ Dr Nava, here w/ worsening RUQ pain. +nausea and diarrhea. No fevers. Not on any diet restrictions per pt Pertinent physical exam findings:Stable w/ +ttp to RUQ I have ordered the following:labs The patient will proceed to the ED for further evaluation Discharge Disposition - Diagnosis RUQ pain - Referrals - Patient Instructions - Post Discharge Activity
[2019-09-16 13:05] VITALS: BP 114/59; PULSE 75; TEMP 98.8; BMI 43.6
--- NOTE | 2019-09-16 15:40 | PDOC ---
History of Present Illness <Shy Samuels - Last Filed: 09/17/19 17:43> <Ivanna Marquez - Last Filed: 09/19/19 11:48> - General Chief Complaint: Pain, Acute Stated Complaint: PAIN Time Seen by Provider: 09/16/19 13:01 Past History - Travel Traveled outside of the country in the last 30 days: No Close contact w/someone who was outside of country & ill: No - Past Medical History Asthma: Yes (last attack in November 2018) Cancer: No Cardiac Disorders: No COPD: No Diabetes: No GI Disorders: Yes (cholelithiasis) HTN: No Seizures: No Thyroid Disease: No - Surgical History Abdominal Surgery: Yes Appendectomy: Yes Cholecystectomy: No - Reproductive History (#): 0 Para: 0 Cervical CA: No Dysfunctional Uterine Bleeding: No Ectopic : No Endometrial CA: No Polycystic Ovaries: No Therapeutic (s) & number: Yes (x1) Tubal Ligation: No - Immunization History Immunization Up to Date: Yes - Psycho Social/Smoking Cessation Hx Smoking Status: No Smoking History: Current every day smoker Have you smoked in the past 12 months: Yes Number of Cigarettes Smoked Daily: 1 If you are a former smoker, when did you quit?: 08/17 Information on smoking cessation initiated: No Hx Alcohol Use: No Drug/Substance Use Hx: No Substance Use Type: None Hx Substance Use Treatment: No <Shy Samuels - Last Filed: 09/17/19 17:43> <Ivanna Marquez - Last Filed: 09/19/19 11:48> - Past Medical History Allergies/Adverse Reactions: Allergies Allergy/AdvReac Type Severity Reaction Status Date / Time No Known Allergies Allergy Verified 09/16/19 13:01 Home Medications: Ambulatory Orders Acetaminophen [Tylenol] 650 mg PO Q8H PRN #30 tablet 07/02/19 Ibuprofen 400 mg PO Q8H PRN #20 tablet 07/02/19 Review of Systems - Review of Systems Able to Perform ROS?: Yes Comments:: 09/16/19 16:10 CONSTITUTIONAL: Absent: fever, chills, diaphoresis, generalized weakness, malaise, loss of appetite HEENT: Absent: rhinorrhea, nasal congestion, throat pain, throat swelling, difficulty swallowing, mouth swelling, ear pain, eye pain, visual Changes CARDIOVASCULAR: Absent: chest pain, loss of consciousness, palpitations, irregular heart rate, peripheral edema RESPIRATORY: Absent: cough, shortness of breath, dyspnea with exertion, orthopnea, wheezing, stridor, hemoptysis GASTROINTESTINAL: Present: abdominal pain Absent:abdominal distension, nausea, vomiting, diarrhea , constipation, melena, hematochezia GENITOURINARY: Absent: dysuria, frequency, urgency, hesitancy, hematuria, flank pain, genital pain MUSCULOSKELETAL: Absent: myalgia, arthralgia, joint swelling SKIN: Absent: rash, itching, pallor HEMATOLOGIC/IMMUNOLOGIC: Absent: easy bleeding, easy bruising, lymphadenopathy, frequent infections ENDOCRINE: Absent: unexplained weight gain, unexplained weight loss, heat intolerance, cold intolerance NEUROLOGIC: Absent: headache, focal weakness or paresthesias, dizziness, unsteady gait, seizure, mental status changes, bladder or bowel incontinence PSYCHIATRIC: Absent: anxiety, depression, suicidal or homicidal ideation, hallucinations. Is the patient limited Tongan proficient: No <Shy Samuels - Last Filed: 09/17/19 17:43> *Physical Exam - Vital Signs Last Vital Signs Temp Pulse Resp BP Pulse Ox 98.8 F 75 18 114/59 L 100 09/16/19 13:02 09/16/19 13:02 09/16/19 13:02 09/16/19 13:02 09/16/19 13:02 - Physical Exam 09/16/19 16:10 GENERAL: Well developed, well nourished. Awake and alert. No acute distress. HEENT: Normocephalic, atraumatic. PERRLA, EOMI. No conjunctival pallor. Sclera are non- icteric. Moist mucous membranes. Oropharynx is clear. NECK: Supple. Full ROM. No JVD. Carotid pulses 2+ and symmetric, without bruits. No thyromegaly. No lymphadenopathy. CARDIOVASCULAR: Regular rate and rhythm. No murmurs, rubs, or gallops. Distal pulses are 2+ and symmetric. PULMONARY: No evidence of respiratory distress. Lungs clear to auscultation bilaterally. No wheezing, rales or rhonchi. ABDOMINAL: TTP of the RUQ/epigastric area. Soft. Non-distended. No rebound or guarding. No organomegaly. Normoactive bowel sounds. MUSCULOSKELETAL Normal range of motion at all joints. No bony deformities or tenderness. No CVA tenderness. EXTREMITIES: No cyanosis. No clubbing. No edema. No calf tenderness. SKIN: Warm and dry. Normal capillary refill. No rashes. No jaundice. NEUROLOGICAL: Alert, awake, appropriate. Cranial nerves 2-12 intact. No deficits to light touch and temperature in face, upper extremities and lower extremities. No motor deficits in the in face, upper extremities and lower extremities. Normoreflexic in the upper and lower extremities. Normal speech. Toes are down- going bilaterally. Gait is normal without ataxia. PSYCHIATRIC: Cooperative. Good eye contact. Appropriate mood and affect. <Shy Samuels - Last Filed: 09/17/19 17:43> - Vital Signs Last Vital Signs Temp Pulse Resp BP Pulse Ox 98.8 F 75 18 114/59 L 100 09/16/19 13:02 09/16/19 13:02 09/16/19 13:02 09/16/19 13:02 09/16/19 13:02 <Ivanna Marquez - Last Filed: 09/19/19 11:48> ED Treatment Course - LABORATORY CBC & Chemistry Diagram: 09/16/19 15:00 09/16/19 15:00 - RADIOLOGY Radiology Studies Ordered: Category Date Time Status ABDOMEN US -LIMITED [US] Stat Ultrasound 09/16/19 13:52 Ordered <Shy Samuels - Last Filed: 09/17/19 17:43> - LABORATORY CBC & Chemistry Diagram: 09/16/19 15:00 09/16/19 15:00 - ADDITIONAL ORDERS Additional order review: 09/16/19 15:00 RBC 4.38 MCV 92.1 MCHC 33.8 RDW 13.2 MPV 8.0 Neutrophils % 60.2 Lymphocytes % 30.5 D Monocytes % 6.3 Eosinophils % 2.7 D Basophils % 0.3 - Medications Given in the ED: ED Medications Discontinued Medications Generic Name Dose Route Start Last Admin Trade Name Freq PRN Reason Stop Dose Admin Acetaminophen 975 mg 09/16/19 15:51 09/16/19 16:20 Tylenol - PO 09/16/19 15:52 975 mg ONCE ONE Administration Famotidine 20 mg 09/16/19 15:51 09/16/19 16:20 Pepcid - PO 09/16/19 15:52 20 mg ONCE ONE Administration Lidocaine HCl 20 ml 09/16/19 15:52 09/16/19 16:20 Xylocaine 2% Viscous Oral - MM 09/16/19 15:53 20 ml ONCE ONE Administration Ondansetron HCl 4 mg 09/16/19 15:51 09/16/19 16:20 Zofran Odt - SL 09/16/19 15:52 4 mg ONCE ONE Administration <Ivanna Marquez - Last Filed: 09/19/19 11:48> Medical Decision Making - Medical Decision Making 09/16/19 16:47 The pt is a 24 y/o F with PMH of cholecystectomy who presents to the ER for RUQ pain. She states she had her gall bladder removed one month ago by Dr. Nava. She states that the pain never got better after surgery, and that it is mostly in the RUQ. She states the pain is colicky and is worse after eating. She states she has no diet restrictions. Denies fevers, chills, vomiting, chest pain , SOB, and urinary symptoms. A/P: RUQ pain On exam pt has TTP of the RUQ, No rebound. Negative murphys sign Labs, US ordered to check CBD GI cocktail given Sign out given to DAVID Roman; dispo depending on US <Shy Samuels - Last Filed: 09/17/19 17:43> - Medical Decision Making I reviewed the case with the mid-level practitioner and agree with the mid- level practitioner's assessment, diagnosis and disposition. <Ivanna Marquez - Last Filed: 09/19/19 11:48> Discharge - Discharge Information Problems reviewed: Yes <Shy Samuels - Last Filed: 09/17/19 17:43> <Ivanna Marquez - Last Filed: 09/19/19 11:48> - Discharge Information Clinical Impression/Diagnosis: RUQ pain Condition: Stable Disposition: HOME - Follow up/Referral Referrals: Shan Nava MD [Staff Physician] - 2 Days - Patient Discharge Instructions Patient Printed Discharge Instructions: DI for Abdominal Pain-Adult Additional Instructions: Thank you for choosing [facility]. It was a pleasure taking care of you. Please follow-up with Dr. Nava for further evaluation of your symptoms Return to the Emergency Department if your symptoms worsen or persist or have other concerning symptoms.
[2019-09-16 15:46] LABS: URINE APPEARANCE CLEAR; URINE BILIRUBIN NEGATIVE (NEGATIVE); URINE COLOR YELLOW; URINE GLUCOSE (UA) NEGATIVE (NEGATIVE); URINE KETONE NEGATIVE (NEGATIVE); URINE LEUK ESTERASE NEGATIVE (NEGATIVE); URINE NITRITE NEGATIVE (NEGATIVE); URINE PROTEIN NEGATIVE (NEGATIVE); URINE UROBILINOGEN 0.2 mg/dL (0.2-1.0)
[2019-09-16] MEDS ORDERED: ONDANSETRON *ODT* 4 MG TABLET SL ONE (15:51)
[2019-09-16] MEDS ORDERED: ACETAMINOPHEN 325 MG TABLET (FP) PO ONE (15:51)
[2019-09-16] MEDS ORDERED: FAMOTIDINE 20 MG TABLET PO ONE (15:51)
[2019-09-16 15:52] LABS: BASO % 0.3 % (0-2.0); EOS % 2.7 % (0-4.5); HEMATOCRIT 40.4 % (32.4-45.2); HEMOGLOBIN 13.6 GM/dL (10.7-15.3); LYMPH % 30.5 % (8-40); MCH 31.1 pg (25.7-33.7); MCHC 33.8 g/dl (32.0-36.0); MEAN CELL VOLUME 92.1 fl (80-96); MONO % 6.3 % (3.8-10.2); NEUT % 60.2 % (42.8-82.8); PLATELET COUNT 332 K/MM3 (134-434); RBC 4.38 M/mm3 (3.60-5.2); RDW 13.2 % (11.6-15.6); WHITE BLOOD COUNT 10.8 K/mm3 (4.0-10.0)
[2019-09-16] MEDS ORDERED: LIDOCAINE VISCOUS 2% ORAL/TOP 20 ML UNIT-DOSE CUP MM ONE (15:52)
[2019-09-16] MEDS ORDERED: LIDOCAINE VISCOUS 2% ORAL/TOP 20 ML UNIT-DOSE CUP ONE (16:15)
[2019-09-16] MEDS ORDERED: FAMOTIDINE 20 MG TABLET ONE (16:15)
[2019-09-16] MEDS ORDERED: ACETAMINOPHEN 325 MG TABLET (FP) ONE (16:15)
[2019-09-16] MEDS ORDERED: ONDANSETRON *ODT* 4 MG TABLET ONE (16:15)
[2019-09-16 16:28] LABS: ALBUMIN 3.7 g/dl (3.4-5.0); BILIRUBIN,TOTAL 0.4 mg/dL (0.2-1); CALCIUM 9.3 mg/dL (8.5-10.1); CREATININE 0.7 mg/dL (0.55-1.3); POTASSIUM 3.9 mmol/L (3.5-5.1); TOT PROT 7.8 g/dl (6.4-8.2)
--- NOTE | 2019-09-16 18:16 | PDOC ---
*Physical Exam - Vital Signs Last Vital Signs Temp Pulse Resp BP Pulse Ox 98.8 F 75 18 114/59 L 100 09/16/19 13:02 09/16/19 13:02 09/16/19 13:02 09/16/19 13:02 09/16/19 13:02 ED Treatment Course - LABORATORY CBC & Chemistry Diagram: 09/16/19 15:00 09/16/19 15:00 - ADDITIONAL ORDERS Additional order review: Laboratory Results 09/16/19 09/16/19 09/16/19 15:00 15:00 15:00 Sodium 139 Potassium 3.9 Chloride 105 Carbon Dioxide 25 Anion Gap 9 BUN 14.0 Creatinine 0.7 Est GFR (CKD-EPI)AfAm 140.55 Est GFR (CKD-EPI)NonAf 121.27 Random Glucose 81 Calcium 9.3 Magnesium Cancelled Total Bilirubin 0.4 AST 28 ALT 50 Alkaline Phosphatase 120 H Total Protein 7.8 Albumin 3.7 Lipase 129 Urine Color Yellow Urine Appearance Clear Urine pH 5.0 Ur Specific [place] 1.024 Urine Protein Negative Urine Glucose (UA) Negative Urine Ketones Negative Urine Blood Negative Urine Nitrite Negative Urine Bilirubin Negative Urine Urobilinogen 0.2 Ur Leukocyte Esterase Negative Urine HCG, Qual Negative 09/16/19 15:00 RBC 4.38 MCV 92.1 MCHC 33.8 RDW 13.2 MPV 8.0 Neutrophils % 60.2 Lymphocytes % 30.5 D Monocytes % 6.3 Eosinophils % 2.7 D Basophils % 0.3 - Medications Given in the ED: ED Medications Discontinued Medications Generic Name Dose Route Start Last Admin Trade Name Freq PRN Reason Stop Dose Admin Acetaminophen 975 mg 09/16/19 15:51 09/16/19 16:20 Tylenol - PO 09/16/19 15:52 975 mg ONCE ONE Administration Famotidine 20 mg 09/16/19 15:51 09/16/19 16:20 Pepcid - PO 09/16/19 15:52 20 mg ONCE ONE Administration Lidocaine HCl 20 ml 09/16/19 15:52 09/16/19 16:20 Xylocaine 2% Viscous Oral - MM 09/16/19 15:53 20 ml ONCE ONE Administration Ondansetron HCl 4 mg 09/16/19 15:51 09/16/19 16:20 Zofran Odt - SL 09/16/19 15:52 4 mg ONCE ONE Administration Medical Decision Making - Medical Decision Making Patient signed out to me by DAVID Begum Patient currently resting in NAD RUQ sono shows CBD measuring 0.5 cm No other acute findings noted Rest of labs unremarkable Advised f/u with Dr. Brandy coleman for dc 09/16/19 18:14 Discharge - Discharge Information Problems reviewed: Yes Clinical Impression/Diagnosis: RUQ pain Condition: Stable Disposition: HOME - Admission No - Additional Discharge Information Prescription Drug Monitoring Program (I-STOP) results: I-STOP not reviewed - Follow up/Referral Referrals: Shan Nava MD [Staff Physician] - 2 Days - Patient Discharge Instructions Patient Printed Discharge Instructions: DI for Abdominal Pain-Adult Additional Instructions: Thank you for choosing [facility]. It was a pleasure taking care of you. Please follow-up with Dr. Nava for further evaluation of your symptoms Return to the Emergency Department if your symptoms worsen or persist or have other concerning symptoms. - Post Discharge Activity
== END 2019-09-16 18:23 | disposition home or self-care (01) ==
LOC: JER 12:41
DX: R10.11 Right upper quadrant pain (principal); J45.909 Unspecified asthma, uncomplicated; F17.210 Nicotine dependence, cigarettes, uncomplicated
CPT/HCPCS: 36415; 76705-TC; 80053; 81003; 83690; 84703; 85025; 99282-25; Q0162

== ENCOUNTER 2020-03-26 08:58 | Emergency (ER) | payer OTHER ==
[2020-03-26 09:20] VITALS: BMI 32.5
--- NOTE | 2020-03-26 09:20 | PDOC ---
Rapid Medical Evaluation Chief Complaint: Pain Time Seen by Provider: 03/26/20 09:15 Medical Evaluation: Allergies Allergy/AdvReac Type Severity Reaction Status Date / Time No Known Allergies Allergy Verified 09/16/19 13:01 03/26/20 09:15 Pt with PMH of cholecystectomy 07/19, presents for evaluation of abdominal pain, nausea and vomiting. She is also reporting R and L shoulder/arm pain. She states it feels like pins and needles. States the R is worse than the L. Exam: FROM of the b/l arms. Epigastric pain. Orders: labs, EKG, IV Pt to proceed to the ER for further evaluation Discharge Disposition - Diagnosis Arm pain Qualifiers: Laterality: bilateral Qualified Code(s): M79.601 - Pain in right arm; M79.602 - Pain in left arm Abdominal pain Qualifiers: Abdominal location: epigastric Qualified Code(s): R10.13 - Epigastric pain - Discharge Dispostion Disposition: HOME Condition at time of disposition: Stable Decision to Admit order: No - Referrals - Patient Instructions - Post Discharge Activity
[2020-03-26] MEDS ORDERED: METOCLOPRAMIDE HCL INJECTION 10 MG/2 ML VIAL IVPB ONE (09:46)
[2020-03-26] MEDS ORDERED: ACETAMINOPHEN 1000 MG/100 ML VIAL (NON FORMULARY) IVPB ONE (09:46)
[2020-03-26] MEDS ORDERED: METOCLOPRAMIDE HCL INJECTION 10 MG/2 ML VIAL ONE (10:00)
[2020-03-26] MEDS ORDERED: ACETAMINOPHEN INJECTION 100 ML IVPB ONE (10:00)
[2020-03-26 10:27] LABS: BASO % 0.4 % (0-2.0); EOS % 2.3 % (0-4.5); HEMOGLOBIN 13.2 GM/dL (10.7-15.3); MCH 30.4 pg (25.7-33.7); MEAN CELL VOLUME 92.1 fl (80-96); MEAN PLT VOLUME 8.4 fl (7.5-11.1); MONO % 8.1 % (3.8-10.2); NEUT % 53.2 % (42.8-82.8); PLATELET COUNT 315 K/MM3 (134-434); RBC 4.34 M/mm3 (3.60-5.2); RDW 12.7 % (11.6-15.6); WHITE BLOOD COUNT 7.2 K/mm3 (4.0-10.0)
[2020-03-26 10:32] LABS: EPI CELLS >36 /uL (0-25.1); HYALINE CASTS 4 /uL (0-3.1); URINE APPEARANCE CLOUDY; URINE BACTERIA 690 /uL (0-1359); URINE BILIRUBIN NEGATIVE (NEGATIVE); URINE COLOR DK YELLOW; URINE GLUCOSE (UA) NEGATIVE (NEGATIVE); URINE KETONE NEGATIVE (NEGATIVE); URINE LEUK ESTERASE TRACE (NEGATIVE); URINE NITRITE NEGATIVE (NEGATIVE); URINE PROTEIN NEGATIVE (NEGATIVE); URINE WBC 30 /uL (0-25.8)
[2020-03-26 10:33] LABS: HCG,QUALITATIVE URINE Negative
[2020-03-26 10:54] LABS: ALBUMIN 3.4 g/dl (3.4-5.0); BILIRUBIN,TOTAL 0.4 mg/dL (0.2-1); BLOOD UREA NITROGEN 11.8 mg/dL (7-18); CALCIUM 8.7 mg/dL (8.5-10.1); CREATININE 0.7 mg/dL (0.55-1.3); POTASSIUM 4.1 mmol/L (3.5-5.1); TOT PROT 7.3 g/dl (6.4-8.2)
[2020-03-26 11:04] LABS: URINE RBC 16.8 /uL (0-23.9)
[2020-03-26] MEDS ORDERED: KETOROLAC TROMETHAMINE 30 MG/1 ML VIAL IVPUSH ONE (12:38)
--- NOTE | 2020-03-26 12:38 | PDOC ---
Documentation entered by Annalee Mai SCRIBE, acting as scribe for Martín Edmonds MD. Martín Edmonds MD: This documentation has been prepared by the Sergei vázquez Brenda, SCRIBE, under my direction and personally reviewed by me in its entirety. I confirm that the documentation accurately reflects all work, treatment, procedures, and medical decision making performed by me. History of Present Illness - General Chief Complaint: Pain Stated Complaint: ABD PAIN Time Seen by Provider: 03/26/20 09:15 History Source: Patient Exam Limitations: No Limitations - History of Present Illness Initial Comments: 03/26/20 09:42 The patient is a 24 year old female with no significant PMH who presents to the emergency department for evaluation of 1 week of constant right arm pain and numbness. She reports that about 1 week ago, she started having right neck and shoulder pain that began radiating down her arm to her wrist and fingers. The patient reports that the pain is worse in the morning and it is difficult for her to lift her arm. Also endorsing intermittent stabbing epigastric abdominal pain. Also states having a recent 2 week headache. The patient denies chest pain, shortness of breath and dizziness. Denies fever, chills, nausea, vomiting, diarrhea and constipation. Denies dysuria, frequency, urgency and hematuria. Allergies: NKA Social history: Tobacco use (1-2 a week) No reported hx of alcohol use or illicit drug use. PCP: None ([facility]) Past History - Medical History Allergies/Adverse Reactions: Allergies Allergy/AdvReac Type Severity Reaction Status Date / Time No Known Allergies Allergy Verified 03/26/20 10:12 Home Medications: Ambulatory Orders Cephalexin [Keflex] 500 mg PO BID 7 Days #14 capsule 03/26/20 Asthma: Yes (last attack in November 2018) Cancer: No Cardiac Disorders: No COPD: No Diabetes: No GI Disorders: Yes (cholelithiasis) HTN: No Seizures: No Thyroid Disease: No - Surgical History Abdominal Surgery: Yes Appendectomy: Yes Cholecystectomy: No - Reproductive History (#): 0 Para: 0 Cervical CA: No Dysfunctional Uterine Bleeding: No Ectopic : No Endometrial CA: No Polycystic Ovaries: No Therapeutic (s) & number: Yes (x1) Tubal Ligation: No - Immunization History Immunization Up to Date: Yes - Psycho-Social/Smoking History Smoking Status: No Smoking History: Never smoked Have you smoked in the past 12 months: Yes Number of Cigarettes Smoked Daily: 1 If you are a former smoker, when did you quit?: 08/17 Information on smoking cessation initiated: No - Substance Abuse Hx (Audit-C & DAST Scrn) How often the patient has a drink containing alcohol: Never Score: In Men: 4 or > Positive; In Women: 3 or > Positive: 0 Screen Result (Pos requires Nsg. Audit-10AR): Negative In the last yr the pt used illegal drug/Rx for NonMed reason: No Score: Yes response is considered Positive: 0 Screen Result (Positive result requires Nsg. DAST-10): Negative *Physical Exam - Vital Signs Last Vital Signs Temp Pulse Resp BP Pulse Ox 98.5 F 81 16 122/53 L 99 03/26/20 09:15 03/26/20 09:15 03/26/20 09:15 03/26/20 09:15 03/26/20 09:15 - Physical Exam 03/26/20 09:51 Vitals: Triage vital signs reviewed General Appearance: No acute distress, well nourished, well developed Neck: Supple; No nuchal rigidity Chest Wall: Nontender Cardiac: Regular rate and rhythm, no murmurs, no rubs, no gallops Lungs: Clear to auscultation bilateral, good air movement bilaterally Abdomen: (+) Moderate epigastric tenderness to palpation. Soft, nondistended, normal bowel sounds. Extremities: (+) Reproducible pain to the right lateral side of the neck, right shoulder and right arm. Full range of motion to all extremities, no cyanosis, clubbing, or edema. Skin: Warm and dry, no rashes or lesions, no rash, no petechiae Neuro: (+) Subjective difference in sensation to the right upper extremity however feel sensation. AOX3; Cranial Nerves 2-12 grossly intact, Strength intact to all extremities, Sensation intact to all extremities, gait normal. Psych: Normal mood, normal affect ED Treatment Course - LABORATORY CBC & Chemistry Diagram: 03/26/20 09:54 03/26/20 09:54 Medical Decision Making - Medical Decision Making 03/26/20 15:28 24 years old multiple complaints headache neck arm discomfort worse in the mo rning as well as 1 week history of epigastric discomfort in the distribution of where she had her cholecystectomy approximately July 2019 In the ED received pain medication imaging which demonstrates no acute pathology her labs are notable only for urinary tract infection Patient feels somewhat better after meds. We have arranged for the patient to follow-up in our clinic as well as with orthopedics for her arm and shoulder discomfort. We have recommended that she wears a wrist splint at all times while sleeping naproxen for 3 days for pain and Keflex for UTI Findings, the need for follow-up and strict return instructions discussed with patient. Discharge - Discharge Information Problems reviewed: Yes Clinical Impression/Diagnosis: Arm pain Qualifiers: Laterality: bilateral Qualified Code(s): M79.601 - Pain in right arm Abdominal pain Qualifiers: Abdominal location: epigastric Qualified Code(s): R10.13 - Epigastric pain Condition: Stable Disposition: HOME - Admission No - Additional Discharge Information Prescriptions: Cephalexin [Keflex] 500 mg PO BID 7 Days #14 capsule - Follow up/Referral Referrals: Xavier Powers MD [Staff Physician] - Raj Wade DO [Staff Physician] - - Patient Discharge Instructions Patient Printed Discharge Instructions: DI for Arm Pain, DI for Epigastric Pain Additional Instructions: Take [id number] naproxen and [id number] Pepcid as directed on package for 3 days. Take Keflex as prescribed. Follow-up with [facility] you will receive a phone call to schedule your appointment. For your arm pain, follow up with orthopedics. Rest. Wear wrist splint at all times. Return to ED for any fever severe worsening symptoms or for any concerns. - Post Discharge Activity
[2020-03-26] MEDS ORDERED: KETOROLAC TROMETHAMINE 30 MG/1 ML VIAL ONE (13:02)
[2020-03-26 13:50] VITALS: BP 106/59; PULSE 77; TEMP 97.9
--- NOTE | 2020-03-27 09:21 | EKG ---
Test Reason : Blood Pressure : / mmHG Vent. Rate : 068 BPM Atrial Rate : 068 BPM P-R Int : 142 ms QRS Dur : 088 ms QT Int : 386 ms P-R-T Axes : 058 077 026 degrees QTc Int : 410 ms NORMAL SINUS RHYTHM NORMAL ECG WHEN COMPARED WITH ECG OF 06-FEB-2020 21:47, NO SIGNIFICANT CHANGE WAS FOUND Confirmed by MD KATHY, CLIFTON ([id number]) on 03/27/2020 9:20:50 AM Referred By: Confirmed By:CLIFTON CHAVEZ MD
== END 2020-03-26 16:02 | disposition home or self-care (01) ==
LOC: JER 08:58
PROC: 3E033NZ Introduction of Analgesics, Hypnotics, Sedatives into Peripheral Vein, Percutaneous Approach (ICD-10-PCS; principal; 2020-03-26)
PROC: 3E033GC Introduction of Other Therapeutic Substance into Peripheral Vein, Percutaneous Approach (ICD-10-PCS; 2020-03-26)
DX: M79.601 Pain in right arm (principal); R10.13 Epigastric pain
CPT/HCPCS: 36415; 70450-TC; 72125-TC; 73030-TC-RT-FY; 73110-TC-RT-FY; 73130-TC-RT-FY; 74177-TC; 80053; 81003; 83690; 84703; 85025; 87086; 93005; 93010; 99285-25; J0131; Q9967

== ENCOUNTER 2020-12-29 15:10 | Emergency (ER) | payer OTHER ==
[2020-12-29 15:22] VITALS: BP 102/66; PULSE 97; TEMP 97.8; BMI 36.0
[2020-12-29] MEDS ORDERED: FAMOTIDINE 20 MG/50 ML IVPB 20 MG/50 ML MG IVPB ONE ×2 (16:19→18:19)
[2020-12-29] MEDS ORDERED: ONDANSETRON 4 MG/2 ML VIAL IVPUSH ONE (16:19)
[2020-12-29] MEDS ORDERED: SODIUM CHLORIDE 1,000 ML IV STA (16:19)
[2020-12-29] MEDS ORDERED: ACETAMINOPHEN 1000 MG/100 ML VIAL (NON FORMULARY) IVPB ONE (16:19)
[2020-12-29 17:37] LABS: BASO % 0.4 % (0-2.0); EOS % 1.5 % (0-4.5); HEMATOCRIT 43.8 % (32.4-45.2); HEMOGLOBIN 14.7 GM/dL (10.7-15.3); LYMPH % 27.3 % (8-40); MCH 31.8 pg (25.7-33.7); MCHC 33.7 g/dl (32.0-36.0); MEAN CELL VOLUME 94.4 fl (80-96); MONO % 6.2 % (3.8-10.2); NEUT % 64.6 % (42.8-82.8); PLATELET COUNT 281 K/MM3 (134-434); RBC 4.64 M/mm3 (3.60-5.2); RDW 13.1 % (11.6-15.6); WHITE BLOOD COUNT 9.9 K/mm3 (4.0-10.0)
[2020-12-29 17:47] LABS: EPI CELLS >36 /uL (0-25.1); HCG,QUALITATIVE URINE Negative; HYALINE CASTS 3 /uL (0-3.1); PH,URINE >= 9.0 (5.0-8.0); URINE APPEARANCE CLEAR; URINE BACTERIA 1465 /uL (0-1359); URINE BILIRUBIN NEGATIVE (NEGATIVE); URINE COLOR YELLOW; URINE GLUCOSE (UA) NEGATIVE (NEGATIVE); URINE KETONE NEGATIVE (NEGATIVE); URINE LEUK ESTERASE 1+ (NEGATIVE); URINE NITRITE NEGATIVE (NEGATIVE); URINE PROTEIN TRACE (NEGATIVE); URINE RBC 9 /uL (0-23.9); URINE WBC 51 /uL (0-25.8)
[2020-12-29 17:53] LABS: INR 1.15 (0.83-1.09); PROTHROMBIN TIME (PATIENT) 13.8 SEC (9.7-13.0)
[2020-12-29 17:57] LABS: BLOOD UREA NITROGEN 9.4 mg/dL (7-18); CALCIUM 9.4 mg/dL (8.5-10.1)
[2020-12-29 18:00] LABS: CREATININE 0.8 mg/dL (0.55-1.3)
[2020-12-29 18:02] LABS: BILIRUBIN,TOTAL 0.5 mg/dL (0.2-1); TOT PROT 8.2 g/dl (6.4-8.2)
[2020-12-29] MEDS ORDERED: ACETAMINOPHEN INJECTION 100 ML IVPB ONE (18:19)
[2020-12-29] MEDS ORDERED: ONDANSETRON 4 MG/2 ML VIAL ONE (18:19)
[2020-12-29] MEDS ORDERED: PANTOPRAZOLE SODIUM 40 MG VIAL IVPB ONE (18:31)
[2020-12-29] MEDS ORDERED: METOCLOPRAMIDE HCL INJECTION 10 MG/2 ML VIAL IVPB ONE (18:32)
[2020-12-29] MEDS ORDERED: PANTOPRAZOLE SODIUM 40 MG/100 ML BAG IVPB ONE (19:14)
[2020-12-29] MEDS ORDERED: morphine CARPU-JECT 4 MG/1 ML DISP.SYRIN IVPUSH ONE (20:22)
[2020-12-29] MEDS ORDERED: morphine SULFATE 4 MG/ML VIAL ONE (21:34)
[2020-12-29] MEDS ORDERED: CEPHALEXIN MONOHYDRATE 500 MG CAPSULE (UD) PO ONE (23:02)
[2020-12-29] MEDS ORDERED: IBUPROFEN 600 MG TABLET (FP) PO ONE ×2 (23:02→23:07)
[2020-12-29] MEDS ORDERED: CEPHALEXIN MONOHYDRATE 500 MG CAPSULE (UD) ONE (23:06)
[2020-12-29] MEDS ORDERED: ONDANSETRON *ODT* 4 MG TABLET ONE (23:13)
[2020-12-29] MEDS ORDERED: ONDANSETRON *ODT* 4 MG TABLET SL ONE (23:13)
== END 2020-12-29 23:22 | disposition home or self-care (01) ==
LOC: JER 15:10
PROC: 3E0333Z Introduction of Anti-inflammatory into Peripheral Vein, Percutaneous Approach (ICD-10-PCS; principal; 2020-12-29)
PROC: 3E033GC Introduction of Other Therapeutic Substance into Peripheral Vein, Percutaneous Approach (ICD-10-PCS; 2020-12-29)
PROC: 3E033NZ Introduction of Analgesics, Hypnotics, Sedatives into Peripheral Vein, Percutaneous Approach (ICD-10-PCS; 2020-12-29)
PROC: 3E033GC Introduction of Other Therapeutic Substance into Peripheral Vein, Percutaneous Approach (ICD-10-PCS; 2020-12-29)
PROC: 3E033GC Introduction of Other Therapeutic Substance into Peripheral Vein, Percutaneous Approach (ICD-10-PCS; 2020-12-29)
PROC: 3E0337Z Introduction of Electrolytic and Water Balance Substance into Peripheral Vein, Percutaneous Approach (ICD-10-PCS; 2020-12-29)
DX: N30.00 Acute cystitis without hematuria (principal); N83.201 Unspecified ovarian cyst, right side; N83.202 Unspecified ovarian cyst, left side
CPT/HCPCS: 36415; 74177-TC; 76830-TC; 80053; 81003; 83605; 83690; 84703; 85025; 85610; 87077; 87086; 99285-25; C9803; J0131; Q0162; Q9967; U0003; U0005

== ENCOUNTER 2021-04-07 17:27 | Emergency (ER) | payer OTHER ==
[2021-04-07 17:42] VITALS: BP 118/79; PULSE 85; TEMP 97.9; BMI 40.0
[2021-04-07] MEDS ORDERED: FAMOTIDINE 20 MG/50 ML IVPB 20 MG/50 ML MG IVPB ONE ×2 (18:29→18:34)
[2021-04-07 18:53] LABS: PH,URINE 6.5 (5.0-8.0); URINE APPEARANCE CLEAR; URINE BILIRUBIN NEGATIVE (NEGATIVE); URINE COLOR YELLOW; URINE GLUCOSE (UA) NEGATIVE (NEGATIVE); URINE KETONE NEGATIVE (NEGATIVE); URINE LEUK ESTERASE NEGATIVE (NEGATIVE); URINE NITRITE NEGATIVE (NEGATIVE); URINE PROTEIN NEGATIVE (NEGATIVE); URINE UROBILINOGEN 0.2 mg/dL (0.2-1.0)
[2021-04-07 19:11] LABS: BASO % 0.3 % (0-2.0); EOS % 0.6 % (0-4.5); HEMATOCRIT 41.1 % (32.4-45.2); HEMOGLOBIN 14.1 GM/dL (10.7-15.3); LYMPH % 24.9 % (8-40); MCH 32.7 pg (25.7-33.7); MCHC 34.2 g/dl (32.0-36.0); MEAN CELL VOLUME 95.6 fl (80-96); MEAN PLT VOLUME 8.8 fl (7.5-11.1); MONO % 6.4 % (3.8-10.2); NEUT % 67.8 % (42.8-82.8); PLATELET COUNT 275 10^3/uL (134-434); RDW 13.1 % (11.6-15.6); WHITE BLOOD COUNT 11.3 K/mm3 (4.0-10.0)
[2021-04-07 19:24] LABS: ALBUMIN 3.9 g/dl (3.4-5.0); BLOOD UREA NITROGEN 13.5 mg/dL (7-18); CALCIUM 9.1 mg/dL (8.5-10.1)
[2021-04-07 19:27] LABS: CREATININE 0.7 mg/dL (0.55-1.3)
[2021-04-07 19:29] LABS: BILIRUBIN,TOTAL 0.6 mg/dL (0.2-1); TOT PROT 7.9 g/dl (6.4-8.2)
== END 2021-04-07 20:50 | disposition home or self-care (01) ==
LOC: JER 17:27
PROC: 3E02329 Introduction of Other Anti-infective into Muscle, Percutaneous Approach (ICD-10-PCS; principal; 2021-04-07)
PROC: 3E033NZ Introduction of Analgesics, Hypnotics, Sedatives into Peripheral Vein, Percutaneous Approach (ICD-10-PCS; 2021-04-07)
DX: N73.9 Female pelvic inflammatory disease, unspecified (principal)
CPT/HCPCS: 36415; 76830-TC; 80053; 81003; 83690; 84703; 85025; 87070; 87077; 87086; 87205; 87491; 87591; 99284-25

== ENCOUNTER 2021-09-04 13:21 | Emergency (ER) | payer OTHER ==
[2021-09-04 14:36] VITALS: BP 96/66; PULSE 115; TEMP 99; BMI 41.0
[2021-09-04] MEDS ORDERED: ACETAMINOPHEN 500 MG TABLET (FP) PO ONE (17:46)
[2021-09-04] MEDS ORDERED: KETOROLAC TROMETHAMINE 30 MG/1 ML VIAL IM ONE (18:04)
[2021-09-04] MEDS ORDERED: ACETAMINOPHEN 325 MG TABLET (FP) ONE (18:10)
[2021-09-04] MEDS ORDERED: KETOROLAC TROMETHAMINE 30 MG/1 ML VIAL ONE (18:10)
[2021-09-04 19:35] LABS: EPI CELLS 32 /uL (0-25.1); HCG,QUALITATIVE URINE Negative; HYALINE CASTS 2 /uL (0-3.1); PH,URINE 5.5 (5.0-8.0); URINE APPEARANCE CLEAR; URINE BACTERIA 820 /uL (0-1359); URINE BILIRUBIN NEGATIVE (NEGATIVE); URINE COLOR YELLOW; URINE GLUCOSE (UA) NEGATIVE (NEGATIVE); URINE KETONE 1+ (NEGATIVE); URINE LEUK ESTERASE NEGATIVE (NEGATIVE); URINE NITRITE NEGATIVE (NEGATIVE); URINE PROTEIN TRACE (NEGATIVE); URINE RBC 47 /uL (0-23.9); URINE WBC 8 /uL (0-25.8)
[2021-09-04] MEDS ORDERED: LIDOCAINE HCL 2% (20ML MULTI-DOSE VIAL) ONE (21:58)
[2021-09-05 18:07] LABS: SARS-CoV-2 NAA Detected (Not Detected)
== END 2021-09-04 22:38 | disposition home or self-care (01) ==
LOC: JER 13:21
PROC: 3E02329 Introduction of Other Anti-infective into Muscle, Percutaneous Approach (ICD-10-PCS; principal; 2021-09-04)
PROC: 3E0233Z Introduction of Anti-inflammatory into Muscle, Percutaneous Approach (ICD-10-PCS; 2021-09-04)
DX: R10.30 Lower abdominal pain, unspecified (principal)
CPT/HCPCS: 36415; 81003; 84703; 87086; 87491; 87591; 87661; 87804; 87807; 99284-25; C9803; U0003; U0005

== ENCOUNTER 2022-09-20 05:06 | Observation (INO) | payer OTHER ==
[2022-09-20] MEDS ORDERED: SODIUM CHLORIDE 0.9% 500 ML INFUS.BAG IV ONE (05:38)
[2022-09-20] MEDS ORDERED: ACETAMINOPHEN 1000 MG/100 ML BAG IVPB ONE (05:38)
[2022-09-20] MEDS ORDERED: MAG HYDROX/AL HYDROX/SIMETH 30 ML UNIT-DOSE CUP PO ONE (05:38)
[2022-09-20] MEDS ORDERED: ONDANSETRON 4 MG/2 ML VIAL IVPUSH ONE (05:38)
[2022-09-20] MEDS ORDERED: FAMOTIDINE 20 MG TABLET PO ONE (05:38)
[2022-09-20 05:56] LABS: BASO % 0.3 % (0-2.0); EOS % 1.3 % (0-4.5); HEMATOCRIT 41.1 % (32.4-45.2); HEMOGLOBIN 13.6 GM/dL (10.7-15.3); LYMPH % 9.4 % (8-40); MCH 31.1 pg (25.7-33.7); MCHC 33.1 g/dl (32.0-36.0); MEAN CELL VOLUME 93.8 fl (80-96); MEAN PLT VOLUME 8.3 fl (7.5-11.1); PLATELET COUNT 289 10^3/uL (134-434); RBC 4.38 M/mm3 (3.60-5.2)
[2022-09-20 06:04] LABS: PH,URINE 5.5 (5.0-8.0); URINE APPEARANCE CLOUDY; URINE BILIRUBIN 1+ (NEGATIVE); URINE COLOR DK YELLOW; URINE GLUCOSE (UA) NEGATIVE (NEGATIVE); URINE KETONE TRACE (NEGATIVE); URINE LEUK ESTERASE NEGATIVE (NEGATIVE); URINE NITRITE NEGATIVE (NEGATIVE); URINE PROTEIN TRACE (NEGATIVE)
[2022-09-20] MEDS ORDERED: MAG HYDROX/AL HYDROX/SIMETH 30 ML UNIT-DOSE CUP ONE (06:04)
[2022-09-20] MEDS ORDERED: FAMOTIDINE 20 MG TABLET ONE (06:04)
[2022-09-20] MEDS ORDERED: ACETAMINOPHEN INJECTION 100 ML IVPB ONE (06:04)
[2022-09-20] MEDS ORDERED: ONDANSETRON 4 MG/2 ML VIAL ONE (06:05)
[2022-09-20 06:15] LABS: CHLORIDE 108 mmol/L (98-107); SODIUM 142 mmol/L (136-145)
[2022-09-20 06:17] LABS: CALCIUM 8.6 mg/dL (8.5-10.1)
[2022-09-20 06:18] LABS: ALBUMIN 3.5 g/dl (3.4-5.0); ANION GAP 9 MMOL/L (8-16); BLOOD UREA NITROGEN 14.1 mg/dL (7-18); CO2 25 mmol/L (21-32); GLUCOSE,RANDOM 106 mg/dL (74-106); LIPASE 69 U/L (73-393)
[2022-09-20 06:20] LABS: CREATININE 0.7 mg/dL (0.55-1.3)
[2022-09-20 06:21] LABS: SGOT/AST 43 U/L (15-37); SGPT/ALT 52 U/L (13-61)
[2022-09-20 06:22] LABS: BILIRUBIN,TOTAL 0.7 mg/dL (0.2-1); TOT PROT 7.3 g/dl (6.4-8.2)
[2022-09-20 06:24] LABS: ALK PHOS 100 U/L (45-117)
[2022-09-20] MEDS ORDERED: morphine CARPU-JECT 4 MG/1 ML DISP.SYRIN IVPUSH ONE (08:10)
[2022-09-20] MEDS ORDERED: morphine SULFATE 4 MG/ML VIAL ONE (08:16)
[2022-09-20] MEDS ORDERED: METOCLOPRAMIDE HCL INJECTION 10 MG/2 ML VIAL IVPUSH ONE (09:16)
[2022-09-20] MEDS ORDERED: LACTATED RINGERS SOLUTION 1000 ML INFUS.BAG IV ONE (09:16)
[2022-09-20] MEDS ORDERED: METOCLOPRAMIDE HCL INJECTION 10 MG/2 ML VIAL ONE (09:28)
[2022-09-20] MEDS ORDERED: SODIUM CHLORIDE 1,000 ML IV STA (11:09)
[2022-09-20] MEDS ORDERED: CEFTRIAXONE 1 GM in DEXTROSE 5%-WATER - 50 ML IVPB ONE (14:24)
[2022-09-20] MEDS ORDERED: SODIUM CHLORIDE 1,000 ML IV SCH (14:30)
[2022-09-20] MEDS ORDERED: CEFTRIAXONE 1 GM/50 ML BAG ONE (14:54)
[2022-09-20 19:47] VITALS: BMI 47.9
[2022-09-20] MEDS: ONDANSETRON 4 MG/2 ML VIAL IVPUSH PRN (19:56)
[2022-09-20] MEDS ORDERED: ACETAMINOPHEN 1000 MG/100 ML BAG IVPB PRN (20:07)
[2022-09-21] MEDS: MELATONIN 5 MG TABLETS PO PRN ×3 (01:21→23:33)
[2022-09-21] MEDS: ONDANSETRON 4 MG/2 ML VIAL IVPUSH PRN ×2 (10:55→20:17)
[2022-09-21] MEDS: ENOXAPARIN NA (PORCINE) 40 MG/0.4 ML DISP.SYRIN SQ SCH (10:55)
[2022-09-21] MEDS: MAG HYDROX/AL HYDROX/SIMETH 30 ML UNIT-DOSE CUP PO PRN ×2 (10:55→20:34)
[2022-09-21 10:59] LABS: CALCIUM 8.4 mg/dL (8.5-10.1)
[2022-09-21 11:03] LABS: BLOOD UREA NITROGEN 4.7 mg/dL (7-18)
[2022-09-21 11:06] LABS: CREATININE 0.6 mg/dL (0.55-1.3)
[2022-09-21] MEDS ORDERED: ALBUTEROL SO4 HFA INHALER IH PRN (11:29)
[2022-09-21] MEDS: PIPERACILLIN/TAZOB 3.375 GM 3.375 GM in DEXTROSE 5%-WATER - 50 ML IVPB SCH ×2 (13:45→19:26)
[2022-09-21] MEDS: LACTATED RINGERS SOLUTION 1,000 ML/1,000 ML INFUS.BAG IV SCH (14:14)
[2022-09-22] MEDS: PIPERACILLIN/TAZOB 3.375 GM 3.375 GM in DEXTROSE 5%-WATER - 50 ML IVPB SCH ×2 (01:47→10:24)
[2022-09-22] MEDS: ENOXAPARIN NA (PORCINE) 40 MG/0.4 ML DISP.SYRIN SQ SCH (10:25)
[2022-09-22] MEDS: LACTATED RINGERS SOLUTION 1,000 ML/1,000 ML INFUS.BAG IV SCH (10:30)
[2022-09-22 11:27] LABS: BASO % 0.4 % (0-2.0); EOS % 5.8 % (0-4.5); HEMATOCRIT 37.8 % (32.4-45.2); HEMOGLOBIN 12.7 GM/dL (10.7-15.3); LYMPH % 39.5 % (8-40); MCH 31.5 pg (25.7-33.7); MCHC 33.6 g/dl (32.0-36.0); MEAN CELL VOLUME 93.7 fl (80-96); MEAN PLT VOLUME 8.6 fl (7.5-11.1); MONO % 12.4 % (3.8-10.2); NEUT % 41.9 % (42.8-82.8); PLATELET COUNT 281 10^3/uL (134-434); RBC 4.03 M/mm3 (3.60-5.2); RDW 12.7 % (11.6-15.6); WHITE BLOOD COUNT 5.4 K/mm3 (4.0-10.0)
[2022-09-22] MEDS: FLUTICASONE/SALMETEROL 100 MCG/50 MCG DISKUS IH SCH ×2 (11:33→22:48)
[2022-09-22] MEDS ORDERED: ACETAMINOPHEN 1000 MG/100 ML BAG IVPB ONE (20:28)
[2022-09-22 21:34] VITALS: RESP 20
[2022-09-22] MEDS: ONDANSETRON 4 MG/2 ML VIAL IVPUSH PRN (21:41)
[2022-09-22] MEDS ORDERED: INSULIN (NOVOLOG) ASPART 100 UNITS/ML 10ML VIAL ONE (22:18)
[2022-09-23] MEDS: MELATONIN 5 MG TABLETS PO PRN (00:10)
[2022-09-23] MEDS: ONDANSETRON 4 MG/2 ML VIAL IVPUSH PRN (04:46)
[2022-09-23] MEDS ORDERED: ACETAMINOPHEN 1000 MG/100 ML BAG IVPB ONE (06:39)
[2022-09-23] MEDS: MAG HYDROX/AL HYDROX/SIMETH 30 ML UNIT-DOSE CUP PO PRN (06:40)
[2022-09-23] MEDS ORDERED: INSULIN (NOVOLOG) ASPART 100 UNITS/ML 10ML VIAL ONE (06:49)
[2022-09-23] MEDS: FLUTICASONE/SALMETEROL 100 MCG/50 MCG DISKUS IH SCH (09:29)
[2022-09-23] MEDS: ENOXAPARIN NA (PORCINE) 40 MG/0.4 ML DISP.SYRIN SQ SCH (09:29)
[2022-09-23 10:58] VITALS: BP 126/75; PULSE 73; TEMP 97.7
== END 2022-09-23 11:02 | disposition home or self-care (01) ==
LOC: JER 05:06 → JERBED 11:28 → J8W 18:48
PROVIDERS: ADMIT Internal Medicine; ATTEND Nurse Practitioner Acute Care
PROC: 3E0337Z Introduction of Electrolytic and Water Balance Substance into Peripheral Vein, Percutaneous Approach (ICD-10-PCS; principal; 2022-09-20)
PROC: 3E033GC Introduction of Other Therapeutic Substance into Peripheral Vein, Percutaneous Approach (ICD-10-PCS; 2022-09-20)
PROC: 3E033NZ Introduction of Analgesics, Hypnotics, Sedatives into Peripheral Vein, Percutaneous Approach (ICD-10-PCS; 2022-09-20)
DX: A08.2 Adenoviral enteritis (principal); E66.01 Morbid (severe) obesity due to excess calories; Z68.41 Body mass index [BMI] 40.0-44.9, adult
CPT/HCPCS: 0241U-QW; 36415; 74177-TC; 80048; 80053; 81003; 83690; 84702; 85025; 87045; 87046; 87086; 87205; 87324; 87425; 87449; 93005; 93010; 96361; 96374; 96375; 96376; 99285-25; G0378; Q9967

== ENCOUNTER 2023-01-06 15:50 | Emergency (ER) | payer OTHER ==
[2023-01-06 15:59] VITALS: BP 115/55; PULSE 97; RESP 20; TEMP 98.1; BMI 32.3
[2023-01-06] MEDS ORDERED: FAMOTIDINE 20 MG/50 ML IVPB 20 MG/50 ML MG IVPB ONE ×2 (17:06→17:22)
[2023-01-06] MEDS ORDERED: ACETAMINOPHEN 1000 MG/100 ML BAG IVPB ONE (17:06)
[2023-01-06] MEDS ORDERED: MAG HYDROX/AL HYDROX/SIMETH 30 ML UNIT-DOSE CUP PO PRN (17:06)
[2023-01-06] MEDS ORDERED: MAG HYDROX/AL HYDROX/SIMETH 30 ML UNIT-DOSE CUP ONE (17:22)
[2023-01-06] MEDS ORDERED: ACETAMINOPHEN INJECTION 100 ML IVPB ONE (17:22)
[2023-01-06] MEDS ORDERED: SODIUM CHLORIDE 0.9% 500 ML INFUS.BAG IV ONE (18:03)
[2023-01-06 18:24] LABS: URINE APPEARANCE CLEAR; URINE BILIRUBIN NEGATIVE (NEGATIVE); URINE COLOR DK YELLOW; URINE GLUCOSE (UA) NEGATIVE (NEGATIVE); URINE KETONE NEGATIVE (NEGATIVE); URINE LEUK ESTERASE NEGATIVE (NEGATIVE); URINE NITRITE NEGATIVE (NEGATIVE); URINE PROTEIN NEGATIVE (NEGATIVE)
[2023-01-06 20:41] LABS: POTASSIUM 3.7 mmol/L (3.5-5.1)
[2023-01-06 20:44] LABS: ALBUMIN 3.4 g/dl (3.4-5.0); BLOOD UREA NITROGEN 9.9 mg/dL (7-18); CALCIUM 8.5 mg/dL (8.5-10.1)
[2023-01-06 20:47] LABS: CREATININE 0.6 mg/dL (0.55-1.3)
[2023-01-06 20:49] LABS: BILIRUBIN,TOTAL 0.5 mg/dL (0.2-1); TOT PROT 7.3 g/dl (6.4-8.2)
[2023-01-06 21:52] LABS: BASO % 0.4 % (0-2.0); HEMATOCRIT 37.8 % (32.4-45.2); HEMOGLOBIN 12.8 GM/dL (10.7-15.3); LYMPH % 39.3 % (8-40); MCH 31.3 pg (25.7-33.7); MCHC 33.7 g/dl (32.0-36.0); MEAN CELL VOLUME 92.7 fl (80-96); MEAN PLT VOLUME 7.7 fl (7.5-11.1); MONO % 6.6 % (3.8-10.2); NEUT % 51.7 % (42.8-82.8); PLATELET COUNT 336 10^3/uL (134-434); RBC 4.08 M/mm3 (3.60-5.2); RDW 12.9 % (11.6-15.6); WHITE BLOOD COUNT 8.7 K/mm3 (4.0-10.0)
[2023-01-06 23:53] LABS: POTASSIUM 4.1 mmol/L (3.5-5.1)
[2023-01-07 00:29] LABS: ALBUMIN 3.4 g/dl (3.4-5.0); BILIRUBIN,TOTAL 0.6 mg/dL (0.2-1); BLOOD UREA NITROGEN 9.9 mg/dL (7-18); CALCIUM 8.6 mg/dL (8.5-10.1); CREATININE 0.6 mg/dL (0.55-1.3); TOT PROT 7.2 g/dl (6.4-8.2)
== END 2023-01-06 22:17 | disposition home or self-care (01) ==
LOC: JER 15:50
PROC: 3E033GC Introduction of Other Therapeutic Substance into Peripheral Vein, Percutaneous Approach (ICD-10-PCS; principal; 2023-01-06)
PROC: 3E033GC Introduction of Other Therapeutic Substance into Peripheral Vein, Percutaneous Approach (ICD-10-PCS; 2023-01-06)
DX: R10.13 Epigastric pain (principal); R30.0 Dysuria; R35.0 Frequency of micturition; R10.11 Right upper quadrant pain
CPT/HCPCS: 36415; 80053; 81003; 83690; 84703; 85025; 87086; 87491; 87591; 99284-25

== ENCOUNTER 2023-03-02 12:44 | Emergency (ER) | payer OTHER ==
[2023-03-02 12:50] VITALS: BP 115/73; PULSE 92; RESP 18; TEMP 98
[2023-03-02 12:53] VITALS: BMI 42.5
[2023-03-02 13:54] LABS: EPI CELLS 9 /uL (0-25.1); HYALINE CASTS 2 /uL (0-3.1); PH,URINE 8.5 (5.0-8.0); URINE APPEARANCE CLEAR; URINE BACTERIA 461 /uL (0-1359); URINE BILIRUBIN NEGATIVE (NEGATIVE); URINE COLOR YELLOW; URINE GLUCOSE (UA) NEGATIVE (NEGATIVE); URINE KETONE NEGATIVE (NEGATIVE); URINE LEUK ESTERASE 1+ (NEGATIVE); URINE NITRITE NEGATIVE (NEGATIVE); URINE PROTEIN NEGATIVE (NEGATIVE); URINE RBC 28 /uL (0-23.9); URINE WBC 174 /uL (0-25.8)
[2023-03-02 13:55] LABS: HCG,QUALITATIVE URINE Negative
== END 2023-03-02 14:28 | disposition home or self-care (01) ==
LOC: JER 12:44
DX: R31.9 Hematuria, unspecified (principal); R30.0 Dysuria; R35.0 Frequency of micturition; M54.9 Dorsalgia, unspecified; R51.9 Headache, unspecified; N30.01 Acute cystitis with hematuria
CPT/HCPCS: 81003; 84703; 87086; 87186; 99283-25

== ENCOUNTER 2023-05-10 12:44 | Emergency (ER) | payer OTHER ==
[2023-05-10 12:49] VITALS: BP 105/54; PULSE 79; RESP 18; TEMP 98; BMI 43.0
[2023-05-10 15:52] LABS: EPI CELLS 19 /uL (0-25.1); HCG,QUALITATIVE URINE Negative; HYALINE CASTS 1 /uL (0-3.1); PH,URINE 6.5 (5.0-8.0); URINE APPEARANCE CLEAR; URINE BACTERIA 15 /uL (0-1359); URINE BILIRUBIN NEGATIVE (NEGATIVE); URINE COLOR YELLOW; URINE GLUCOSE (UA) NEGATIVE (NEGATIVE); URINE KETONE TRACE (NEGATIVE); URINE LEUK ESTERASE 1+ (NEGATIVE); URINE NITRITE NEGATIVE (NEGATIVE); URINE PROTEIN NEGATIVE (NEGATIVE); URINE RBC 16 /uL (0-23.9); URINE WBC 37 /uL (0-25.8)
[2023-05-10] MEDS ORDERED: DOXYCYCLINE HYCLATE 100 MG CAPSULE PO ONE ×2 (15:58→16:05)
[2023-05-10] MEDS ORDERED: LIDOCAINE HCL 1%, 10 MG/ML (20ML VIAL) ONE (16:14)
[2023-05-10] MEDS ORDERED: cefTRIAXone SODIUM 1 GM VIAL ONE (16:14)
[2023-05-10 17:33] LABS: SYPHILIS W/ RPR CONF NON-REACTIVE (NONREACTIVE)
[2023-05-10 18:02] LABS: HIV INTERPRETATION NEGATIVE (NEGATIVE)
== END 2023-05-10 16:41 | disposition home or self-care (01) ==
LOC: JER 12:44 → JERFT 12:44
DX: R10.30 Lower abdominal pain, unspecified (principal); N89.8 Other specified noninflammatory disorders of vagina; N76.0 Acute vaginitis; Z11.3 Encounter for screening for infections with a predominantly sexual mode of transmission
CPT/HCPCS: 36415; 81003; 84703; 86780; 87070; 87086; 87205; 87389; 87491; 87591; 87661; 99284-25

== ENCOUNTER 2023-08-02 10:33 | Emergency (ER) | payer OTHER ==
[2023-08-02 10:43] VITALS: BP 122/52; PULSE 89; RESP 18; TEMP 98.2; BMI 43.4
[2023-08-02 12:11] LABS: EPI CELLS 6 /uL (0-25.1); HYALINE CASTS 1 /uL (0-3.1); PH,URINE 8.5 (5.0-8.0); URINE APPEARANCE TURBID; URINE BACTERIA 1351 /uL (0-1359); URINE BILIRUBIN NEGATIVE (NEGATIVE); URINE COLOR YELLOW; URINE GLUCOSE (UA) NEGATIVE (NEGATIVE); URINE KETONE NEGATIVE (NEGATIVE); URINE LEUK ESTERASE 1+ (NEGATIVE); URINE NITRITE NEGATIVE (NEGATIVE); URINE PROTEIN TRACE (NEGATIVE); URINE RBC 14 /uL (0-23.9); URINE WBC 143 /uL (0-25.8)
[2023-08-02 12:13] LABS: HCG,QUALITATIVE URINE Negative
[2023-08-02] MEDS ORDERED: FLUCONAZOLE 150 MG TABLET PO ONE ×2 (12:24→12:30)
[2023-08-02] MEDS ORDERED: DOXYCYCLINE HYCLATE 100 MG CAPSULE PO ONE ×2 (12:25→12:30)
== END 2023-08-02 13:48 | disposition home or self-care (01) ==
LOC: JERFT 10:33 → JER 10:33 → JERFT 13:48
DX: R30.0 Dysuria (principal); R10.2 Pelvic and perineal pain; N73.9 Female pelvic inflammatory disease, unspecified; N39.0 Urinary tract infection, site not specified
CPT/HCPCS: 36415; 81003; 84703; 87070; 87086; 87186; 87205; 87491; 87591; 87661; 99284-25

== ENCOUNTER 2023-08-18 08:56 | Emergency (ER) | payer OTHER ==
[2023-08-18 09:06] VITALS: BP 116/65; PULSE 75; RESP 20; TEMP 97.8; BMI 43.4
[2023-08-18] MEDS ORDERED: MAG HYDROX/AL HYDROX/SIMETH 30 ML UNIT-DOSE CUP PO ONE (09:37)
[2023-08-18] MEDS ORDERED: FAMOTIDINE 20 MG/50 ML IVPB 20 MG/50 ML MG IVPB ONE ×2 (09:37→09:40)
[2023-08-18] MEDS ORDERED: ACETAMINOPHEN 1000 MG/100 ML BAG IVPB ONE (09:37)
[2023-08-18] MEDS ORDERED: MAG HYDROX/AL HYDROX/SIMETH 30 ML UNIT-DOSE CUP ONE (09:40)
[2023-08-18] MEDS ORDERED: ACETAMINOPHEN INJECTION 100 ML IVPB ONE (09:40)
[2023-08-18 10:13] LABS: BASO % 0.4 % (0-2.0); EOS % 6.1 % (0-4.5); HEMATOCRIT 38.9 % (32.4-45.2); HEMOGLOBIN 13.1 GM/dL (10.7-15.3); LYMPH % 33.9 % (8-40); MCH 31.6 pg (25.7-33.7); MCHC 33.6 g/dl (32.0-36.0); MEAN PLT VOLUME 8.1 fl (7.5-11.1); NEUT % 52.6 % (42.8-82.8); PLATELET COUNT 270 10^3/uL (134-434); RBC 4.14 M/mm3 (3.60-5.2); WHITE BLOOD COUNT 6.3 K/mm3 (4.0-10.0)
[2023-08-18 10:42] LABS: POTASSIUM 4.3 mmol/L (3.5-5.1)
[2023-08-18 10:44] LABS: ALBUMIN 3.3 g/dl (3.4-5.0); BLOOD UREA NITROGEN 9.7 mg/dL (7-18); CALCIUM 9.2 mg/dL (8.5-10.1)
[2023-08-18 10:47] LABS: CREATININE 0.7 mg/dL (0.55-1.3)
[2023-08-18 10:49] LABS: BILIRUBIN,TOTAL 0.4 mg/dL (0.2-1); TOT PROT 7.1 g/dl (6.4-8.2)
[2023-08-18] MEDS ORDERED: METOCLOPRAMIDE HCL INJECTION 10 MG/2 ML VIAL IVPUSH ONE (11:29)
[2023-08-18] MEDS ORDERED: METOCLOPRAMIDE HCL INJECTION 10 MG/2 ML VIAL ONE (11:50)
[2023-08-18] MEDS ORDERED: ALBUTEROL SO4 2.5/IPRATROPIUM 0.5 INH SOL 3 ML VIAL.NEB. NEB ONE ×2 (15:08→15:37)
[2023-08-18] MEDS ORDERED: ALBUTEROL SO4 HFA INHALER IH ONE ×2 (15:09→15:37)
== END 2023-08-18 16:03 | disposition home or self-care (01) ==
LOC: JER 08:56
PROC: 3E033GC Introduction of Other Therapeutic Substance into Peripheral Vein, Percutaneous Approach (ICD-10-PCS; principal; 2023-08-18)
PROC: 3E033GC Introduction of Other Therapeutic Substance into Peripheral Vein, Percutaneous Approach (ICD-10-PCS; 2023-08-18)
PROC: 3E033GC Introduction of Other Therapeutic Substance into Peripheral Vein, Percutaneous Approach (ICD-10-PCS; 2023-08-18)
DX: R07.9 Chest pain, unspecified (principal); R00.2 Palpitations; R06.02 Shortness of breath; Z20.822 Contact with and (suspected) exposure to COVID-19
CPT/HCPCS: 0241U-QW; 36415; 71275-TC; 80053; 84484; 84703; 85025; 85379; 93005; 93010; 99285-25; Q9967

== ENCOUNTER 2024-03-14 21:54 | Emergency (ER) | payer OTHER ==
[2024-03-14 22:01] VITALS: BP 120/67; PULSE 89; RESP 20; TEMP 98.2; BMI 42.3
[2024-03-14] MEDS ORDERED: metroNIDAZOLE 250 MG TABLET ONE (22:39)
[2024-03-14] MEDS: metroNIDAZOLE 250 MG TABLET PO ONE (22:40)
[2024-03-14 22:59] LABS: URINE APPEARANCE CLOUDY; URINE BILIRUBIN NEGATIVE (NEGATIVE); URINE COLOR YELLOW; URINE GLUCOSE (UA) NEGATIVE (NEGATIVE); URINE KETONE TRACE (NEGATIVE); URINE LEUK ESTERASE NEGATIVE (NEGATIVE); URINE NITRITE NEGATIVE (NEGATIVE); URINE PROTEIN NEGATIVE (NEGATIVE)
[2024-03-14 23:02] LABS: HCG,QUALITATIVE URINE Negative
== END 2024-03-14 22:53 | disposition home or self-care (01) ==
LOC: JERFT 21:54
DX: N89.8 Other specified noninflammatory disorders of vagina (principal)
CPT/HCPCS: 36415; 81003; 84703; 87070; 87077; 87086; 87205; 87491; 87591; 99283-25

== ENCOUNTER 2024-05-06 00:37 | Emergency (ER) | payer OTHER ==
[2024-05-06 00:57] VITALS: BP 137/72; PULSE 72; RESP 16; TEMP 98.6; BMI 42.3
[2024-05-06 02:05] LABS: EPI CELLS 20 /uL (0-25.1); HYALINE CASTS 0 /uL (0-3.1); URINE APPEARANCE CLEAR; URINE BACTERIA 188 /uL (0-1359); URINE BILIRUBIN NEGATIVE (NEGATIVE); URINE COLOR YELLOW; URINE GLUCOSE (UA) NEGATIVE (NEGATIVE); URINE KETONE NEGATIVE (NEGATIVE); URINE LEUK ESTERASE NEGATIVE (NEGATIVE); URINE NITRITE NEGATIVE (NEGATIVE); URINE PROTEIN NEGATIVE (NEGATIVE); URINE RBC 6 /uL (0-23.9); URINE UROBILINOGEN 0.2 mg/dL (0.2-1.0); URINE WBC 7 /uL (0-25.8)
[2024-05-06 02:33] LABS: BASO % 0.4 % (0-2.0); EOS % 4.3 % (0-4.5); HEMATOCRIT 42.4 % (32.4-45.2); HEMOGLOBIN 14.2 GM/dL (10.7-15.3); LYMPH % 35.5 % (8-40); MCH 31.8 pg (25.7-33.7); MCHC 33.4 g/dl (32.0-36.0); MEAN PLT VOLUME 8.3 fl (7.5-11.1); MONO % 6.4 % (3.8-10.2); NEUT % 53.4 % (42.8-82.8); PLATELET COUNT 291 10^3/uL (134-434); RBC 4.46 M/mm3 (3.60-5.2); RDW 12.9 % (11.6-15.6); WHITE BLOOD COUNT 9.1 K/mm3 (4.0-10.0)
[2024-05-06 03:00] LABS: POTASSIUM 3.9 mmol/L (3.5-5.1)
[2024-05-06 03:02] LABS: CALCIUM 9.2 mg/dL (8.5-10.1)
[2024-05-06 03:03] LABS: ALBUMIN 3.8 g/dl (3.4-5.0); BLOOD UREA NITROGEN 17.2 mg/dL (7-18)
[2024-05-06 03:06] LABS: CREATININE 0.7 mg/dL (0.55-1.3)
[2024-05-06 03:08] LABS: BILIRUBIN,TOTAL 0.4 mg/dL (0.2-1); TOT PROT 7.4 g/dl (6.4-8.2)
[2024-05-06] MEDS ORDERED: DOXYCYCLINE HYCLATE 100 MG CAPSULE PO ONE (04:16)
[2024-05-06] MEDS ORDERED: LIDOCAINE HCL/PF 1% SDV 5ML VIAL ONE (04:18)
[2024-05-06] MEDS: DOXYCYCLINE HYCLATE 100 MG CAPSULE PO ONE (04:25)
[2024-05-06 11:58] LABS: HIV INTERPRETATION NEGATIVE (NEGATIVE)
== END 2024-05-06 04:20 | disposition home or self-care (01) ==
LOC: JER 00:37
DX: R07.89 Other chest pain (principal); R00.2 Palpitations; Z20.2 Contact with and (suspected) exposure to infections with a predominantly sexual mode of transmission
CPT/HCPCS: 36415; 71046-TC-FY; 80053; 81003; 84439; 84443; 84484; 84703; 85025; 86780; 86803; 87086; 87389; 87491; 87591; 87661; 93005; 93010; 99285-25

== ENCOUNTER 2024-06-07 11:10 | Emergency (ER) | payer OTHER ==
[2024-06-07 11:58] VITALS: BP 103/67; PULSE 83; RESP 18; TEMP 98.1; BMI 40.6
[2024-06-07 12:24] LABS: PH,URINE 6.5 (5.0-8.0); URINE APPEARANCE CLEAR; URINE BILIRUBIN NEGATIVE (NEGATIVE); URINE COLOR YELLOW; URINE GLUCOSE (UA) NEGATIVE (NEGATIVE); URINE KETONE NEGATIVE (NEGATIVE); URINE LEUK ESTERASE NEGATIVE (NEGATIVE); URINE NITRITE NEGATIVE (NEGATIVE); URINE PROTEIN NEGATIVE (NEGATIVE); URINE UROBILINOGEN 0.2 mg/dL (0.2-1.0)
[2024-06-07 12:27] LABS: HCG,QUALITATIVE URINE Negative
[2024-06-07 13:04] LABS: BASO % 0.4 % (0-2.0); EOS % 3.6 % (0-4.5); HEMATOCRIT 41.3 % (32.4-45.2); HEMOGLOBIN 13.8 GM/dL (10.7-15.3); LYMPH % 39.2 % (8-40); MCH 31.7 pg (25.7-33.7); MCHC 33.5 g/dl (32.0-36.0); MEAN CELL VOLUME 94.8 fl (80-96); MEAN PLT VOLUME 7.9 fl (7.5-11.1); MONO % 6.7 % (3.8-10.2); NEUT % 50.1 % (42.8-82.8); PLATELET COUNT 309 10^3/uL (134-434); RBC 4.35 M/mm3 (3.60-5.2); RDW 13.1 % (11.6-15.6); WHITE BLOOD COUNT 6.5 K/mm3 (4.0-10.0)
[2024-06-07 13:12] LABS: INR 0.92 (0.83-1.09); PROTHROMBIN TIME (PATIENT) 10.6 SEC (9.7-13.0)
[2024-06-07 13:15] LABS: ACTIVATED PTT 34.7 SECONDS (25.2-36.5)
[2024-06-07 13:22] LABS: POTASSIUM 4.1 mmol/L (3.5-5.1)
[2024-06-07 13:24] LABS: ALBUMIN 3.7 g/dl (3.4-5.0); BLOOD UREA NITROGEN 12.9 mg/dL (7-18); CALCIUM 8.9 mg/dL (8.5-10.1)
[2024-06-07 13:27] LABS: CREATININE 0.8 mg/dL (0.55-1.3)
[2024-06-07] MEDS ORDERED: ACYCLOVIR 200 MG CAPSULE ONE (13:28)
[2024-06-07 13:29] LABS: BILIRUBIN,TOTAL 0.5 mg/dL (0.2-1); TOT PROT 7.6 g/dl (6.4-8.2)
[2024-06-07] MEDS ORDERED: ACETAMINOPHEN INJECTION 100 ML ONE (13:29)
[2024-06-07 13:51] LABS: HIV INTERPRETATION NEGATIVE (NEGATIVE)
[2024-06-07] MEDS: ACYCLOVIR 800 MG TABLET PO ONE (13:53)
[2024-06-07] MEDS: ACETAMINOPHEN 1000 MG/100 ML BAG IVPB ONE (14:24)
[2024-06-07] MEDS ORDERED: KETOROLAC TROMETHAMINE 15 MG/ML VIAL ONE (17:50)
[2024-06-07] MEDS: KETOROLAC TROMETHAMINE 15 MG/ML VIAL IVPUSH ONE (17:59)
== END 2024-06-07 17:59 | disposition home or self-care (01) ==
LOC: JERFT 11:10 → JER 11:10
PROC: 3E033NZ Introduction of Analgesics, Hypnotics, Sedatives into Peripheral Vein, Percutaneous Approach (ICD-10-PCS; principal; 2024-06-07)
PROC: 3E0333Z Introduction of Anti-inflammatory into Peripheral Vein, Percutaneous Approach (ICD-10-PCS; 2024-06-07)
DX: R10.31 Right lower quadrant pain (principal); R10.2 Pelvic and perineal pain
CPT/HCPCS: 36415; 76830-TC; 80053; 81003; 84703; 85025; 85610; 85730; 86803; 87086; 87389; 87491; 87591; 87661; 96374; 96375; 99284-25; J0131